=== PATIENT | male | born 1955 | race Caucasian/White ===

== ENCOUNTER 2017-08-27 14:07 | Inpatient (IN) | payer MEDICARE, MEDICAID, SELFPAY ==
[2017-08-27 14:42] VITALS: BMI 22.5; BMI 22.6
[2017-08-27 14:43] VITALS: BP 117/74; PULSE 88; RESP 20; TEMP 36.8; O2SAT 96
--- NOTE | 2017-08-27 15:26 | PCM.HP.STD ---
Problem List (1) Small and colonic ileus Status: Acute (2) Urine retention Status: Acute Comment: Possible due to bladder outlet obstruction secondary to BPH and postoperative (3) Debility Status: Chronic (4) Hip fracture Status: Acute (5) Status post total hip replacement, left Status: Acute (6) Autism Status: Chronic (7) BPH (benign prostatic hyperplasia) Status: Chronic Qualifiers: Lower urinary tract symptom presence: unspecified whether lower urinary tract symptoms present Qualified Code(s): N40.0 - Benign prostatic hyperplasia without lower urinary tract symptoms (8) GERD (gastroesophageal reflux disease) Status: Chronic Qualifiers: Esophagitis presence: esophagitis presence not specified Qualified Code(s): K21.9 - Gastro-esophageal reflux disease without esophagitis (9) HLD (hyperlipidemia) Status: Chronic Qualifiers: Hyperlipidemia type: unspecified Qualified Code(s): E78.5 - Hyperlipidemia, unspecified (10) HTN (hypertension) Status: Chronic Qualifiers: Hypertension type: essential hypertension Qualified Code(s): I10 - Essential (primary) hypertension (11) Seizure disorder Status: Chronic History of Present Illness Date of Admission: 08/27/17 Chief Complaint: Abdominal distention with discomfort. Constipation The patient is a 62 year old M with history of left subcapital displaced fracture, traumatic in nature due to fall status post left direct anterior total hip replacement on 08/25/[address] Shay was transferred to rehab on 08/26/2017 developed abdominal discomfort with distention after surgery. Patient did not had abdominal distention/pain prior to surgery and hip and pelvic x-ray does not show bowel ileus. [] Patient had abdominal distention on 08/26/2017 night along with dominant discomfort. Abdominal x-ray series was done and shows diffuse distention of the small bowel and colon but no obvious obstruction. NG tube was inserted and had notable improvement. Patient was also given Fleet enema but did not had bowel movement but passed gas. Vitals shows no tachycardia. Blood pressure on the lower side 98/50, 104/61. Currently pulse ox 94% on 2 L of oxygen. Patient was further transferred from acute rehab to [facility] floor. Past Medical History Past Medical History (Chronic Problems): Chronic Problems BPH (benign prostatic hyperplasia) (Chronic) HTN (hypertension) (Chronic) HLD (hyperlipidemia) (Chronic) Seizure disorder (Chronic) GERD (gastroesophageal reflux disease) (Chronic) Autism (Chronic) Debility (Chronic) Allergies No Known Allergies Allergy (Verified 08/24/17 20:55) Home Medications: Ambulatory Orders Medication Instructions Recorded Cholecalciferol (Vitamin D3) 5,000 unit PO DAILY 12/29/14 [Vitamin D3] Clomipramine HCl 100 mg PO QHS 12/29/14 Docusate Calcium 240 mg PO DAILY 12/29/14 Lisinopril [Zestril] 40 mg PO DAILY 12/29/14 Multivit-Min/FA/Lycopene/Lut 1 each PO DAILY 12/29/14 [Centrum Silver Tablet] [place]-3 Fatty Acids/Fish Oil [Fish 2 each PO DAILY 12/29/14 Oil 1,000 mg Capsule] Polyethylene Glycol 3350 [Miralax] 8.5 gm PO DAILY 12/29/14 Amlodipine [Norvasc] 2.5 mg PO DAILY 03/02/16 Tamsulosin HCl [Flomax] 0.8 mg PO DAILY 08/24/17 Acetaminophen [Tylenol] 500 mg PO Q8H PRN PRN 08/26/17 Oxycodone [Oxyir] 5 mg PO Q4H PRN PRN tablet 08/26/17 Rivaroxaban [Xarelto] 10 mg PO DAILY@0600 08/26/17 Senna/Docusate Sodium [Senokot-S] 2 tablet PO BID 08/26/17 Famotidine 20 mg PO 08/27/17 Finasteride [Proscar] 5 mg PO DAILY 08/27/17 Surgical History: appendectomy Psychiatric History: Anxiety, - - OCD tendencies. Smoking Status: Never smoker Review of Systems Constitutional: Reports: Weakness, Fatigue. Denies: Chills, Fever, Weight Change HEENT: Denies: Head Aches, Sinus Congestion, Sinus Drainage Cardiovascular: Denies: Chest Pain, Palpitations Respiratory: Denies: Cough, Shortness of breath at rest, Sputum production Gastrointestinal: Reports: Constipation, Nausea, - - Terminal distention. Denies: Vomiting Genitourinary: Reports: Retention - On Sims catheter. Denies: Dysuria Musculoskeletal: Reports: Joint Pain, Joint Tenderness Skin: Denies: Rash, Wounds Neurological: Denies: Numbness, Tingling, Focal weakness Psychiatric: Denies: Anxiety, Depression, Homicidal Ideations, Suicidal Ideations Hematologic/ Lymphatic: Denies: Easy Bruising, Easy Bleeding VTE Information - Inpt Only VTE Present on Admission: No VTE Mechan Device Prophylaxis: SCD's VTE Pharm Prophylaxis ordered?: Yes Patient Problems: Active and Suspected Problems Small and colonic ileus (Acute) Urine retention (Acute) Possible due to bladder outlet obstruction secondary to BPH and postoperative Objective: General: Alert, Cooperative, Lethargic, 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 Surgical dressing is dry. Expected mild postop tenderness - Physical Exam Vital Signs Temp Pulse Resp BP Pulse Ox 98.2 F 88 20 H 117/74 96 08/27/17 14:43 08/27/17 14:43 08/27/17 14:43 08/27/17 14:43 08/27/17 14:43 Oxygen Flow Rate 3 Oxygen Delivery Method Nasal Cannula Weight: 139 lb 12.369 oz Body Mass Index (BMI) 22.5 Assessment/Plan Active and Suspected Problems Small and colonic ileus (Acute) Urine retention (Acute) Possible due to bladder outlet obstruction secondary to BPH and postoperative The patient is a 62 year old M with history of left subcapital displaced fracture, traumatic in nature due to fall status post left direct anterior total hip replacement on 08/25/[address] Shay was transferred to rehab on 08/26/2017 developed abdominal discomfort with distention after surgery. Patient did not had abdominal distention/pain prior to surgery and hip and pelvic x-ray does not show bowel ileus. [] Patient had abdominal distention on 08/26/2017 night along with dominant discomfort. Abdominal x-ray series was done and shows diffuse distention of the small bowel and colon but no obvious obstruction. NG tube was inserted and had notable improvement. Patient was also given Fleet enema but did not had bowel movement but passed gas. Vitals shows no tachycardia. Blood pressure on the lower side 98/50, 104/61. Currently pulse ox 94% on 2 L of oxygen. Patient was further transferred from acute rehab to [facility] floor. (1) small bowel and colonic ileus most probably postoperative due to opioid and anesthetic agents: Patient is being transferred from acute rehab to the [facility] floor. Acute abdomen series shows diffusely gaseous distended bowel loops throughout the abdomen and pelvis Suggestive of diffuse ileus. distended stomach with retained gastric content. Discussed with surgeon, Dr. Lopez. NG tube ordered. Repeat abdominal series x-ray tomorrow morning. On IV fluid normal saline. On bowel regimen including enema and suppository. Keep the patient n.p.o. 2 ) General debility, Left hip pain s/p mechanical fall w/ left subcapital displaced fracture: Plain film noting left subcapital displaced fracture. Patient had left direct anterior total hip replacement by Dr. Shay on 08/25/2017. Postop day 2. Patient had orthopedic surgery consultation by Dr. Shay. Autism, OCD Tendencies: Maintain on home regimen clomipramine. (3) Hypertension: Patient was on home regimen including Norvasc, lisinopril, PRN hydralazine. Temporarily hold it until the bowel ileus clears up (4) Hyperlipidemia: Not on a statin. (5) BPH with possible bladder outlet obstruction with history of urine retention and Sims catheterization in the past: Currently patient has Sims catheter. Dark urine. UA is negative. Sims catheter was inserted and then removed on 08/26/2017. Patient had urine retention and Sims catheter was reinserted. Will resume dutasteride and Flomax after ileus is resolved. (6) GERD: On IV PPI (7) Hx Seizure disorder: Not on AED, remote, youth (12 years old per family, no marked recurrence). Discussed with the neurologist Dr. Monge. Patient is on clomipramine. On IV Ativan prn. (8) DVT Prophylaxis: SCDs, lovenox Code Visit Inpatient E&M: 03649 Init Hosp L3
--- NOTE | 2017-08-27 15:44 | NURSING ---
Lab staff arrives to collect blood samples.
[2017-08-27 15:59] LABS: Absolute Lymphocyte Count 1.48 X10^3/ul (0.83-4.51); Absolute Neutrophil Count 8.1 X10^3/uL (2.0-7.7); Basophil# 0.07 X10^3/uL; Basophil% 0.6 % (0-1); Eosinophil# 0.08 X10^3/uL; Eosinophils% 0.7 % (0-5); Hematocrit 25.2 % (40-54); Hemoglobin 8.4 g/dl (13.0-16.5); Lymphocyte # 1.48 X10^3/ul (4.0); Lymphocyte % 13.3 % (19-41); Mean Corp Hgb Conc 33.3 g/gl (32-36); Mean Corpuscular Hgb 30.9 pg (27.0-32.0); Mean Corpuscular Volume 92.6 fL (80-94); Mean Platelet Vol. 9.8 fl (6.2-12.0); Monocyte# 1.39 X10^3/uL; Monocyte% 12.5 % (0-10); Neutrophil # 8.06 X10^3/uL (2.7-7.7); Neutrophil % 72.8 % (47-70); POSITIVE DIFFERENTIAL NO; Platelet Count 191 K/mm3 (150-450); RBC Distribution Width CV 13.6 % (11.6-14.6); RBC Distribution Width SD 45.5 fl (35.1-43.9); Red Blood Count 2.72 M/mm3 (4.6-6.2); White Blood Count 11.1 K/mm3 (4.4-11.0)
[2017-08-27 16:00] LABS: POSITIVE COUNT NO; POSITIVE MORPHOLOGY NO
--- NOTE | 2017-08-27 16:09 | RAD_ITS ---
STUDY: X-RAY - ABDOMEN/PELVIS REASON FOR EXAM: Male, 62 years old. NG tube placement TECHNIQUE: Single AP view of the abdomen / pelvis. COMPARISON: Films of the abdomen earlier FINDINGS: NG tube noted with its tip in side port both within the stomach. Gaseous dilated stomach and loops of colon and possible small bowel. Large bowel demonstrates fecal retention. RAD/Abdomen Single View IMPRESSION: NG tube with tip and side-port in the stomach. Gaseous dilated small and large bowel. Electronically Signed: Branden Villeda DO at 17:33 EST Tel , Service support ,
[2017-08-27 16:13] LABS: ALB/GLOB Ratio 0.7 RATIO (0.9-2.4); AST(SGOT) 22 U/L (15-37); Alanine Aminotransfer ALT/SGPT 23 U/L (12-78); Albumin, Serum 2.4 g/dL (3.4-5.0); Alkaline Phosphatase 62 U/L (45-117); Anion Gap 7 (5-15); BUN 28 mg/dL (7-18); BUN/Creat Ratio 37.9 RATIO (10-20); Calcium,Total 8.2 mg/dL (8.5-10.1); Chloride 103 mmol/L (98-107); Creatinine, Serum 0.74 mg/dL (0.70-1.30); EST Glomerular Filtration Rate 115 mL/min (>60); Est Glom Filt Rate - Afr Amer 139 mL/min (>60); Globulin 3.5 g/dL (2.2-4.2); Glucose 103 mg/dL (70-110); Magnesium 1.9 mg/dL (1.6-2.6); Potassium 3.7 mmol/L (3.5-5.1); Protein, Total 5.9 g/dL (6.4-8.2); Sodium Level 136 mmol/L (136-145)
--- NOTE | 2017-08-27 16:21 | NURSING ---
radiology notified of readiness for xray to verify NG placement.
--- NOTE | 2017-08-27 17:26 | CON.PCM_ITS ---
Problem List (1) Postoperative ileus Status: Acute Reason for Consult Date of Consultation: 08/27/17 History of Present Illness: The patient is a 62 year old M who was readmitted to the hospital with a postoperative complication status post left total hip replacement. The patient was admitted by EUGENE Ferrell on August 25, 2017. He was seen in consultation by Dr. Shay and subsequently on August 25 underwent a left direct anterior total hip replacement. The patient postoperatively was provided a regular diet. He was discharged to the rehab unit where he had progressive postoperative distention. An NG tube was placed with some improvement. The patient was given a soapsuds enema here today with some result. The patient has autism and so getting information from him is challenged. Both parents are present in the room with him today. He currently is rehospitalized with an NG tube and Sims catheter in place. Abdominal x- rays that were obtained demonstrates significant gaseous distention of small and large bowel. There is distended stomach with a significant amount of retained gastric contents. His white blood cell count is 11.1 and he is significantly anemic with a hemoglobin of 8.4 and hematocrit of 25.2 and a platelet count of 191,000. There is a slight left shift with 72.8% neutrophils. His BUN is elevated at 28 and creatinine is 0.74. Albumin is low at 2.4. A repeat abdominal x-ray was taken to confirm NG tube placement. I believe I was given report that the patient removed his tube. Fortunately the current findings suggest that the gastric contents have diminished. There is still significant distention of the colon throughout with also still distended small bowel. Maximum colonic diameter is 10 cm. It is of note that family provides history that the patient has had BPH with outlet obstruction. He has been seen by . In addition the patient has chronic constipation. He takes routine daily MiraLAX which causes his stools to be quite loose and watery. If he does not utilize this he becomes severely constipated. I have evidence of a CT scan of the abdomen that was obtained March 02, 2016. That demonstrated marked dilatation of the small bowel and colon with large fecal residue in the descending colon sigmoid colon and rectum. Findings were concerning at that time for ileus versus rectal obstruction. According to family members the patient has a high pain tolerance. The only previous abdominal procedure that he has had was a remote open appendectomy. I have been asked to see this patient by Dr. Blank for general surgical consultation regarding abdominal distention and suspected postoperative ileus. An electronic copy of my consult will be included in the chart Past Medical History Past Medical History (Chronic Problems): Chronic Problems BPH (benign prostatic hyperplasia) (Chronic) HTN (hypertension) (Chronic) HLD (hyperlipidemia) (Chronic) Seizure disorder (Chronic) GERD (gastroesophageal reflux disease) (Chronic) Autism (Chronic) Debility (Chronic) Allergies No Known Allergies Allergy (Verified 08/24/17 20:55) Home Medications: Ambulatory Orders Medication Instructions Recorded Cholecalciferol (Vitamin D3) 5,000 unit PO DAILY 12/29/14 [Vitamin D3] Clomipramine HCl 100 mg PO QHS 12/29/14 Docusate Calcium 240 mg PO DAILY 12/29/14 Lisinopril [Zestril] 40 mg PO DAILY 12/29/14 Multivit-Min/FA/Lycopene/Lut 1 each PO DAILY 12/29/14 [Centrum Silver Tablet] [place]-3 Fatty Acids/Fish Oil [Fish 2 each PO DAILY 12/29/14 Oil 1,000 mg Capsule] Polyethylene Glycol 3350 [Miralax] 8.5 gm PO DAILY 12/29/14 Amlodipine [Norvasc] 2.5 mg PO DAILY 03/02/16 Tamsulosin HCl [Flomax] 0.8 mg PO DAILY 08/24/17 Acetaminophen [Tylenol] 500 mg PO Q8H PRN PRN 08/26/17 Oxycodone [Oxyir] 5 mg PO Q4H PRN PRN tablet 08/26/17 Rivaroxaban [Xarelto] 10 mg PO DAILY@0600 08/26/17 Senna/Docusate Sodium [Senokot-S] 2 tablet PO BID 08/26/17 Famotidine 20 mg PO 08/27/17 Finasteride [Proscar] 5 mg PO DAILY 08/27/17 Surgical History: appendectomy Psychiatric History: Anxiety, - - OCD tendencies. Smoking Status: Never smoker Review of Systems Gastrointestinal: Denies: Abdominal Pain Unable to obtain accurate/complete ROS d/t: Autism. Unable to obtain Patient Problems: Active and Suspected Problems Small and colonic ileus (Acute) Urine retention (Acute) Possible due to bladder outlet obstruction secondary to BPH and postoperative Postoperative ileus (Acute) - Physical Exam General: - - Patient is able to be aroused. He does not appear to be in acute distress and is resting comfortably. NG tube and Sims in place. Oral: Moist Mucosa Lungs: Clear to auscultation Cardiovascular: Regular rate Abdomen: Soft, Non Tender, Distended, - - Very few intermittent bowel sounds noted Well-healed transverse incision right lower quadrant No gross inguinal defects Extremities: No clubbing, No Calf Tenderness Vital Signs Temp Pulse Resp BP Pulse Ox 98.2 F 88 20 H 117/74 96 08/27/17 14:43 08/27/17 14:43 08/27/17 14:43 08/27/17 14:43 08/27/17 14:43 Oxygen Flow Rate 3 Oxygen Delivery Method Nasal Cannula Weight: 139 lb 12.369 oz Body Mass Index (BMI) 22.5 Laboratory Tests Past 24 Hrs 08/27/17 08/27/17 15:47 15:47 WBC 11.1 H RBC 2.72 L Hgb 8.4 L Hct 25.2 L MCV 92.6 MCH 30.9 MCHC 33.3 RDW 13.6 RDW Differential 45.5 H Plt Count 191 MPV 9.8 Immature Gran % (Auto) 0.100 Neut % (Auto) 72.8 H Lymph % (Auto) 13.3 L [place] % (Auto) 12.5 H Eos % (Auto) 0.7 Baso % (Auto) 0.6 Absolute Neuts (auto) 8.1 H Absolute Lymphs (auto) 1.48 Total Counted Not Reportable Sodium 136 Potassium 3.7 Chloride 103 Carbon Dioxide 26.0 Anion Gap 7 BUN 28 H Creatinine 0.74 Estim Creat Clear Calc 95.20 Est GFR (MDRD) Af Amer 139 Est GFR (MDRD) Non-Af 115 BUN/Creatinine Ratio 37.9 H Glucose 103 Calcium 8.2 L Magnesium 1.9 Total Bilirubin 0.40 AST 22 ALT 23 Alkaline Phosphatase 62 Total Protein 5.9 L Albumin 2.4 L Globulin 3.5 Albumin/Globulin Ratio 0.7 L Assessment/Plan Active and Suspected Problems Small and colonic ileus (Acute) Urine retention (Acute) Possible due to bladder outlet obstruction secondary to BPH and postoperative Postoperative ileus (Acute) 62-year-old gentleman with autism and history of chronic constipation consistent with institutionalized bowel. He is on chronic MiraLAX therapy. In 2016 he presented with what appears to have been severe left-sided constipation. On this occasion he had a traumatic hip fracture with surgical repair. Patient was provided narcotics. He was immediately initiated on a regular diet. Abdominal x-rays show findings of the very full stomach and ileus pattern. This will represent a combination of acute and chronic disease. Findings are consistent with postoperative ileus. There are no findings that would suggest bowel obstruction. I do not recommend providing either oral laxatives or rectal enemas at this time. I do believe that the patient should ambulate with assistance. Narcotics should be held. I will recheck abdominal x-rays in the morning. The patient likely chronically has a degree of colonic distention but will need to assess for critical colonic diameter. Currently he does not appear to have an acute surgical abdomen. Will follow with you. Andrez Lopez M.D., F.A.C.S.
--- NOTE | 2017-08-27 17:35 | NURSING ---
Charge nurse, Emy Lopez RN, notifies this nurse that patient has pulled out NG tube. Dr. Lopez notified.
[2017-08-27] MEDS: 0.9% NaCl Peripheral Flush Adult/Peds IV (18:47)
--- NOTE | 2017-08-27 18:48 | RAD_ITS ---
STUDY: X-RAY - ABDOMEN/PELVIS REASON FOR EXAM: Male, 62 years old. An NG tube TECHNIQUE: Single AP view of the abdomen / pelvis. COMPARISON: None. FINDINGS: Enteric tube is seen extending to the left upper abdomen/stomach. Diffuse gaseous distention throughout small bowel and proximal colon with some colonic fecal residue identified. Lower abdomen is not imaged. Degree of bowel dilation is mildly decreased as compared to prior study performed earlier today. There is no demonstrated free abdominal air. The visualized liver, spleen and kidneys are grossly normal in size and morphology. Normal soft tissue structures. There are diffuse degenerative changes of the visualized lumbar spine. RAD/Abdomen Single View (Portable) IMPRESSION: 1. Satisfactory position of enteric tube extending to the stomach. Persistent diffuse large and small bowel ileus. Distal obstruction is felt to be less likely. Electronically Signed: Tomer Awan MD at 21:44 EST , Service support ,
[2017-08-27 20:43] VITALS: BP 123/75; PULSE 80; RESP 20; TEMP 37; O2SAT 95
[2017-08-27 22:52] VITALS: O2SAT 95
--- NOTE | 2017-08-28 00:09 | RAD_ITS ---
STUDY: X-RAY - ABDOMEN/PELVIS REASON FOR EXAM: Male, 62 years old. Nasogastric tube placement. TECHNIQUE: Single AP view of the abdomen / pelvis. COMPARISON: Radiograph of the abdomen dated August 27, 2017. FINDINGS: Normal visualized lung bases. There is a large amount of bowel gas throughout the abdomen and pelvis with gaseous distention of small and large bowel. Enteric tube is present with the tip in the left upper quadrant, probably within the stomach. There is no obvious organomegaly, mass or pathologic calcifications. Normal soft tissue structures. The bones appear osteopenic. RAD/Abdomen Single View (Portable) IMPRESSION: 1. Enteric tube tip appears to be within the stomach. 2. Unchanged appearance of large amount of bowel gas. Electronically Signed: Lianne Tellez MD at 1:47 EST , Service support ,
[2017-08-28 02:43] VITALS: BP 138/73; PULSE 89; RESP 16; TEMP 36.9; O2SAT 93
--- NOTE | 2017-08-28 03:10 | NURSING ---
Up to bathroom with 1 assist and walker. Had large loose BM. Ambulated in [place] and assist back to bed. NG to LCWS. Denies pain.
--- NOTE | 2017-08-28 05:00 | RAD_ITS ---
STUDY: X-RAY - ABDOMEN/PELVIS REASON FOR EXAM: Male, 62 years old. Abdominal distention. TECHNIQUE: AP supine and upright views of the abdomen and pelvis. COMPARISON: Radiographs of the abdomen dated August 28, 2017. FINDINGS: Normal visualized lung bases. There is a large amount of bowel gas throughout small bowel and large bowel in the abdomen and pelvis. Enteric tube is visible within the left upper quadrant and probably in the stomach. There is no obvious organomegaly or mass. No pathologic calcifications are visualized. Normal soft tissue structures. Patient has had a total left hip orthoplasty. RAD/Abd Inc Decub and/or Erect IMPRESSION: Large amount of bowel gas, similar to previous study. Electronically Signed: Lianne Tellez MD at 5:43 EST , Service support ,
[2017-08-28 06:44] LABS: Absolute Lymphocyte Count 1.53 X10^3/ul (0.83-4.51); Absolute Neutrophil Count 7.1 X10^3/uL (2.0-7.7); Basophil# 0.06 X10^3/uL; Basophil% 0.6 % (0-1); Eosinophil# 0.11 X10^3/uL; Eosinophils% 1.1 % (0-5); Hematocrit 23.7 % (40-54); Hemoglobin 7.9 g/dl (13.0-16.5); Lymphocyte # 1.53 X10^3/ul (4.0); Lymphocyte % 15.3 % (19-41); Mean Corp Hgb Conc 33.3 g/gl (32-36); Mean Corpuscular Volume 92.9 fL (80-94); Mean Platelet Vol. 9.9 fl (6.2-12.0); Neutrophil # 7.09 X10^3/uL (2.7-7.7); Neutrophil % 70.7 % (47-70); Platelet Count 217 K/mm3 (150-450); RBC Distribution Width CV 13.6 % (11.6-14.6); RBC Distribution Width SD 46.5 fl (35.1-43.9); Red Blood Count 2.55 M/mm3 (4.6-6.2)
[2017-08-28 06:46] LABS: POSITIVE COUNT NO; POSITIVE DIFFERENTIAL NO; POSITIVE MORPHOLOGY NO
--- NOTE | 2017-08-28 07:05 | PN.SURG_ITS ---
Patient Problems: Active and Suspected Problems Small and colonic ileus (Acute) Urine retention (Acute) Possible due to bladder outlet obstruction secondary to BPH and postoperative Postoperative ileus (Acute) Subjective: Pt appears comfortable Report of very large stool this a.m. approx 3:30am AXRs no change--no enlargement of cecum - Physical Exam Abdomen: Bowel Sounds Present, Soft, Non Tender Vital Signs Temp Pulse Resp BP Pulse Ox 98.4 F 89 16 138/73 H 93 08/28/17 02:43 08/28/17 02:43 08/28/17 02:43 08/28/17 02:43 08/28/17 02:43 Oxygen Flow Rate 3 Oxygen Delivery Method Nasal Cannula Weight: 139 lb 12.369 oz Body Mass Index (BMI) 22.5 Intake and Output for Last 24 Hours 08/26/17 08/27/17 08/28/17 23:59 23:59 23:59 Intake Total 1085 / 1085 Output Total 1500 / 1500 Balance -415 / -415 Laboratory Tests Past 24 Hrs 08/27/17 08/27/17 08/28/17 15:47 15:47 05:48 WBC 11.1 H 10.0 RBC 2.72 L 2.55 L Hgb 8.4 L 7.9 L Hct 25.2 L 23.7 L MCV 92.6 92.9 MCH 30.9 31.0 MCHC 33.3 33.3 RDW 13.6 13.6 RDW Differential 45.5 H 46.5 H Plt Count 191 217 MPV 9.8 9.9 Immature Gran % (Auto) 0.100 0.300 Neut % (Auto) 72.8 H 70.7 H Lymph % (Auto) 13.3 L 15.3 L [place] % (Auto) 12.5 H 12.0 H Eos % (Auto) 0.7 1.1 Baso % (Auto) 0.6 0.6 Absolute Neuts (auto) 8.1 H 7.1 Absolute Lymphs (auto) 1.48 1.53 Total Counted Not Reportable Not Reportable Sodium 136 Potassium 3.7 Chloride 103 Carbon Dioxide 26.0 Anion Gap 7 BUN 28 H Creatinine 0.74 Estim Creat Clear Calc 95.20 Est GFR (MDRD) Af Amer 139 Est GFR (MDRD) Non-Af 115 BUN/Creatinine Ratio 37.9 H Glucose 103 Calcium 8.2 L Magnesium 1.9 Total Bilirubin 0.40 AST 22 ALT 23 Alkaline Phosphatase 62 Total Protein 5.9 L Albumin 2.4 L Globulin 3.5 Albumin/Globulin Ratio 0.7 L 08/28/17 05:48 WBC RBC Hgb Hct MCV MCH MCHC RDW RDW Differential Plt Count MPV Immature Gran % (Auto) Neut % (Auto) Lymph % (Auto) [place] % (Auto) Eos % (Auto) Baso % (Auto) Absolute Neuts (auto) Absolute Lymphs (auto) Total Counted Sodium Pending Potassium Pending Chloride Pending Carbon Dioxide Pending Anion Gap Pending BUN Pending Creatinine Pending Estim Creat Clear Calc Est GFR (MDRD) Af Amer Pending Est GFR (MDRD) Non-Af Pending BUN/Creatinine Ratio Pending Glucose Pending Calcium Pending Magnesium Total Bilirubin AST ALT Alkaline Phosphatase Total Protein Albumin Globulin Albumin/Globulin Ratio Assessment/Plan Active and Suspected Problems Small and colonic ileus (Acute) Urine retention (Acute) Possible due to bladder outlet obstruction secondary to BPH and postoperative Postoperative ileus (Acute) BS are now present and pt has has a non-stimulated large stool Will start clears and if tolerated then can advance as tolerated Can resume his routine miralax bowel regimen His xrays will never return to normal b/o his institutionalized bowel May discharge when tolerates p.o.
--- NOTE | 2017-08-28 07:15 | NURSING ---
NG tube removed per Dr. Baird order. Restraints removed. Bed alarm on.
[2017-08-28 07:20] VITALS: O2SAT 90
[2017-08-28 07:28] LABS: Anion Gap 9 (5-15); BUN 21 mg/dL (7-18); BUN/Creat Ratio 38.4 RATIO (10-20); Chloride 101 mmol/L (98-107); Creatinine, Serum 0.55 mg/dL (0.70-1.30); EST Glomerular Filtration Rate 162 mL/min (>60); Est Glom Filt Rate - Afr Amer 196 mL/min (>60); Estimated Creatinine Clearance 128.08 ml/min; Glucose 86 mg/dL (70-110); Potassium 3.7 mmol/L (3.5-5.1); Sodium Level 135 mmol/L (136-145)
[2017-08-28 07:58] VITALS: BP 135/80; PULSE 95; RESP 16; TEMP 37; O2SAT 90
--- NOTE | 2017-08-28 08:01 | PCM.PN.HOSP ---
Patient Problems: Active and Suspected Problems Small and colonic ileus (Acute) Urine retention (Acute) Possible due to bladder outlet obstruction secondary to BPH and postoperative Postoperative ileus (Acute) Subjective: Patient seen and examined in the presence of patient's father and brother. As per the nursing staff, patient has large loose BM or this morning. Patient ambulating in the oliveira in the morning. Vitals/I&O's: Vital Signs Temp Pulse Resp BP Pulse Ox 98.4 F 89 16 138/73 H 93 08/28/17 02:43 08/28/17 02:43 08/28/17 02:43 08/28/17 02:43 08/28/17 02:43 Oxygen Flow Rate 3 Oxygen Delivery Method Nasal Cannula Weight: 139 lb 12.369 oz Body Mass Index (BMI) 22.5 Intake and Output for Last 24 Hours 08/26/17 08/27/17 08/28/17 23:59 23:59 23:59 Intake Total 1085 / 1085 Output Total 1500 / 1500 Balance -415 / -415 General: Alert, Oriented x3, Cooperative HEENT: Atraumatic, PERRLA, EOMI, Normocephalic Neck: Supple, No JVD, Negative Carotid Bruits Lungs: Clear to auscultation, Normal air movement, No rhonchi, No wheeze, No rales Cardiovascular: Regular rate, Regular Rhythm, Normal S1, Normal S2, No murmurs Abdomen: Bowel Sounds Present, Soft, Non Tender, Non-Distended, Hypoactive Bowel Sounds Extremities: No edema, Capillary Refill Less than 3 Seconds Skin: No rashes, No breakdown Musculoskeletal: No Tenderness to Palpation of Joints or Extremities, - - No tenderness over the left hip present. Dressing is dry Neurological: Cranial nerves II-XII grossly intact Psych/Mental Status: Normal Affect, Appropriate Laboratory Results 08/27/17 15:47: WBC 11.1 H, RBC 2.72 L, Hgb 8.4 L, Hct 25.2 L, MCV 92.6, MCH 30.9, MCHC 33.3, RDW 13.6, RDW Differential 45.5 H, Plt Count 191, MPV 9.8, Immature Gran % (Auto) 0.100, Neut % (Auto) 72.8 H, Lymph % (Auto) 13.3 L, [place] % (Auto) 12.5 H, Eos % (Auto) 0.7, Baso % (Auto) 0.6, Absolute Neuts (auto) 8.1 H, Absolute Lymphs (auto) 1.48, Total Counted Not Reportable 08/27/17 15:47: Sodium 136, Potassium 3.7, Chloride 103, Carbon Dioxide 26.0, Anion Gap 7, BUN 28 H, Creatinine 0.74, Estim Creat Clear Calc 95.20, Est GFR (MDRD) Af Amer 139, Est GFR (MDRD) Non-Af 115, BUN/Creatinine Ratio 37.9 H, Glucose 103, Calcium 8.2 L, Magnesium 1.9, Total Bilirubin 0.40, AST 22, ALT 23, Alkaline Phosphatase 62, Total Protein 5.9 L, Albumin 2.4 L, Globulin 3.5, Albumin/Globulin Ratio 0.7 L 08/28/17 05:48: WBC 10.0, RBC 2.55 L, Hgb 7.9 L, Hct 23.7 L, MCV 92.9, MCH 31.0, MCHC 33.3, RDW 13.6, RDW Differential 46.5 H, Plt Count 217, MPV 9.9, Immature Gran % (Auto) 0.300, Neut % (Auto) 70.7 H, Lymph % (Auto) 15.3 L, [place] % (Auto) 12.0 H, Eos % (Auto) 1.1, Baso % (Auto) 0.6, Absolute Neuts (auto) 7.1, Absolute Lymphs (auto) 1.53, Total Counted Not Reportable 08/28/17 05:48: Sodium 135 L, Potassium 3.7, Chloride 101, Carbon Dioxide 25.0, Anion Gap 9, BUN 21 H, Creatinine 0.55 L, Estim Creat Clear Calc 128.08, Est GFR (MDRD) Af Amer 196, Est GFR (MDRD) Non-Af 162, BUN/Creatinine Ratio 38.4 H, Glucose 86, Calcium 8.0 L Current Medications Acetaminophen (Tylenol) 500 mg PO Q8H PRN PRN PRN Reason: mild/mod pain or fever Amlodipine Besylate (Norvasc) 2.5 mg PO DAILY COUNT INCLUDES [facility] Clomipramine HCl (Anafranil) 100 mg PO QHS [facility] Enoxaparin Sodium (Lovenox) 40 mg SC DAILY@1000 [facility] Finasteride (Proscar) 5 mg PO DAILY COUNT INCLUDES [facility] Hydralazine HCl (Apresoline) 10 mg IV Q4H PRN PRN PRN Reason: SBP>170 mmhg Potassium Chloride/Sodium Chloride () 1,000 mls @ 100 mls/hr IV .Q10H COUNT INCLUDES [facility] Last Admin: 08/28/17 07:11 Dose: 100 mls/hr Pantoprazole Sodium 40 mg/ (Sodium Chloride) 110 mls @ 330 mls/hr IV Q24 [facility] Last Admin: 08/27/17 18:41 Dose: 330 mls/hr Lisinopril (Zestril) 40 mg PO DAILY COUNT [facility]CLUDES [facility] Lorazepam (Ativan) 2 mg IV Q4H PRN PRN PRN Reason: Seizure Ondansetron HCl (Zofran) 4 mg IV Q4H PRN PRN PRN Reason: NAUSEA Polyethylene Glycol (Miralax) 8.5 gm PO DAILY COUNT INCLUDES [facility] Promethazine HCl (Phenergan (Ll)) 12.5 mg IV Q6H PRN PRN PRN Reason: NAUSEA/VOMITING Senna/Docusate Sodium (Senokot-S, Anastacia-Colace) 2 tablet PO BID COUNT [facility]CLUDES [facility] Sodium Chloride () 5 - 30 ml IV UD PRN PRN Reason: SALINE FLUSH Last Admin: 08/27/17 18:47 Dose: 5 ml Tamsulosin HCl (Flomax) 0.8 mg PO DAILY COUNT [facility]CLUDES [facility] Tramadol HCl (Ultram (G)) 50 mg PO Q6H PRN PRN PRN Reason: MODERATE PAIN (4-5/10) Tramadol HCl (Ultram (G)) 100 mg PO Q6H PRN PRN PRN Reason: severe pain Assessment/Plan Active and Suspected Problems Small and colonic ileus (Acute) Urine retention (Acute) Possible due to bladder outlet obstruction secondary to BPH and postoperative Postoperative ileus (Acute) The patient is a 62 year old M with history of left subcapital displaced fracture, traumatic in nature due to fall status post left direct anterior total hip replacement on 08/25/[address] Shay was transferred to rehab on 08/26/2017 developed abdominal discomfort with distention after surgery. Patient did not had abdominal distention/pain prior to surgery and hip and pelvic x-ray does not show bowel ileus. Patient has history of chronic constipation. He did move bowels for 7 days prior to admission. He also had history of marked dilatation of the small bowel and colon with large fecal residue descending colon, sigmoid colon and rectum as per the CT abdomen March 02, 2016. At that time, there was concern of rectal obstruction/ileus. [] Patient had abdominal distention on 08/26/2017 night along with dominant discomfort. Abdominal x-ray series was done and shows diffuse distention of the small bowel and colon but no obvious obstruction. NG tube was inserted and had notable improvement. Patient was also given Fleet enema but did not had bowel movement but passed gas. Vitals shows no tachycardia. Blood pressure on the lower side 98/50, 104/61. Currently pulse ox 94% on 2 L of oxygen. Patient was further transferred from acute rehab to [facility]. (1) small bowel and colonic ileus most probably postoperative due to opioid and anesthetic agents: Patient is being transferred from acute rehab to the [facility]. Acute abdomen series shows diffusely gaseous distended bowel loops throughout the abdomen and pelvis suggestive of diffuse ileus, distended stomach gas and retained gastric content. Discussed with surgeon, Dr. Lopez. NG tube was placed but patient removed. Repeat abdominal series x-ray was done today morning and shows large amount of bowel gas. Patient is responding well with Fleet enema and bowel regimen. Dr. Lopez consult reviewed and appreciated. On IV fluid normal saline. On bowel regimen senna S, MiraLAX including enema and suppository. The patient is started on clear liquid diet. Oral medications resumed. As per his father, BPH runs in his family has patient's grandfather, father all had TURP surgery. 2 ) General debility, Left hip pain s/p mechanical fall w/ left subcapital displaced fracture: Plain film noting left subcapital displaced fracture. Patient is doing good with the physical therapy Patient had left direct anterior total hip replacement by Dr. Shay on 08/25/2017. Postop day 3. Patient had orthopedic surgery consultation by Dr. Shay. Autism, OCD Tendencies: Maintain on home regimen clomipramine. (3) Hypertension: Patient was on home regimen including Norvasc, lisinopril, PRN hydralazine. Temporarily hold it until the bowel ileus clears up (4) Hyperlipidemia: Not on a statin. (5) BPH with possible bladder outlet obstruction with history of urine retention and Sims catheterization in the past: Currently patient has Sims catheter. Dark urine. UA is negative. Sims catheter was inserted and then removed on 08/26/2017. Patient had urine retention and Sims catheter was reinserted. Will resume dutasteride and Flomax after ileus is resolved. Patient follows Dr. Diehl. I think most probably will require Surgery as he still has urinary retention with bladder outlet obstruction on BPH medications. (6) GERD: On IV PPI (7) Hx Seizure disorder: Not on AED, remote, youth (12 years old per family, no marked recurrence). Discussed with the neurologist Dr. Monge. Patient is on clomipramine. On IV Ativan prn. (8) DVT Prophylaxis: SCDs, lovenox Overall, hospital course from the beginning including fall, left hip total replacement, rehab and small and colonic ileus management was discussed with the patient's father and his brother. All questions were answered. Discharge plan anticipate discharge to rehab in 1-2 days. Clinical Impression(s) from Imaging Studies KUB X-Ray 08/28/17 00:09 IMPRESSION: 1. Enteric tube tip appears to be within the stomach. 2. Unchanged appearance of large amount of bowel gas. Electronically Signed: Lianne Tellez MD at 1:47 EST , Service support , Abdomen X-Ray 08/28/17 05:00 IMPRESSION: Large amount of bowel gas, similar to previous study. Electronically Signed: Lianne Tellez MD at 5:43 EST , Service support , Laboratory Results 08/27/17 15:47: WBC 11.1 H, RBC 2.72 L, Hgb 8.4 L, Hct 25.2 L, MCV 92.6, MCH 30.9, MCHC 33.3, RDW 13.6, RDW Differential 45.5 H, Plt Count 191, MPV 9.8, Immature Gran % (Auto) 0.100, Neut % (Auto) 72.8 H, Lymph % (Auto) 13.3 L, [place] % (Auto) 12.5 H, Eos % (Auto) 0.7, Baso % (Auto) 0.6, Absolute Neuts (auto) 8.1 H, Absolute Lymphs (auto) 1.48, Total Counted Not Reportable 08/27/17 15:47: Sodium 136, Potassium 3.7, Chloride 103, Carbon Dioxide 26.0, Anion Gap 7, BUN 28 H, Creatinine 0.74, Estim Creat Clear Calc 95.20, Est GFR (MDRD) Af Amer 139, Est GFR (MDRD) Non-Af 115, BUN/Creatinine Ratio 37.9 H, Glucose 103, Calcium 8.2 L, Magnesium 1.9, Total Bilirubin 0.40, AST 22, ALT 23, Alkaline Phosphatase 62, Total Protein 5.9 L, Albumin 2.4 L, Globulin 3.5, Albumin/Globulin Ratio 0.7 L 08/28/17 05:48: WBC 10.0, RBC 2.55 L, Hgb 7.9 L, Hct 23.7 L, MCV 92.9, MCH 31.0, MCHC 33.3, RDW 13.6, RDW Differential 46.5 H, Plt Count 217, MPV 9.9, Immature Gran % (Auto) 0.300, Neut % (Auto) 70.7 H, Lymph % (Auto) 15.3 L, [place] % (Auto) 12.0 H, Eos % (Auto) 1.1, Baso % (Auto) 0.6, Absolute Neuts (auto) 7.1, Absolute Lymphs (auto) 1.53, Total Counted Not Reportable 08/28/17 05:48: Sodium 135 L, Potassium 3.7, Chloride 101, Carbon Dioxide 25.0, Anion Gap 9, BUN 21 H, Creatinine 0.55 L, Estim Creat Clear Calc 128.08, Est GFR (MDRD) Af Amer 196, Est GFR (MDRD) Non-Af 162, BUN/Creatinine Ratio 38.4 H, Glucose 86, Calcium 8.0 L This note was generated with [employer] software. Every effort was made to ensure accuracy, however computerized fire management specialist mistakes may persist. Code Visit Inpatient E&M: 15720 Subs Hosp L3
[2017-08-28 09:58] VITALS: BP 114/80; PULSE 88; RESP 16; TEMP 37.4; O2SAT 95
[2017-08-28] MEDS: Enoxaparin 40 MG/0.4 ML Syringe SC (10:07)
[2017-08-28] MEDS: Polyethylene Glycol 3350 17 GM PACKET 8.5 GM PO (10:07)
[2017-08-28] MEDS: amLODIPine 2.5 MG Tablet PO (10:07)
[2017-08-28] MEDS: Senna/Docusate Sodium 1 Tablet 2 TABLET PO (10:08)
[2017-08-28] MEDS: Lisinopril 40 MG Tablet PO (10:08)
[2017-08-28] MEDS: Finasteride 5 MG Tablet PO (10:11)
[2017-08-28 16:32] VITALS: BP 119/67; PULSE 88; RESP 16; TEMP 37; O2SAT 94
[2017-08-28] MEDS: Tamsulosin HCl 0.4 MG Capsule 0.8 MG PO (16:39)
[2017-08-28 20:30] VITALS: BP 130/76; PULSE 83; RESP 18; TEMP 36.9; O2SAT 94
[2017-08-29 02:30] VITALS: BP 130/79; PULSE 90; RESP 16; TEMP 36.2; O2SAT 94
--- NOTE | 2017-08-29 05:42 | PCM.PN.SRG ---
Patient Problems: Active and Suspected Problems Small and colonic ileus (Acute) Urine retention (Acute) Possible due to bladder outlet obstruction secondary to BPH and postoperative Postoperative ileus (Acute) Subjective: Pt appears very comfortable Report of liquid stool/diarrhea - Physical Exam General: Cooperative Abdomen: Bowel Sounds Present, Soft, Non Tender Vital Signs Temp Pulse Resp BP Pulse Ox 97.2 F L 90 16 130/79 H 94 08/29/17 02:30 08/29/17 02:30 08/29/17 02:30 08/29/17 02:30 08/29/17 02:30 Oxygen Flow Rate 2 Oxygen Delivery Method Room Air Weight: 139 lb 12.369 oz Body Mass Index (BMI) 22.5 Intake and Output for Last 24 Hours 08/27/17 08/28/17 08/29/17 23:59 23:59 23:59 Intake Total 2437 / 2437 1500 / 1500 Output Total 2225 / 2225 1350 / 1350 Balance 212 / 212 150 / 150 Laboratory Tests Past 24 Hrs 08/28/17 08/28/17 05:48 05:48 WBC 10.0 RBC 2.55 L Hgb 7.9 L Hct 23.7 L MCV 92.9 MCH 31.0 MCHC 33.3 RDW 13.6 RDW Differential 46.5 H Plt Count 217 MPV 9.9 Immature Gran % (Auto) 0.300 Neut % (Auto) 70.7 H Lymph % (Auto) 15.3 L [place] % (Auto) 12.0 H Eos % (Auto) 1.1 Baso % (Auto) 0.6 Absolute Neuts (auto) 7.1 Absolute Lymphs (auto) 1.53 Total Counted Not Reportable Sodium 135 L Potassium 3.7 Chloride 101 Carbon Dioxide 25.0 Anion Gap 9 BUN 21 H Creatinine 0.55 L Estim Creat Clear Calc 128.08 Est GFR (MDRD) Af Amer 196 Est GFR (MDRD) Non-Af 162 BUN/Creatinine Ratio 38.4 H Glucose 86 Calcium 8.0 L Assessment/Plan Active and Suspected Problems Small and colonic ileus (Acute) Urine retention (Acute) Possible due to bladder outlet obstruction secondary to BPH and postoperative Postoperative ileus (Acute) Ileus appears to have resolve Advance to reg diet and anticipate DC
[2017-08-29 08:15] VITALS: O2SAT 93
[2017-08-29 10:02] VITALS: BP 129/88; PULSE 85; RESP 16; TEMP 36.7; O2SAT 100
[2017-08-29] MEDS: Enoxaparin 40 MG/0.4 ML Syringe SC (10:09)
[2017-08-29] MEDS: amLODIPine 2.5 MG Tablet PO (10:09)
[2017-08-29] MEDS: Polyethylene Glycol 3350 17 GM PACKET 8.5 GM PO (10:09)
[2017-08-29] MEDS: Finasteride 5 MG Tablet PO (10:10)
[2017-08-29] MEDS: Lisinopril 40 MG Tablet PO (10:11)
[2017-08-29 13:18] VITALS: BP 128/79; PULSE 90; RESP 18; TEMP 36.7; O2SAT 92
--- NOTE | 2017-08-29 13:30 | CASEMGMT ---
Social Work Note Call from [facility] stating that the pt could be accepted back to the [facility] tomorrow, 08/30. Confirmed with pt's parents that the discharge plan once medically stable would be to return to . No further needs identified at this time. SW to continue to follow and assist with discharge planning. Plan: for continued therapy. RACHID LeeW
--- NOTE | 2017-08-29 15:31 | PCM.PN.HOSP ---
Patient Problems: Active and Suspected Problems Small and colonic ileus (Acute) Urine retention (Acute) Possible due to bladder outlet obstruction secondary to BPH and postoperative Postoperative ileus (Acute) Subjective: Feeling well. Tolerated breakfast today. Vitals/I&O's: Vital Signs Temp Pulse Resp BP Pulse Ox 36.7 C 90 18 128/79 H 92 08/29/17 13:18 08/29/17 13:18 08/29/17 13:18 08/29/17 13:18 08/29/17 13:18 Oxygen Flow Rate 2 Oxygen Delivery Method Room Air Weight: 63.4 kg Body Mass Index (BMI) 22.5 Intake and Output for Last 24 Hours 08/27/17 08/28/17 08/29/17 23:59 23:59 23:59 Intake Total 2437 / 2437 2336 / 2336 Output Total 2225 / 2225 2350 / 2350 Balance 212 / 212 -14 / -14 General: Alert, No apparent distress, - - A phasic. Afebrile. HEENT: Atraumatic, Normocephalic Neck: No Nodes, Thyroid Normal Size and Texture Lungs: Clear to auscultation, Normal air movement, No rhonchi, No wheeze Cardiovascular: Regular rate, Regular Rhythm, Normal S1, Normal S2, No murmurs Abdomen: Bowel Sounds Present, Soft, Non Tender, Non-Distended, No Hepato-splenomegaly, - - Catheter in place. Light hammad urine. Extremities: No edema, No Calf Tenderness Psych/Mental Status: Normal Affect, Appropriate Current Medications Acetaminophen (Tylenol) 500 mg PO Q8H PRN PRN PRN Reason: mild/mod pain or fever Amlodipine Besylate (Norvasc) 2.5 mg PO DAILY [facility] Last Admin: 08/29/17 10:09 Dose: 2.5 mg Clomipramine HCl (Anafranil) 100 mg PO QHS [facility] Last Admin: 08/28/17 22:00 Dose: 100 mg Enoxaparin Sodium (Lovenox) 40 mg SC DAILY@1000 [facility] Last Admin: 08/29/17 10:09 Dose: 40 mg Finasteride (Proscar) 5 mg PO DAILY [facility] Last Admin: 08/29/17 10:10 Dose: 5 mg Hydralazine HCl (Apresoline) 10 mg IV Q4H PRN PRN PRN Reason: SBP>170 mmhg Pantoprazole Sodium 40 mg/ (Sodium Chloride) 110 mls @ 330 mls/hr IV Q24 [facility] Last Admin: 08/29/17 10:17 Dose: 330 mls/hr Potassium Chloride/Sodium Chloride () 1,000 mls @ 30 mls/hr IV .[id number] [facility] Lisinopril (Zestril) 40 mg PO DAILY [facility] Last Admin: 08/29/17 10:11 Dose: 40 mg Lorazepam (Ativan) 2 mg IV Q4H PRN PRN PRN Reason: Seizure Ondansetron HCl (Zofran) 4 mg IV Q4H PRN PRN PRN Reason: NAUSEA Polyethylene Glycol (Miralax) 8.5 gm PO DAILY [facility] Last Admin: 08/29/17 10:09 Dose: 8.5 gm Promethazine HCl (Phenergan (Ll)) 12.5 mg IV Q6H PRN PRN PRN Reason: NAUSEA/VOMITING Senna/Docusate Sodium (Senokot-S, Anastacia-Colace) 2 tablet PO BID [facility] Last Admin: 08/29/17 10:10 Dose: Not Given Sodium Chloride () 5 - 30 ml IV UD PRN PRN Reason: SALINE FLUSH Last Admin: 08/27/17 18:47 Dose: 5 ml Tamsulosin HCl (Flomax) 0.8 mg PO DAILY@1730 [facility] Last Admin: 08/28/17 16:39 Dose: 0.8 mg Tramadol HCl (Ultram (G)) 50 mg PO Q6H PRN PRN PRN Reason: MODERATE PAIN (4-5/10) Tramadol HCl (Ultram (G)) 100 mg PO Q6H PRN PRN PRN Reason: severe pain Assessment/Plan Active and Suspected Problems Small and colonic ileus (Acute) Urine retention (Acute) Possible due to bladder outlet obstruction secondary to BPH and postoperative Postoperative ileus (Acute) 1. Ileus Resolved diet advanced 2. Urinary retention Likely due to BPH Remove catheter and check postvoid residual. Continue with finasteride and Flomax. Follow-up with Dr. Diehl as outpt. 3. Left femoral neck fracture Status post left direct anterior total hip replacement on the . Follow-up with Dr. Shay 4. DVT prophylaxis with Lovenox Plan is for the patient to be discharged back to rehab on the Discussed with patient's mother and caregiver at bedside. Code Visit Inpatient E&M: 33379 Subs Hosp L2
--- NOTE | 2017-08-29 15:37 | PN_ITS ---
Patient Problems: Active and Suspected Problems Small and colonic ileus (Acute) Urine retention (Acute) Possible due to bladder outlet obstruction secondary to BPH and postoperative Postoperative ileus (Acute) Subjective: Feeling well. Tolerated breakfast today. Vitals/I&O's: Vital Signs Temp Pulse Resp BP Pulse Ox 36.7 C 90 18 128/79 H 92 08/29/17 13:18 08/29/17 13:18 08/29/17 13:18 08/29/17 13:18 08/29/17 13:18 Oxygen Flow Rate 2 Oxygen Delivery Method Room Air Weight: 63.4 kg Body Mass Index (BMI) 22.5 Intake and Output for Last 24 Hours 08/27/17 08/28/17 08/29/17 23:59 23:59 23:59 Intake Total 2437 / 2437 2336 / 2336 Output Total 2225 / 2225 2350 / 2350 Balance 212 / 212 -14 / -14 General: Alert, No apparent distress, - - A phasic. Afebrile. HEENT: Atraumatic, Normocephalic Neck: No Nodes, Thyroid Normal Size and Texture Lungs: Clear to auscultation, Normal air movement, No rhonchi, No wheeze Cardiovascular: Regular rate, Regular Rhythm, Normal S1, Normal S2, No murmurs Abdomen: Bowel Sounds Present, Soft, Non Tender, Non-Distended, No Hepato- splenomegaly, - - Catheter in place. Light hammad urine. Extremities: No edema, No Calf Tenderness Psych/Mental Status: Normal Affect, Appropriate Current Medications Acetaminophen (Tylenol) 500 mg PO Q8H PRN PRN PRN Reason: mild/mod pain or fever Amlodipine Besylate (Norvasc) 2.5 mg PO DAILY [facility] Last Admin: 08/29/17 10:09 Dose: 2.5 mg Clomipramine HCl (Anafranil) 100 mg PO QHS [facility] Last Admin: 08/28/17 22:00 Dose: 100 mg Enoxaparin Sodium (Lovenox) 40 mg SC DAILY@1000 [facility] Last Admin: 08/29/17 10:09 Dose: 40 mg Finasteride (Proscar) 5 mg PO DAILY [facility] Last Admin: 08/29/17 10:10 Dose: 5 mg Hydralazine HCl (Apresoline) 10 mg IV Q4H PRN PRN PRN Reason: SBP>170 mmhg Pantoprazole Sodium 40 mg/ (Sodium Chloride) 110 mls @ 330 mls/hr IV Q24 [facility] Last Admin: 08/29/17 10:17 Dose: 330 mls/hr Potassium Chloride/Sodium Chloride () 1,000 mls @ 30 mls/hr IV .[id number] [facility] Lisinopril (Zestril) 40 mg PO DAILY [facility] Last Admin: 08/29/17 10:11 Dose: 40 mg Lorazepam (Ativan) 2 mg IV Q4H PRN PRN PRN Reason: Seizure Ondansetron HCl (Zofran) 4 mg IV Q4H PRN PRN PRN Reason: NAUSEA Polyethylene Glycol (Miralax) 8.5 gm PO DAILY [facility] Last Admin: 08/29/17 10:09 Dose: 8.5 gm Promethazine HCl (Phenergan (Ll)) 12.5 mg IV Q6H PRN PRN PRN Reason: NAUSEA/VOMITING Senna/Docusate Sodium (Senokot-S, Anastacia-Colace) 2 tablet PO BID [facility] Last Admin: 08/29/17 10:10 Dose: Not Given Sodium Chloride () 5 - 30 ml IV UD PRN PRN Reason: SALINE FLUSH Last Admin: 08/27/17 18:47 Dose: 5 ml Tamsulosin HCl (Flomax) 0.8 mg PO DAILY@1730 [facility] Last Admin: 08/28/17 16:39 Dose: 0.8 mg Tramadol HCl (Ultram (G)) 50 mg PO Q6H PRN PRN PRN Reason: MODERATE PAIN (4-5/10) Tramadol HCl (Ultram (G)) 100 mg PO Q6H PRN PRN PRN Reason: severe pain Assessment/Plan Active and Suspected Problems Small and colonic ileus (Acute) Urine retention (Acute) Possible due to bladder outlet obstruction secondary to BPH and postoperative Postoperative ileus (Acute) 1. Ileus Resolved diet advanced 2. Urinary retention Likely due to BPH Remove catheter and check postvoid residual. Continue with finasteride and Flomax. Follow-up with Dr. Diehl as outpt. 3. Left femoral neck fracture Status post left direct anterior total hip replacement on the . Follow-up with Dr. Shay 4. DVT prophylaxis with Lovenox Plan is for the patient to be discharged back to rehab on the Discussed with patient's mother and caregiver at bedside. Code Visit Inpatient E&M: 91563 Subs Hosp L2
[2017-08-29] MEDS: Tamsulosin HCl 0.4 MG Capsule 0.8 MG PO (17:09)
[2017-08-29 17:15] VITALS: BP 114/71; PULSE 79; RESP 16; TEMP 36.7; O2SAT 94
[2017-08-29 20:32] VITALS: BP 109/79; PULSE 82; RESP 16; TEMP 37.3; O2SAT 100
[2017-08-30 01:52] VITALS: BP 123/77; PULSE 86; RESP 16; TEMP 37.2; O2SAT 98
[2017-08-30] MEDS: Polyethylene Glycol 3350 17 GM PACKET 8.5 GM PO (09:53)
[2017-08-30] MEDS: Lisinopril 40 MG Tablet PO (09:53)
[2017-08-30] MEDS: Enoxaparin 40 MG/0.4 ML Syringe SC (09:53)
[2017-08-30] MEDS: Finasteride 5 MG Tablet PO (09:53)
[2017-08-30] MEDS: Pantoprazole Sodium 40 MG Tablet PO (09:53)
[2017-08-30] MEDS: amLODIPine 2.5 MG Tablet PO (09:53)
[2017-08-30 10:00] VITALS: BP 122/78; PULSE 82; RESP 16; TEMP 36.6; O2SAT 98
--- NOTE | 2017-08-30 10:27 | CASEMGMT ---
Social Work Note Pt stable for discharge this date according to attending physician. [facility] notified and pt to discharge this date. Plan: [facility] for continued therapy. Jinny Bentley, COMMODITIES MANAGER SECTION HAND HELPER
--- NOTE | 2017-08-30 11:03 | PCM.PN.HOSP ---
Patient Problems: Active and Suspected Problems Small and colonic ileus (Acute) Urine retention (Acute) Possible due to bladder outlet obstruction secondary to BPH and postoperative Postoperative ileus (Acute) Subjective: Patient had issues in regards to urinary retention. Required being straight cathed last night. Patient said that he voided though the nurse did not see anything this morning but patient was bladder scanned for 450 cc of urine. Vitals/I&O's: Vital Signs Temp Pulse Resp BP Pulse Ox 37.2 C 86 16 123/77 H 98 08/30/17 01:52 08/30/17 01:52 08/30/17 01:52 08/30/17 01:52 08/30/17 01:52 Oxygen Flow Rate 2 Oxygen Delivery Method Room Air Weight: 63.4 kg Body Mass Index (BMI) 22.5 Intake and Output for Last 24 Hours 08/28/17 08/29/17 08/30/17 23:59 23:59 23:59 Intake Total 2437 / 2437 2911 / 2911 Output Total 2225 / 2225 2825 / 2825 650 / 650 Balance 212 / 212 86 / 86 -650 / -650 General: Alert, - - Sepsis eye contact. Mumbles yes and no to questions appropriately. HEENT: Atraumatic, Normocephalic Abdomen: Bowel Sounds Present, Soft, - - Suprapubic tenderness. Bladder not palpable. Extremities: No edema, No Calf Tenderness Psych/Mental Status: Normal Affect, Appropriate Current Medications Acetaminophen (Tylenol) 500 mg PO Q8H PRN PRN PRN Reason: mild/mod pain or fever Amlodipine Besylate (Norvasc) 2.5 mg PO DAILY [facility] Last Admin: 08/30/17 09:53 Dose: 2.5 mg Clomipramine HCl (Anafranil) 100 mg PO QHS [facility] Last Admin: 08/29/17 21:13 Dose: 100 mg Enoxaparin Sodium (Lovenox) 40 mg SC DAILY@1000 [facility] Last Admin: 08/30/17 09:53 Dose: 40 mg Finasteride (Proscar) 5 mg PO DAILY [facility] Last Admin: 08/30/17 09:53 Dose: 5 mg Hydralazine HCl (Apresoline) 10 mg IV Q4H PRN PRN PRN Reason: SBP>170 mmhg Potassium Chloride/Sodium Chloride () 1,000 mls @ 30 mls/hr IV .[id number] [facility] Last Admin: 08/30/17 06:04 Dose: 30 mls/hr Lisinopril (Zestril) 40 mg PO DAILY [facility] Last Admin: 08/30/17 09:53 Dose: 40 mg Lorazepam (Ativan) 2 mg IV Q4H PRN PRN PRN Reason: Seizure Ondansetron HCl (Zofran) 4 mg IV Q4H PRN PRN PRN Reason: NAUSEA Pantoprazole Sodium (Protonix) 40 mg PO DAILY [facility] Last Admin: 08/30/17 09:53 Dose: 40 mg Polyethylene Glycol (Miralax) 8.5 gm PO DAILY [facility] Last Admin: 08/30/17 09:53 Dose: 8.5 gm Promethazine HCl (Phenergan (Ll)) 12.5 mg IV Q6H PRN PRN PRN Reason: NAUSEA/VOMITING Senna/Docusate Sodium (Senokot-S, Anastacia-Colace) 2 tablet PO BID [facility] Last Admin: 08/30/17 09:54 Dose: Not Given Sodium Chloride () 5 - 30 ml IV UD PRN PRN Reason: SALINE FLUSH Last Admin: 08/27/17 18:47 Dose: 5 ml Tamsulosin HCl (Flomax) 0.8 mg PO DAILY@1730 [facility] Last Admin: 08/29/17 17:09 Dose: 0.8 mg Tramadol HCl (Ultram (G)) 50 mg PO Q6H PRN PRN PRN Reason: MODERATE PAIN (4-5/10) Tramadol HCl (Ultram (G)) 100 mg PO Q6H PRN PRN PRN Reason: severe pain Assessment/Plan Active and Suspected Problems Small and colonic ileus (Acute) Urine retention (Acute) Possible due to bladder outlet obstruction secondary to BPH and postoperative Postoperative ileus (Acute) 1. Ileus Resolved diet advanced 2. Urinary retention Likely due to BPH Patient still with urinary retention after the catheter has been removed. We will replace Sims catheter. Continue with finasteride and Flomax. Follow-up with Dr. Diehl as outpt. 3. Left femoral neck fracture Status post left direct anterior total hip replacement on the . Follow-up with Dr. Shay 4. DVT prophylaxis with Lovenox Discharge to rehab today. Discussed with patient's mother and caregiver at bedside.
--- NOTE | 2017-08-30 11:07 | PN_ITS ---
Patient Problems: Active and Suspected Problems Small and colonic ileus (Acute) Urine retention (Acute) Possible due to bladder outlet obstruction secondary to BPH and postoperative Postoperative ileus (Acute) Subjective: Patient had issues in regards to urinary retention. Required being straight cathed last night. Patient said that he voided though the nurse did not see anything this morning but patient was bladder scanned for 450 cc of urine. Vitals/I&O's: Vital Signs Temp Pulse Resp BP Pulse Ox 37.2 C 86 16 123/77 H 98 08/30/17 01:52 08/30/17 01:52 08/30/17 01:52 08/30/17 01:52 08/30/17 01:52 Oxygen Flow Rate 2 Oxygen Delivery Method Room Air Weight: 63.4 kg Body Mass Index (BMI) 22.5 Intake and Output for Last 24 Hours 08/28/17 08/29/17 08/30/17 23:59 23:59 23:59 Intake Total 2437 / 2437 2911 / 2911 Output Total 2225 / 2225 2825 / 2825 650 / 650 Balance 212 / 212 86 / 86 -650 / -650 General: Alert, - - Sepsis eye contact. Mumbles yes and no to questions appropriately. HEENT: Atraumatic, Normocephalic Abdomen: Bowel Sounds Present, Soft, - - Suprapubic tenderness. Bladder not palpable. Extremities: No edema, No Calf Tenderness Psych/Mental Status: Normal Affect, Appropriate Current Medications Acetaminophen (Tylenol) 500 mg PO Q8H PRN PRN PRN Reason: mild/mod pain or fever Amlodipine Besylate (Norvasc) 2.5 mg PO DAILY [facility] Last Admin: 08/30/17 09:53 Dose: 2.5 mg Clomipramine HCl (Anafranil) 100 mg PO QHS [facility] Last Admin: 08/29/17 21:13 Dose: 100 mg Enoxaparin Sodium (Lovenox) 40 mg SC DAILY@1000 [facility] Last Admin: 08/30/17 09:53 Dose: 40 mg Finasteride (Proscar) 5 mg PO DAILY [facility] Last Admin: 08/30/17 09:53 Dose: 5 mg Hydralazine HCl (Apresoline) 10 mg IV Q4H PRN PRN PRN Reason: SBP>170 mmhg Potassium Chloride/Sodium Chloride () 1,000 mls @ 30 mls/hr IV .[id number] [facility] Last Admin: 08/30/17 06:04 Dose: 30 mls/hr Lisinopril (Zestril) 40 mg PO DAILY [facility] Last Admin: 08/30/17 09:53 Dose: 40 mg Lorazepam (Ativan) 2 mg IV Q4H PRN PRN PRN Reason: Seizure Ondansetron HCl (Zofran) 4 mg IV Q4H PRN PRN PRN Reason: NAUSEA Pantoprazole Sodium (Protonix) 40 mg PO DAILY [facility] Last Admin: 08/30/17 09:53 Dose: 40 mg Polyethylene Glycol (Miralax) 8.5 gm PO DAILY [facility] Last Admin: 08/30/17 09:53 Dose: 8.5 gm Promethazine HCl (Phenergan (Ll)) 12.5 mg IV Q6H PRN PRN PRN Reason: NAUSEA/VOMITING Senna/Docusate Sodium (Senokot-S, Anastacia-Colace) 2 tablet PO BID [facility] Last Admin: 08/30/17 09:54 Dose: Not Given Sodium Chloride () 5 - 30 ml IV UD PRN PRN Reason: SALINE FLUSH Last Admin: 08/27/17 18:47 Dose: 5 ml Tamsulosin HCl (Flomax) 0.8 mg PO DAILY@1730 [facility] Last Admin: 08/29/17 17:09 Dose: 0.8 mg Tramadol HCl (Ultram (G)) 50 mg PO Q6H PRN PRN PRN Reason: MODERATE PAIN (4-5/10) Tramadol HCl (Ultram (G)) 100 mg PO Q6H PRN PRN PRN Reason: severe pain Assessment/Plan Active and Suspected Problems Small and colonic ileus (Acute) Urine retention (Acute) Possible due to bladder outlet obstruction secondary to BPH and postoperative Postoperative ileus (Acute) 1. Ileus Resolved diet advanced 2. Urinary retention Likely due to BPH Patient still with urinary retention after the catheter has been removed. We will replace Sims catheter. Continue with finasteride and Flomax. Follow-up with Dr. Diehl as outpt. 3. Left femoral neck fracture Status post left direct anterior total hip replacement on the . Follow-up with Dr. Shay 4. DVT prophylaxis with Lovenox Discharge to rehab today. Discussed with patient's mother and caregiver at bedside.
--- NOTE | 2017-08-30 11:09 | PCM.DC ---
- Discharge Diagnoses Current Active Problems: Current Active and Chronic Problems Small and colonic ileus (Acute) Urine retention (Acute) Possible due to bladder outlet obstruction secondary to BPH and postoperative Postoperative ileus (Acute) You will use the following diet at home:: No restrictions Your food should be the consistency of: Regular Discharge Activity: Return to Normal Activity Weight Bearing Status: Weight bearing as tolerated Keep extremity elevated above heart level: Left Leg Call your doctor if your incision/area has: Continuous Slow Oozing, Increased Pain/ Swelling, Increased Redness Call your doctor if you observe: Fever of 101 or Higher, Shortness of breath, - - Worsening abdominal pain. Allergies/Adverse Reactions: Allergies No Known Allergies Allergy (Verified 08/24/17 20:55) Medications to take at Discharge Cholecalciferol (Vitamin D3) [Vitamin D3] 5,000 unit PO DAILY 12/29/14 Clomipramine HCl 100 mg PO QHS 12/29/14 Docusate Calcium 240 mg PO DAILY 12/29/14 Lisinopril [Zestril] 40 mg PO DAILY 12/29/14 Multivit-Min/FA/Lycopene/Lut [Centrum Silver Tablet] 1 each PO DAILY 12/29/14 [place]-3 Fatty Acids/Fish Oil [Fish Oil 1,000 mg Capsule] 2 each PO DAILY 12/29/14 Polyethylene Glycol 3350 [Miralax] 8.5 gm PO DAILY 12/29/14 Amlodipine [Norvasc] 2.5 mg PO DAILY 03/02/16 Tamsulosin HCl [Flomax] 0.8 mg PO DAILY 08/24/17 Acetaminophen [Tylenol] 500 mg PO Q8H PRN PRN 08/26/17 Senna/Docusate Sodium [Senokot-S] 2 tablet PO BID 08/26/17 Famotidine 20 mg PO 08/27/17 Finasteride [Proscar] 5 mg PO DAILY 08/27/17 Rivaroxaban [Xarelto] 10 mg PO DAILY@0600 #0 08/30/17 Primary Care Physician: Henrry Mcallister MD [Primary Care Provider] - Please Follow Up With: Alex Diehl MD When: 2 weeks Please Follow Up With: Chemo Shay MD When: 2 weeks Proposed Discharge Date: 08/30/17
--- NOTE | 2017-08-30 11:13 | PCM.DC.SUM ---
Discharge Date and Diagnosis - Problem List Patient Problems: Active and Suspected Problems Urinary retention (Acute) Ileus (Acute) Date of Admission: 08/27/17 Date of Discharge: 08/30/17 - Primary Discharge Diagnosis Active and Suspected Problems Urinary retention (Acute) Ileus (Acute) Small and colonic ileus (Acute) Urine retention (Acute) Possible due to bladder outlet obstruction secondary to BPH and postoperative Postoperative ileus (Acute) - Secondary Discharge Diagnosis Chronic Problems BPH (benign prostatic hyperplasia) (Chronic) HTN (hypertension) (Chronic) HLD (hyperlipidemia) (Chronic) Seizure disorder (Chronic) GERD (gastroesophageal reflux disease) (Chronic) Autism (Chronic) Debility (Chronic) Hospital Course and Treatment Imaging Results: Clinical Impression(s) from Imaging Studies KUB X-Ray 08/27/17 16:09 IMPRESSION: NG tube with tip and side-port in the stomach. Gaseous dilated small and large bowel. Electronically Signed: Branden Villeda DO at 17:33 EST Tel , Service support , KUB X-Ray 08/27/17 18:48 IMPRESSION: 1. Satisfactory position of enteric tube extending to the stomach. Persistent diffuse large and small bowel ileus. Distal obstruction is felt to be less likely. Electronically Signed: Tomer Awan MD at 21:44 EST , Service support , KUB X-Ray 08/28/17 00:09 IMPRESSION: 1. Enteric tube tip appears to be within the stomach. 2. Unchanged appearance of large amount of bowel gas. Electronically Signed: Lianne Tellez MD at 1:47 EST , Service support , Abdomen X-Ray 08/28/17 05:00 IMPRESSION: Large amount of bowel gas, similar to previous study. Electronically Signed: Lianne Tellez MD at 5:43 EST , Service support , Andrez Stearns Operations: None Procedures: None Summary of Care Provided: The patient is a 62 year old M who suffered a hip fracture previously and was sent to rehab. In rehab, patient presented with abdominal distention and discomfort. On patient was found to have a diffusely gaseous distention bowel loops throughout the abdomen pelvis. [place] to be an ileus. Patient had an NG placed. Patient was seen by general surgery. Patient did improve and NG was removed the patient's diet was advanced. Patient has continued to do well. Is unclear if there is any direct correlation with the patient's surgery or not but patient really had an ileus days after his surgery. Patient is doing well. Patient's course was comp gated by urinary retention. Catheter was placed and then removed the patient still continued to have urinary retention. Patient is on finasteride as well as tamsulosin prior. Patient will continue with catheter and follow-up with his urologist as outpatient to see if the catheter could be removed. No further workup is necessary for the patient's ileus at this time. [] Discharge Diet: No Restrictions Discharge Activity: Return to Normal Activity Weight Bearing Status: Weight bearing as tolerated Keep extremity elevated above heart level: Left Leg Call your doctor if your incision/area has: Continuous Slow Oozing, Increased Pain/ Swelling, Increased Redness Call your doctor if you observe: Fever of 101 or Higher, Shortness of breath, - - Worsening abdominal pain. Home Medications: Medications to take at Discharge Cholecalciferol (Vitamin D3) [Vitamin D3] 5,000 unit PO DAILY 12/29/14 Clomipramine HCl 100 mg PO QHS 12/29/14 Docusate Calcium 240 mg PO DAILY 12/29/14 Lisinopril [Zestril] 40 mg PO DAILY 12/29/14 Multivit-Min/FA/Lycopene/Lut [Centrum Silver Tablet] 1 each PO DAILY 12/29/14 [place]-3 Fatty Acids/Fish Oil [Fish Oil 1,000 mg Capsule] 2 each PO DAILY 12/29/14 Polyethylene Glycol 3350 [Miralax] 8.5 gm PO DAILY 12/29/14 Amlodipine [Norvasc] 2.5 mg PO DAILY 03/02/16 Tamsulosin HCl [Flomax] 0.8 mg PO DAILY 08/24/17 Acetaminophen [Tylenol] 500 mg PO Q8H PRN PRN 08/26/17 Senna/Docusate Sodium [Senokot-S] 2 tablet PO BID 08/26/17 Famotidine 20 mg PO 08/27/17 Finasteride [Proscar] 5 mg PO DAILY 08/27/17 Rivaroxaban [Xarelto] 10 mg PO DAILY@0600 #0 08/30/17 Primary Care Physician: Henrry Mcallister MD [Primary Care Provider] - Please Follow Up With: Alex Diehl MD When: 2 weeks Please Follow Up With: Chemo Shay MD When: 2 weeks Disposition: Inpt Rehab Unit/Facility Minutes spent on discharge:: 32 Patient Condition:: Fair Meaningful Use Info Meaningful Use Diagnoses (Choose all that apply): None applicable Code Visit Inpatient E&M: 80507 Disch Hosp
--- NOTE | 2017-08-30 11:18 | DS.PCM_ITS ---
Discharge Date and Diagnosis - Problem List Patient Problems: Active and Suspected Problems Urinary retention (Acute) Ileus (Acute) Date of Admission: 08/27/17 Date of Discharge: 08/30/17 - Primary Discharge Diagnosis Active and Suspected Problems Urinary retention (Acute) Ileus (Acute) Small and colonic ileus (Acute) Urine retention (Acute) Possible due to bladder outlet obstruction secondary to BPH and postoperative Postoperative ileus (Acute) - Secondary Discharge Diagnosis Chronic Problems BPH (benign prostatic hyperplasia) (Chronic) HTN (hypertension) (Chronic) HLD (hyperlipidemia) (Chronic) Seizure disorder (Chronic) GERD (gastroesophageal reflux disease) (Chronic) Autism (Chronic) Debility (Chronic) Hospital Course and Treatment Imaging Results: Clinical Impression(s) from Imaging Studies KUB X-Ray 08/27/17 16:09 IMPRESSION: NG tube with tip and side-port in the stomach. Gaseous dilated small and large bowel. Electronically Signed: Branden Villeda DO at 17:33 EST Tel , Service support , KUB X-Ray 08/27/17 18:48 IMPRESSION: 1. Satisfactory position of enteric tube extending to the stomach. Persistent diffuse large and small bowel ileus. Distal obstruction is felt to be less likely. Electronically Signed: Tomer Awan MD at 21:44 EST , Service support , KUB X-Ray 08/28/17 00:09 IMPRESSION: 1. Enteric tube tip appears to be within the stomach. 2. Unchanged appearance of large amount of bowel gas. Electronically Signed: Lianne Tellez MD at 1:47 EST , Service support , Abdomen X-Ray 08/28/17 05:00 IMPRESSION: Large amount of bowel gas, similar to previous study. Electronically Signed: Lianne Tellez MD at 5:43 EST , Service support , Andrez Stearns Operations: None Procedures: None Summary of Care Provided: The patient is a 62 year old M who suffered a hip fracture previously and was sent to rehab. In rehab, patient presented with abdominal distention and discomfort. On patient was found to have a diffusely gaseous distention bowel loops throughout the abdomen pelvis. [place] to be an ileus. Patient had an NG placed. Patient was seen by general surgery. Patient did improve and NG was removed the patient's diet was advanced. Patient has continued to do well. Is unclear if there is any direct correlation with the patient's surgery or not but patient really had an ileus days after his surgery. Patient is doing well. Patient's course was comp gated by urinary retention. Catheter was placed and then removed the patient still continued to have urinary retention. Patient is on finasteride as well as tamsulosin prior. Patient will continue with catheter and follow-up with his urologist as outpatient to see if the catheter could be removed. No further workup is necessary for the patient's ileus at this time. [] Discharge Diet: No Restrictions Discharge Activity: Return to Normal Activity Weight Bearing Status: Weight bearing as tolerated Keep extremity elevated above heart level: Left Leg Call your doctor if your incision/area has: Continuous Slow Oozing, Increased Pain/ Swelling, Increased Redness Call your doctor if you observe: Fever of 101 or Higher, Shortness of breath, - - Worsening abdominal pain. Home Medications: Medications to take at Discharge Cholecalciferol (Vitamin D3) [Vitamin D3] 5,000 unit PO DAILY 12/29/14 Clomipramine HCl 100 mg PO QHS 12/29/14 Docusate Calcium 240 mg PO DAILY 12/29/14 Lisinopril [Zestril] 40 mg PO DAILY 12/29/14 Multivit-Min/FA/Lycopene/Lut [Centrum Silver Tablet] 1 each PO DAILY 12/29/14 [place]-3 Fatty Acids/Fish Oil [Fish Oil 1,000 mg Capsule] 2 each PO DAILY Polyethylene Glycol 3350 [Miralax] 8.5 gm PO DAILY 12/29/14 Amlodipine [Norvasc] 2.5 mg PO DAILY 03/02/16 Tamsulosin HCl [Flomax] 0.8 mg PO DAILY 08/24/17 Acetaminophen [Tylenol] 500 mg PO Q8H PRN PRN 08/26/17 Senna/Docusate Sodium [Senokot-S] 2 tablet PO BID 08/26/17 Famotidine 20 mg PO 08/27/17 Finasteride [Proscar] 5 mg PO DAILY 08/27/17 Rivaroxaban [Xarelto] 10 mg PO DAILY@0600 #0 08/30/17 Primary Care Physician: Henrry Mcallister MD [Primary Care Provider] - Please Follow Up With: Alex Diehl MD When: 2 weeks Please Follow Up With: Chemo Shay MD When: 2 weeks Disposition: Inpt Rehab Unit/Facility Minutes spent on discharge:: 32 Patient Condition:: Fair Meaningful Use Info Meaningful Use Diagnoses (Choose all that apply): None applicable Code Visit Inpatient E&M: 80309 Disch Hosp
[2017-08-30 11:41] VITALS: O2SAT 96
== END 2017-08-30 15:54 | DRG 394 ==
PROVIDERS: Admitting Provider Internal Medicine; Family Provider Family Medicine; PCP Family Medicine
DX: K91.89 Other postprocedural complications and disorders of digestive system (principal); K56.7 Ileus, unspecified; F84.0 Autistic disorder; Z96.642 Presence of left artificial hip joint; I10 Essential (primary) hypertension; Z79.899 Other long term (current) drug therapy; N40.1 Benign prostatic hyperplasia with lower urinary tract symptoms; R33.8 Other retention of urine
CPT/HCPCS: 36415; 74018; 74019; 80048; 80053; 83735; 85025; 97110; 97116; 97162; 97166; 97530; A4216

== ENCOUNTER 2017-08-30 16:02 | Inpatient (IN) | payer MEDICARE, MEDICAID, SELFPAY ==
--- NOTE | 2017-08-30 16:31 | HP.PCM.COS_ITS ---
History of Present Illness Date of Admission: 08/30/17 Chief Complaint: Left Total Hip Replacement The patient is a 62 year old male who was admitted to the rehab unit for rehabilitation after sustaining a left hip fracture, after a mechanical fall at his intermediate. He has a PMH of HTN, HLD, Autism, OCD, GERD, Remote h/o seizures not on AEDs, He is Non verbal at baseline, he does follow commands. Per the patients family he does not have frequent falls at baseline, he does not use a cane or walker to ambulate, he may need some assistance with his ADLs , and there is a ramp at the intermediate to get into and there are steps in the house but there is no requirement to use the steps and they can be avoided altogether if they need to. He was admitted to the Rehab unit previously but was transferred to the medical floor on 08/27/17, on the night of 08/26/17, the patient developed acute abdominal pain with severe distention the patient was seen by Dr. Webber who obtained a KUB which showed distention of the small bowel and colon, thought to be due to possible ileus secondary, was placed on NGT with suction for decompression, and given fleet enema, with some relief, continued to be symptomatic the morning of 08/27/17, he was then transferred to [facility] inpatient for further surgical evaluation and management for acute abdominal distention. He lives in a intermediate, was previously functional and is admitted to the rehab unit in order to restore his previous level of functional independence. Past Medical History Past Medical History (Chronic Problems): Chronic Problems BPH (benign prostatic hyperplasia) (Chronic) HTN (hypertension) (Chronic) HLD (hyperlipidemia) (Chronic) Seizure disorder (Chronic) GERD (gastroesophageal reflux disease) (Chronic) Autism (Chronic) Debility (Chronic) Allergies No Known Allergies Allergy (Verified 08/24/17 20:55) Home Medications: Ambulatory Orders Medication Instructions Recorded Cholecalciferol (Vitamin D3) 5,000 unit PO DAILY 12/29/14 [Vitamin D3] Clomipramine HCl 100 mg PO QHS 12/29/14 Docusate Calcium 240 mg PO DAILY 12/29/14 Lisinopril [Zestril] 40 mg PO DAILY 12/29/14 Multivit-Min/FA/Lycopene/Lut 1 each PO DAILY 12/29/14 [Centrum Silver Tablet] [place]-3 Fatty Acids/Fish Oil [Fish 2 each PO DAILY 12/29/14 Oil 1,000 mg Capsule] Polyethylene Glycol 3350 [Miralax] 8.5 gm PO DAILY 12/29/14 Amlodipine [Norvasc] 2.5 mg PO DAILY 03/02/16 Tamsulosin HCl [Flomax] 0.8 mg PO DAILY 08/24/17 Acetaminophen [Tylenol] 500 mg PO Q8H PRN PRN 08/26/17 Senna/Docusate Sodium [Senokot-S] 2 tablet PO BID 08/26/17 Famotidine 20 mg PO DAILY 08/27/17 Finasteride [Proscar] 5 mg PO DAILY 08/27/17 Rivaroxaban [Xarelto] 10 mg PO DAILY@0600 #0 08/30/17 Surgical History: appendectomy Psychiatric History: Anxiety, - - OCD tendencies. Lives: - - Lives in a shelter Smoking Status: Never smoker Tobacco Use: Non-smoker Alcohol: None Drugs: None Review of Systems Constitutional: Denies: Chills, Fever, Weight Change HEENT: Denies: Head Aches, Sinus Congestion, Sinus Drainage Cardiovascular: Denies: Chest Pain, Palpitations Respiratory: Denies: Cough, Shortness of breath at rest, Sputum production Gastrointestinal: Denies: Abdominal Pain, Nausea, Vomiting Genitourinary: Denies: Dysuria Musculoskeletal: Denies: Joint Pain, Joint Tenderness Skin: Denies: Rash, Wounds Neurological: Denies: Numbness, Tingling, Focal weakness Psychiatric: Denies: Anxiety, Depression, Homicidal Ideations, Suicidal Ideations Hematologic/ Lymphatic: Denies: Easy Bruising, Easy Bleeding VTE Information - Inpt Only VTE Present on Admission: No VTE Mechan Device Prophylaxis: SCD's, Knee High TYRELL Hose VTE Pharm Prophylaxis ordered?: Yes Patient Problems: Active and Suspected Problems Urinary retention (Acute) Ileus (Acute) - Physical Exam General: Alert, Oriented x3, Cooperative HEENT: Atraumatic, PERRLA, EOMI, Normocephalic Neck: Supple, No JVD, Negative Carotid Bruits Lungs: Clear to auscultation, Normal air movement Cardiovascular: Regular rate, No murmurs Abdomen: Bowel Sounds Present, Soft, Non Tender Extremities: No edema, Capillary Refill Less than 3 Seconds Skin: No rashes, No breakdown Musculoskeletal: No Tenderness to Palpation of Joints or Extremities Neurological: Cranial nerves II-XII grossly intact Psych/Mental Status: Normal Affect, Appropriate Assessment/Plan Active and Suspected Problems Urinary retention (Acute) Ileus (Acute) Debility s/p left hip hip replacement. Goal of rehab is mormon of functional independence. Plan -PT for gait stability -OT for ADLs -Analgesics PRN for pain -Bowel protocol -Left hip replacement-further management per orthopedics recommendation. -Autism, Psychiatry issues and OCD- continue Anafranil 100 mg PO q hs -HTN-continue home medications Amlodipine and Lisinopril. Hold if SBP < 100 mmHg -HLD- not on any medication. Diet and life style modification. Medical management as outpatient per PCP, will defer to PCP. -Seizures- remote history, not on any AEDs -GERD-on Famotidine -BPH- continue Flomax -GI/DVT prophylaxis -On Xarelto per ortho for DVT prophylaxis -Fall precautions -Seizure precautions. -Follow up with orthopedics in 2 weeks as outpatient.
[2017-08-30 20:17] VITALS: O2SAT 94
[2017-08-30 20:54] VITALS: BP 148/92; PULSE 90; RESP 18; TEMP 36.7; O2SAT 98
[2017-08-30 21:10] VITALS: BP 144/86; PULSE 81; RESP 18; TEMP 36.8; O2SAT 98
[2017-08-30] MEDS: Senna/Docusate Sodium 1 Tablet 2 TABLET PO (21:13)
[2017-08-30] MEDS: Acetaminophen 500 MG Tablet PO (21:17)
[2017-08-31 06:05] LABS: Absolute Lymphocyte Count 1.48 X10^3/ul (0.83-4.51); Absolute Neutrophil Count 4.4 X10^3/uL (2.0-7.7); Basophil# 0.11 X10^3/uL; Basophil% 1.5 % (0-1); Eosinophil# 0.16 X10^3/uL; Eosinophils% 2.1 % (0-5); Hematocrit 22.9 % (40-54); Hemoglobin 7.7 g/dl (13.0-16.5); Lymphocyte # 1.48 X10^3/ul (4.0); Lymphocyte % 19.9 % (19-41); Mean Corp Hgb Conc 33.6 g/gl (32-36); Mean Corpuscular Hgb 31.6 pg (27.0-32.0); Mean Corpuscular Volume 93.9 fL (80-94); Mean Platelet Vol. 9.9 fl (6.2-12.0); Monocyte# 1.23 X10^3/uL; Monocyte% 16.5 % (0-10); Neutrophil # 4.44 X10^3/uL (2.7-7.7); Neutrophil % 59.6 % (47-70); Platelet Count 279 K/mm3 (150-450); RBC Distribution Width SD 42.2 fl (35.1-43.9); Red Blood Count 2.44 M/mm3 (4.6-6.2); White Blood Count 7.5 K/mm3 (4.4-11.0)
[2017-08-31 06:22] LABS: POSITIVE COUNT NO; POSITIVE DIFFERENTIAL NO; POSITIVE MORPHOLOGY NO
[2017-08-31 06:27] LABS: ALB/GLOB Ratio 0.6 RATIO (0.9-2.4); AST(SGOT) 16 U/L (15-37); Alanine Aminotransfer ALT/SGPT 19 U/L (12-78); Albumin, Serum 2.3 g/dL (3.4-5.0); Alkaline Phosphatase 64 U/L (45-117); Anion Gap 9 (5-15); BUN 13 mg/dL (7-18); BUN/Creat Ratio 23.6 RATIO (10-20); Calcium,Total 8.3 mg/dL (8.5-10.1); Chloride 104 mmol/L (98-107); Creatinine, Serum 0.55 mg/dL (0.70-1.30); EST Glomerular Filtration Rate 161 mL/min (>60); Est Glom Filt Rate - Afr Amer 195 mL/min (>60); Estimated Creatinine Clearance 120.95 ml/min; Globulin 3.9 g/dL (2.2-4.2); Glucose 86 mg/dL (70-110); Phosphorus 3.8 mg/dL (2.5-4.9); Potassium 3.6 mmol/L (3.5-5.1); Protein, Total 6.2 g/dL (6.4-8.2); Sodium Level 137 mmol/L (136-145)
[2017-08-31] MEDS: Rivaroxaban 10 MG Tablet PO (06:33)
[2017-08-31] MEDS: Acetaminophen 500 MG Tablet PO ×2 (06:40→21:04)
[2017-08-31] MEDS: Polyethylene Glycol 3350 17 GM PACKET 8.5 GM PO (08:25)
[2017-08-31] MEDS: Multivitamins,Ther W-Minerals Tablet 1 TABLET PO (08:26)
[2017-08-31] MEDS: Omega-3 Acid Ethyl Esters 1 GM Capsule 2 GM PO (08:26)
[2017-08-31] MEDS: Tamsulosin HCl 0.4 MG Capsule 0.8 MG PO (08:26)
[2017-08-31] MEDS: Famotidine 20 MG Tablet PO (08:27)
[2017-08-31] MEDS: amLODIPine 2.5 MG Tablet PO (08:27)
[2017-08-31 08:30] VITALS: O2SAT 98
[2017-08-31] MEDS: Finasteride 5 MG Tablet PO (08:30)
[2017-08-31] MEDS: Senna/Docusate Sodium 1 Tablet 2 TABLET PO ×2 (08:30→21:03)
[2017-08-31] MEDS: Lisinopril 40 MG Tablet PO (08:32)
[2017-08-31 08:39] VITALS: BP 131/80; PULSE 82; RESP 16; TEMP 36.7; O2SAT 95
--- NOTE | 2017-08-31 08:50 | NURSING ---
[employer] aware of labs.
--- NOTE | 2017-08-31 15:37 | PCM.PN.HOSP ---
Subjective: Is a 8-year-old white male who suffered a hip fracture and sent to rehab. While in rehab developed abdominal distention and subsequent found to have an ileus. NG was placed something removed as patient improved. Patient today is denying any complaints. States that he is eating. The patient is a very minimal in regards to his interaction overall. Vitals/I&O's: Vital Signs Temp Pulse Resp BP Pulse Ox 36.7 C 82 16 131/80 H 95 08/31/17 08:39 08/31/17 08:39 08/31/17 08:39 08/31/17 08:39 08/31/17 08:39 Oxygen Delivery Method Room Air Weight: 59.87 kg Body Mass Index (BMI) 20.0 Intake and Output for Last 24 Hours 08/29/17 08/30/17 08/31/17 23:59 23:59 23:59 Intake Total 480 / 480 1000 / 1000 Output Total 1025 / 1025 1625 / 1625 Balance -545 / -545 -625 / -625 General: Alert, Cooperative, No apparent distress HEENT: Atraumatic, Normocephalic Neck: No Nodes, Thyroid Normal Size and Texture Lungs: Clear to auscultation, Normal air movement, No rhonchi, No wheeze Cardiovascular: Regular rate, Regular Rhythm, Normal S1, Normal S2, No murmurs Abdomen: Bowel Sounds Present, Soft, Non Tender, No Hepato-splenomegaly, Distended Extremities: No edema, No Calf Tenderness Laboratory Results 08/31/17 05:45: WBC 7.5, RBC 2.44 L, Hgb 7.7 L, Hct 22.9 L, MCV 93.9, MCH 31.6, MCHC 33.6, RDW 13.0, RDW Differential 42.2, Plt Count 279, MPV 9.9, Immature Gran % (Auto) 0.400, Neut % (Auto) 59.6, Lymph % (Auto) 19.9, [place] % (Auto) 16.5 H, Eos % (Auto) 2.1, Baso % (Auto) 1.5 H, Absolute Neuts (auto) 4.4, Absolute Lymphs (auto) 1.48, Total Counted Not Reportable 08/31/17 05:45: Sodium 137, Potassium 3.6, Chloride 104, Carbon Dioxide 24.0, Anion Gap 9, BUN 13, Creatinine 0.55 L, Estim Creat Clear Calc 120.95, Est GFR (MDRD) Af Amer 195, Est GFR (MDRD) Non-Af 161, BUN/Creatinine Ratio 23.6 H, Glucose 86, Calcium 8.3 L, Phosphorus 3.8, Total Bilirubin 0.60, AST 16, ALT 19, Alkaline Phosphatase 64, Total Protein 6.2 L, Albumin 2.3 L, Globulin 3.9, Albumin/Globulin Ratio 0.6 L Current Medications Acetaminophen (Tylenol) 500 mg PO Q8H PRN PRN PRN Reason: mild/mod pain or fever Last Admin: 08/31/17 06:40 Dose: 500 mg Amlodipine Besylate (Norvasc) 2.5 mg PO DAILY [facility] Last Admin: 08/31/17 08:27 Dose: 2.5 mg Bisacodyl (Dulcolax) 10 mg RECTAL .PRN X 1 PRN PRN Reason: Constipation Calcium Carbonate (Os-Junior 500) [facility] Cholecalciferol (Vitamin D) 5,000 unit PO DAILY [facility] Last Admin: 08/31/17 08:28 Dose: 5,000 unit Clomipramine HCl (Anafranil) 100 mg PO QHS [facility] Last Admin: 08/30/17 21:13 Dose: 100 mg Docusate Calcium (Surfak) 240 mg PO DAILY [facility] Last Admin: 08/31/17 08:30 Dose: 240 mg Famotidine (Pepcid) 20 mg PO DAILY [facility] Last Admin: 08/31/17 08:27 Dose: 20 mg Finasteride (Proscar) 5 mg PO DAILY [facility] Last Admin: 08/31/17 08:30 Dose: 5 mg Lisinopril (Zestril) 40 mg PO DAILY [facility] Last Admin: 08/31/17 08:32 Dose: 40 mg Magnesium Hydroxide (Milk Of Magnesia) 30 ml PO .PRN X 1 PRN PRN Reason: Constipation Multivitamins/Minerals (Multivitamin With Minerals) [facility] Last Admin: 08/31/17 08:26 Dose: 1 tablet Aeoqk-5-Ipbh Ethyl Esters (Lovaza) 2 gm PO DAILY [facility] Last Admin: 08/31/17 08:26 Dose: 2 gm Polyethylene Glycol (Miralax) 8.5 gm PO DAILY [facility] Last Admin: 08/31/17 08:25 Dose: 8.5 gm Polysaccharide Iron Complex (Ferrex 150) [facility] Rivaroxaban (Xarelto) 10 mg PO DAILY@0600 [facility] Last Admin: 08/31/17 06:33 Dose: 10 mg Senna/Docusate Sodium (Senokot-S, Anastacia-Colace) 2 tablet PO BID [facility] Last Admin: 08/31/17 08:30 Dose: 2 tablet Tamsulosin HCl (Flomax) 0.8 mg PO DAILY [facility] Last Admin: 08/31/17 08:26 Dose: 0.8 mg Assessment/Plan 1. Ileus Resolved diet advanced 2. Urinary retention Likely due to BPH Patient still with urinary retention after the catheter has been removed. Sims catheter was removed during last hospitalization but had a replaced as patient still having urinary retention. Continue with finasteride and Flomax. Follow-up with Dr. Diehl as outpt. 3. Left femoral neck fracture Status post left direct anterior total hip replacement on the . Follow-up with Dr. Shay 4. DVT prophylaxis with Xarelto Code Visit Inpatient E&M: 92435 Subs Hosp L2
--- NOTE | 2017-08-31 17:10 | PCM.RU.PYE ---
Admission Information Status Changes from Prescreening?: No changes Identified Actual Problem List:: Falls, Pain, ALteration in Cmfrt, Cognitve Impr/Memory Loss, Bladder Incontinence, Mobility Impaired, Self Care Deficit, Ineffect.D/C Plan r/t Psy Potential Problem List:: DVT, Bleeding, Infection, UTI, Aspiration, Falls, Skin Integrity, Depression Risk of Complications DVT: LMWH, TYRELL Hose, Sequential Compression Device Bleeding: Monitor Lab Values, Nursing to Teach Precautions for anti-coagulation therapy., Wound, if applicable, to be assessed every shift., Stroke patients assessed for lethargy or change in status. Infection: Clinical Staff to Monitor for S/S of infection:, S/S of infection include fever, redness, warmth, etc. Urinary Tract Infection: Monitor for frequency, burning, discomfort, or incontinence., Nursing will obtain urine sample for urinalysis and C&S when ordered. Aspiration: Clinical staff will monitor for coughing, drooling, congestion., Speech will evaluate swallowing and dsyphasia., Nursing will monitor patient swallowing during meals. Falls: Patient will be evaluated for Fall Precautions, Patient will be placed on Fall Precautions as indicated per protocol. Skin Breakdown: Nursing will assess skin daily using assessment tool., Nursing will place on Skin Breakdown Precautions as indicated. Pain: Clinical staff will assess patient's pain level per protocol., Medications will be given, if needed, and the pain level reassessed., Other methods: Massage, distraction, decrease stimulus, etc. used PRN. Plan of Care Patient requires physician specializing in physical medicine and rehab oversight to provide close medical supervision of rehab issues including: Pain Management, Sleep Problems, Bowel and Bladder, Medical and co-morbidity Management, DVT prophylaxis, Rehabilitation Leadership, Coordination of treatment team Patient needs Physical Therapy: For a minimum of 1 hour, At least 5 out of 7 days Patient needs Physical Therapy to improve:: Mobility, Mobility, Mobility, Strengthening, Transfers, Stretching, ROM, Endurance, Stairs, Gait, Balance Patient needs Occupational Therapy: For a minimum of 1 hour, At least 5 out of 7 days Patient needs Occupational Therapy to improve ADL's incl.: Eating, Grooming, Bathing, Dressing, Toileting, Toilet transfers, Community Reintegration, Higher functioning activities, Household tasks, Adaptive Equipment, Splinting, Other activities as determined Patient requires speech therapy: For a minimum of 1 hour, At least 5 out of 7 days Patient requires speech therapy for: Swallowing, Cognition, Language Skills, Compensatory Strategies Patient requires 24/ Rehabilitation Nursing for: Pain Issues, Identifying and preventing risk factors, Monitoring and reporting current medical conditions, Assisting with ambulation, transfer, and all ADL's, Teaching patients about disease process and medications, Family teaching, Providing safe environment, Bowel and Bladder Issues, Skin integrity, Medication Management Patient needs Pole Truck Driver/ Case Management for: Discharge Planning, Arranging Home Equipment or Services, Family Interventions Patient needs Dietary and Nutrition Services for: Adequate Nutrition, Nutritional Supplements, Nutritional Education Goals Patient will remain: free from falls, or injury at time of discharge. Patient will perform bed mobility at: MOD I level of assist. Patient will complete transfers from bed to chair at: MOD I level of assist. Patient will ambulate: 100 feet, with MOD I assist, with LRD Patient will complete upper body dressing at: MOD I level of assist. Patient will complete lower body dressing at: MOD I level of assist. Patient will complete toileting at: MOD I level of assist. Patient will perform bathing at: MOD I level of assist. Patient will complete grooming at: MOD I level of assist. Patient will complete home management skills at: MOD I level of assist. Patient will achieve: 12 stairs, at MOD I assist Patient will have pain level of: of 3 or less Patient's skin will: remain intact, free from infection. Patient will receive: adequate nutrition. Discharge Planning Pt Prognosis for Sig. Practical Improv. w/in Reasonable Time: Good Anticipated D/C Destination: Home w/ family or friends Was Preadmission Assessment Accurate?: Yes
[2017-08-31] MEDS: Calcium (Elemental) 500 MG Tablet PO (17:17)
[2017-08-31 21:02] VITALS: BP 147/89; PULSE 90; RESP 16; TEMP 36.6; O2SAT 92
--- NOTE | 2017-09-01 02:52 | NURSING ---
REVIEWED AND AGREE WITH [employer] AND HANDOFF CHARTING.
[2017-09-01] MEDS: Acetaminophen 500 MG Tablet PO ×2 (05:23→21:00)
[2017-09-01] MEDS: Rivaroxaban 10 MG Tablet PO (05:45)
--- NOTE | 2017-09-01 07:32 | PCM.PN.BLA ---
Progress Note 62-year-old male who is in rehab for a broken hip, family and asked me to see him I did see him as an outpatient for urinary retention, chart reviewed continue with Flozurdo and and Proscar as currently done. Given his current situation I do not think any intervention such as a TURP would be advised as of yet I would want him to heal up completely. Agree with current management and he can follow-up with me as an outpatient after he is discharged.
[2017-09-01] MEDS: Polyethylene Glycol 3350 17 GM PACKET 8.5 GM PO (08:16)
[2017-09-01] MEDS: Senna/Docusate Sodium 1 Tablet 2 TABLET PO (08:16)
[2017-09-01] MEDS: Multivitamins,Ther W-Minerals Tablet 1 TABLET PO (08:17)
[2017-09-01] MEDS: Iron Polysaccharide Complex 150 MG CAPSULE PO (08:17)
[2017-09-01] MEDS: amLODIPine 2.5 MG Tablet PO (08:17)
[2017-09-01] MEDS: Omega-3 Acid Ethyl Esters 1 GM Capsule 2 GM PO (08:17)
[2017-09-01] MEDS: Finasteride 5 MG Tablet PO (08:20)
[2017-09-01] MEDS: Tamsulosin HCl 0.4 MG Capsule 0.8 MG PO (08:20)
[2017-09-01] MEDS: Calcium (Elemental) 500 MG Tablet PO ×2 (08:21→16:59)
[2017-09-01] MEDS: Famotidine 20 MG Tablet PO (08:21)
[2017-09-01] MEDS: Lisinopril 40 MG Tablet PO (08:22)
[2017-09-01 08:29] VITALS: BP 123/69; PULSE 83; RESP 17; TEMP 36.4; O2SAT 96
--- NOTE | 2017-09-01 12:27 | PN.NEURO_ITS ---
Subjective: Patient seen and examined. No issues over night. Tolerating therapy and doing very well, he is very cooperative. No issues with GI/. - Physical Exam General: Alert, Oriented x3, Cooperative HEENT: Atraumatic, PERRLA, EOMI, Normocephalic Neck: Supple, No JVD, Negative Carotid Bruits Lungs: Clear to auscultation, Normal air movement Cardiovascular: Regular rate, No murmurs Abdomen: Bowel Sounds Present, Soft, Non Tender Extremities: No edema, Capillary Refill Less than 3 Seconds Skin: No rashes, No breakdown Musculoskeletal: No Tenderness to Palpation of Joints or Extremities Neurological: Cranial nerves II-XII grossly intact Psych/Mental Status: Normal Affect, Appropriate Vital Signs Temp Pulse Resp BP Pulse Ox 97.5 F L 83 17 123/69 H 96 09/01/17 08:29 09/01/17 08:29 09/01/17 08:29 09/01/17 08:29 09/01/17 08:29 Oxygen Delivery Method Room Air Weight: 59.87 kg Body Mass Index (BMI) 20.0 Intake and Output for Last 24 Hours 08/30/17 08/31/17 09/01/17 23:59 23:59 23:59 Intake Total 480 / 480 1960 / 1960 880 / 880 Output Total 1025 / 1025 3500 / 3500 1300 / 1300 Balance -545 / -545 -1540 / -1540 -420 / -420 Active Medications Acetaminophen (Tylenol) 500 mg PO Q8H PRN PRN PRN Reason: mild/mod pain or fever Last Admin: 09/01/17 05:23 Dose: 500 mg Amlodipine Besylate (Norvasc) 2.5 mg PO DAILY [facility] Last Admin: 09/01/17 08:17 Dose: 2.5 mg Bisacodyl (Dulcolax) 10 mg RECTAL .PRN X 1 PRN PRN Reason: Constipation Calcium Carbonate (Os-Junior 500) 500 mg PO BIDCM [facility] Last Admin: 09/01/17 08:21 Dose: 500 mg Cholecalciferol (Vitamin D) 5,000 unit PO DAILY [facility] Last Admin: 09/01/17 08:17 Dose: 5,000 unit Clomipramine HCl (Anafranil) 100 mg PO QHS [facility] Last Admin: 08/31/17 21:03 Dose: 100 mg Docusate Calcium (Surfak) 240 mg PO DAILY [facility] Last Admin: 09/01/17 08:17 Dose: 240 mg Famotidine (Pepcid) 20 mg PO DAILY [facility] Last Admin: 09/01/17 08:21 Dose: 20 mg Finasteride (Proscar) 5 mg PO DAILY [facility] Last Admin: 09/01/17 08:20 Dose: 5 mg Lisinopril (Zestril) 40 mg PO DAILY [facility] Last Admin: 09/01/17 08:22 Dose: 40 mg Magnesium Hydroxide (Milk Of Magnesia) 30 ml PO .PRN X 1 PRN PRN Reason: Constipation Multivitamins/Minerals ([facility]) [facility] Last Admin: 09/01/17 08:17 Dose: 1 tablet Vunvy-8-Auiq Ethyl Esters (Lovaza) 2 gm PO DAILY [facility] Last Admin: 09/01/17 08:17 Dose: 2 gm Polyethylene Glycol (Miralax) 8.5 gm PO DAILY [facility] Last Admin: 09/01/17 08:16 Dose: 8.5 gm Polysaccharide Iron Complex (Ferrex 150) [facility] Last Admin: 09/01/17 08:17 Dose: 150 mg Rivaroxaban (Xarelto) 10 mg PO DAILY@0600 [facility] Last Admin: 09/01/17 05:45 Dose: 10 mg Senna/Docusate Sodium (Senokot-S, Anastacia-Colace) 2 tablet PO BID [facility] Last Admin: 09/01/17 08:16 Dose: 2 tablet Tamsulosin HCl (Flomax) 0.8 mg PO DAILY [facility] Last Admin: 09/01/17 08:20 Dose: 0.8 mg Assessment/Plan Debility s/p left hip hip replacement. Goal of rehab is religious of functional independence. Plan -PT for gait stability -OT for ADLs -Analgesics PRN for pain -Bowel protocol -Left hip replacement-further management per orthopedics recommendation. -Autism, Psychiatry issues and OCD- continue Anafranil 100 mg PO q hs -HTN-continue home medications Amlodipine and Lisinopril. Hold if SBP < 100 mmHg -HLD- not on any medication. Diet and life style modification. Medical management as outpatient per PCP, will defer to PCP. -Seizures- remote history, not on any AEDs -GERD-on Famotidine -BPH- continue Flomax -GI/DVT prophylaxis -On Xarelto per ortho for DVT prophylaxis -Fall precautions -Seizure precautions. -Follow up with orthopedics in 2 weeks as outpatient.
[2017-09-01 13:12] VITALS: O2SAT 97
[2017-09-01 21:04] VITALS: BP 133/85; PULSE 80; RESP 16; TEMP 36.7; O2SAT 93
[2017-09-02] MEDS: Rivaroxaban 10 MG Tablet PO (06:08)
[2017-09-02] MEDS: Acetaminophen 500 MG Tablet PO (06:10)
--- NOTE | 2017-09-02 06:13 | NURSING ---
reviewed and agreed with RN [facility] assessment and documentation.
[2017-09-02 08:51] VITALS: BP 116/69; PULSE 83; RESP 16; TEMP 36.5; O2SAT 95
[2017-09-02] MEDS: Polyethylene Glycol 3350 17 GM PACKET 8.5 GM PO (09:03)
[2017-09-02] MEDS: Omega-3 Acid Ethyl Esters 1 GM Capsule 2 GM PO (09:03)
[2017-09-02] MEDS: amLODIPine 2.5 MG Tablet PO (09:04)
[2017-09-02] MEDS: Iron Polysaccharide Complex 150 MG CAPSULE PO (09:04)
[2017-09-02] MEDS: Famotidine 20 MG Tablet PO (09:04)
[2017-09-02] MEDS: Tamsulosin HCl 0.4 MG Capsule 0.8 MG PO (09:04)
[2017-09-02] MEDS: Calcium (Elemental) 500 MG Tablet PO ×2 (09:04→18:51)
[2017-09-02] MEDS: Multivitamins,Ther W-Minerals Tablet 1 TABLET PO (09:05)
[2017-09-02] MEDS: Finasteride 5 MG Tablet PO (09:05)
[2017-09-02] MEDS: Senna/Docusate Sodium 1 Tablet 2 TABLET PO (09:05)
[2017-09-02] MEDS: Lisinopril 40 MG Tablet PO (10:43)
--- NOTE | 2017-09-02 13:58 | PCM.PN.NEU ---
Subjective: Patient seen and examined. No acute issues overnight. Tolerating therapy. Denies any shortness of breath or chest pains. No issues with GI/. - Physical Exam General: Alert, Oriented x3, Cooperative HEENT: Atraumatic, PERRLA, EOMI, Normocephalic Neck: Supple, No JVD, Negative Carotid Bruits Lungs: Clear to auscultation, Normal air movement Cardiovascular: Regular rate, No murmurs Abdomen: Bowel Sounds Present, Soft, Non Tender Extremities: No edema, Capillary Refill Less than 3 Seconds Skin: No rashes, No breakdown Musculoskeletal: No Tenderness to Palpation of Joints or Extremities Neurological: Cranial nerves II-XII grossly intact Psych/Mental Status: Normal Affect, Appropriate Vital Signs Temp Pulse Resp BP Pulse Ox 97.7 F L 83 16 116/69 95 09/02/17 08:51 09/02/17 08:51 09/02/17 08:51 09/02/17 08:51 09/02/17 08:51 Oxygen Delivery Method Room Air Weight: 59.87 kg Body Mass Index (BMI) 20.0 Intake and Output for Last 24 Hours 08/31/17 09/01/17 09/02/17 23:59 23:59 23:59 Intake Total 1960 / 1960 2270 / 2270 1050 / 1050 Output Total 3500 / 3500 2675 / 2675 1000 / 1000 Balance -1540 / -1540 -405 / -405 50 / 50 Active Medications Acetaminophen (Tylenol) 500 mg PO Q8H PRN PRN PRN Reason: mild/mod pain or fever Last Admin: 09/02/17 06:10 Dose: 500 mg Amlodipine Besylate (Norvasc) 2.5 mg PO DAILY [facility] Bisacodyl (Dulcolax) 10 mg RECTAL .PRN X 1 PRN PRN Reason: Constipation Calcium Carbonate (Os-Junior 500) 500 mg PO BIDCM [facility] Last Admin: 09/02/17 09:04 Dose: 500 mg Cholecalciferol (Vitamin D) 5,000 unit PO DAILY [facility] Last Admin: 09/02/17 09:05 Dose: 5,000 unit Clomipramine HCl (Anafranil) 100 mg PO QHS [facility] Last Admin: 09/01/17 20:59 Dose: 100 mg Docusate Calcium (Surfak) 240 mg PO DAILY [facility] Last Admin: 09/02/17 10:42 Dose: 240 mg Famotidine (Pepcid) 20 mg PO DAILY [facility] Last Admin: 09/02/17 09:04 Dose: 20 mg Fentanyl (Duragesic) 12 mcg TRANSDERM. Q3D [facility] Last Admin: 09/02/17 10:43 Dose: 12 mcg Finasteride (Proscar) 5 mg PO DAILY [facility] Last Admin: 09/02/17 09:05 Dose: 5 mg Lisinopril (Zestril) 40 mg PO DAILY [facility] Magnesium Hydroxide (Milk Of Magnesia) 30 ml PO .PRN X 1 PRN PRN Reason: Constipation Multivitamins/Minerals ([facility]it[facility] With Minerals) [facility] Last Admin: 09/02/17 09:05 Dose: 1 tablet Lhjxs-2-Vxsy Ethyl Esters (Lovaza) 2 gm PO DAILY [facility] Last Admin: 09/02/17 09:03 Dose: 2 gm Polyethylene Glycol (Miralax) 8.5 gm PO DAILY [facility] Last Admin: 09/02/17 09:03 Dose: 8.5 gm Polysaccharide Iron Complex (Ferrex 150) [facility] Last Admin: 09/02/17 09:04 Dose: 150 mg Rivaroxaban (Xarelto) 10 mg PO DAILY@0600 [facility] Last Admin: 09/02/17 06:08 Dose: 10 mg Senna/Docusate Sodium (Senokot-S, Anastacia-Colace) 2 tablet PO BID [facility] Last Admin: 09/02/17 09:05 Dose: 2 tablet Tamsulosin HCl (Flomax) 0.8 mg PO DAILY [facility] Last Admin: 09/02/17 09:04 Dose: 0.8 mg
--- NOTE | 2017-09-02 14:03 | PN.NEURO_ITS ---
Subjective: Patient seen and examined. No acute issues overnight. Tolerating therapy. Denies any shortness of breath or chest pains. No issues with GI/. - Physical Exam General: Alert, Oriented x3, Cooperative HEENT: Atraumatic, PERRLA, EOMI, Normocephalic Neck: Supple, No JVD, Negative Carotid Bruits Lungs: Clear to auscultation, Normal air movement Cardiovascular: Regular rate, No murmurs Abdomen: Bowel Sounds Present, Soft, Non Tender Extremities: No edema, Capillary Refill Less than 3 Seconds Skin: No rashes, No breakdown Musculoskeletal: No Tenderness to Palpation of Joints or Extremities Neurological: Cranial nerves II-XII grossly intact Psych/Mental Status: Normal Affect, Appropriate Vital Signs Temp Pulse Resp BP Pulse Ox 97.7 F L 83 16 116/69 95 09/02/17 08:51 09/02/17 08:51 09/02/17 08:51 09/02/17 08:51 09/02/17 08:51 Oxygen Delivery Method Room Air Weight: 59.87 kg Body Mass Index (BMI) 20.0 Intake and Output for Last 24 Hours 08/31/17 09/01/17 09/02/17 23:59 23:59 23:59 Intake Total 1960 / 1960 2270 / 2270 1050 / 1050 Output Total 3500 / 3500 2675 / 2675 1000 / 1000 Balance -1540 / -1540 -405 / -405 50 / 50 Active Medications Acetaminophen (Tylenol) 500 mg PO Q8H PRN PRN PRN Reason: mild/mod pain or fever Last Admin: 09/02/17 06:10 Dose: 500 mg Amlodipine Besylate (Norvasc) 2.5 mg PO DAILY [facility] Bisacodyl (Dulcolax) 10 mg RECTAL .PRN X 1 PRN PRN Reason: Constipation Calcium Carbonate (Os-Junior 500) 500 mg PO BIDCM [facility] Last Admin: 09/02/17 09:04 Dose: 500 mg Cholecalciferol (Vitamin D) 5,000 unit PO DAILY [facility] Last Admin: 09/02/17 09:05 Dose: 5,000 unit Clomipramine HCl (Anafranil) 100 mg PO QHS [facility] Last Admin: 09/01/17 20:59 Dose: 100 mg Docusate Calcium (Surfak) 240 mg PO DAILY [facility] Last Admin: 09/02/17 10:42 Dose: 240 mg Famotidine (Pepcid) 20 mg PO DAILY [facility] Last Admin: 09/02/17 09:04 Dose: 20 mg Fentanyl (Duragesic) 12 mcg TRANSDERM. Q3D [facility] Last Admin: 09/02/17 10:43 Dose: 12 mcg Finasteride (Proscar) 5 mg PO DAILY [facility] Last Admin: 09/02/17 09:05 Dose: 5 mg Lisinopril (Zestril) 40 mg PO DAILY [facility] Magnesium Hydroxide (Milk Of Magnesia) 30 ml PO .PRN X 1 PRN PRN Reason: Constipation Multivitamins/Minerals ([facility]ivitamin With Minerals) [facility] Last Admin: 09/02/17 09:05 Dose: 1 tablet Vmstd-5-Ghkt Ethyl Esters (Lovaza) 2 gm PO DAILY [facility] Last Admin: 09/02/17 09:03 Dose: 2 gm Polyethylene Glycol (Miralax) 8.5 gm PO DAILY [facility] Last Admin: 09/02/17 09:03 Dose: 8.5 gm Polysaccharide Iron Complex (Ferrex 150) [facility] Last Admin: 09/02/17 09:04 Dose: 150 mg Rivaroxaban (Xarelto) 10 mg PO DAILY@0600 [facility] Last Admin: 09/02/17 06:08 Dose: 10 mg Senna/Docusate Sodium (Senokot-S, Anastacia-Colace) 2 tablet PO BID [facility] Last Admin: 09/02/17 09:05 Dose: 2 tablet Tamsulosin HCl (Flomax) 0.8 mg PO DAILY [facility] Last Admin: 09/02/17 09:04 Dose: 0.8 mg
--- NOTE | 2017-09-02 15:49 | PN_ITS ---
Subjective: No new complaints. No leg pain. Tolerating PO. No abdominal pain. Vitals/I&O's: Vital Signs Temp Pulse Resp BP Pulse Ox 36.5 C L 83 16 116/69 95 09/02/17 08:51 09/02/17 08:51 09/02/17 08:51 09/02/17 08:51 09/02/17 08:51 Oxygen Delivery Method Room Air Weight: 59.87 kg Body Mass Index (BMI) 20.0 Intake and Output for Last 24 Hours 08/31/17 09/01/17 09/02/17 23:59 23:59 23:59 Intake Total 1960 / 1959 2270 / 2270 1050 / 1050 Output Total 3500 / 3500 2675 / 2675 2300 / 2300 Balance -1540 / -1540 -405 / -405 -1250 / -1250 General: Alert, Cooperative, No apparent distress HEENT: Atraumatic, Normocephalic Neck: No Nodes, Thyroid Normal Size and Texture Lungs: Clear to auscultation, Normal air movement, No rhonchi, No wheeze Cardiovascular: Regular rate, Regular Rhythm, Normal S1, Normal S2 Abdomen: Bowel Sounds Present, Soft, Non Tender, Non-Distended, No Hepato- splenomegaly Extremities: No edema, No Calf Tenderness Psych/Mental Status: Normal Affect, Appropriate Current Medications Acetaminophen (Tylenol) 500 mg PO Q8H PRN PRN PRN Reason: mild/mod pain or fever Last Admin: 09/02/17 06:10 Dose: 500 mg Amlodipine Besylate (Norvasc) 2.5 mg PO DAILY [facility] Bisacodyl (Dulcolax) 10 mg RECTAL .PRN X 1 PRN PRN Reason: Constipation Calcium Carbonate (Os-Junior 500) 500 mg PO BIDCM [facility] Last Admin: 09/02/17 09:04 Dose: 500 mg Cholecalciferol (Vitamin D) 5,000 unit PO DAILY [facility] Last Admin: 09/02/17 09:05 Dose: 5,000 unit Clomipramine HCl (Anafranil) 100 mg PO QHS [facility] Last Admin: 09/01/17 20:59 Dose: 100 mg Docusate Calcium (Surfak) 240 mg PO DAILY [facility] Last Admin: 09/02/17 10:42 Dose: 240 mg Famotidine (Pepcid) 20 mg PO DAILY [facility] Last Admin: 09/02/17 09:04 Dose: 20 mg Fentanyl (Duragesic) 12 mcg TRANSDERM. Q3D [facility] Last Admin: 09/02/17 10:43 Dose: 12 mcg Finasteride (Proscar) 5 mg PO DAILY [facility] Last Admin: 09/02/17 09:05 Dose: 5 mg Lisinopril (Zestril) 40 mg PO DAILY [facility] Magnesium Hydroxide (Milk Of Magnesia) 30 ml PO .PRN X 1 PRN PRN Reason: Constipation Multivitamins/Minerals (Multivitamin With Minerals) [facility] Last Admin: 09/02/17 09:05 Dose: 1 tablet Kjpll-5-Hilj Ethyl Esters (Lovaza) 2 gm PO DAILY [facility] Last Admin: 09/02/17 09:03 Dose: 2 gm Polyethylene Glycol (Miralax) 8.5 gm PO DAILY [facility] Last Admin: 09/02/17 09:03 Dose: 8.5 gm Polysaccharide Iron Complex (Ferrex 150) [facility] Last Admin: 09/02/17 09:04 Dose: 150 mg Rivaroxaban (Xarelto) 10 mg PO DAILY@0600 [facility] Last Admin: 09/02/17 06:08 Dose: 10 mg Senna/Docusate Sodium (Senokot-S, Anastacia-Colace) 2 tablet PO BID [facility] Last Admin: 09/02/17 15:04 Dose: Not Given Tamsulosin HCl (Flomax) 0.8 mg PO DAILY [facility] Last Admin: 09/02/17 09:04 Dose: 0.8 mg Assessment/Plan 1. Ileus Resolved diet advanced 2. Urinary retention Likely due to BPH Patient still with urinary retention after the catheter has been removed. Sims catheter was removed during last hospitalization but had a replaced as patient still having urinary retention. Continue with finasteride and Flomax. Follow-up with Dr. Diehl as outpt. 3. Left femoral neck fracture Status post left direct anterior total hip replacement on the . Follow-up with Dr. Shay 4. DVT prophylaxis with Xarelto Code Visit Inpatient E&M: 89744 Subs Hosp L2
[2017-09-02 21:20] VITALS: BP 122/76; PULSE 86; RESP 18; TEMP 36.6; O2SAT 97
--- NOTE | 2017-09-03 02:23 | NURSING ---
Reviewed and agree with TRAFFIC ANALYST Documentation
--- NOTE | 2017-09-03 02:26 | NURSING ---
Addendum entered by Karen Thompson 09/03/17 02:27: Bed alarm and PA reset Original Note: Pt set off alarm and bounded out of bed. Staff found pt getting up and took pt to toilet. Pt directed back to bed and staff repositioned pt in bed.
[2017-09-03] MEDS: Rivaroxaban 10 MG Tablet PO (06:42)
[2017-09-03 08:30] VITALS: BP 130/78; PULSE 80; RESP 18; TEMP 36.8; O2SAT 92
[2017-09-03] MEDS: Senna/Docusate Sodium 1 Tablet 2 TABLET PO ×2 (10:46→21:55)
[2017-09-03] MEDS: Tamsulosin HCl 0.4 MG Capsule 0.8 MG PO (10:46)
[2017-09-03] MEDS: Calcium (Elemental) 500 MG Tablet PO ×2 (10:46→16:27)
[2017-09-03] MEDS: Finasteride 5 MG Tablet PO (10:46)
[2017-09-03] MEDS: Lisinopril 40 MG Tablet PO (10:47)
[2017-09-03] MEDS: Iron Polysaccharide Complex 150 MG CAPSULE PO (10:47)
[2017-09-03] MEDS: amLODIPine 2.5 MG Tablet PO (10:48)
[2017-09-03] MEDS: Polyethylene Glycol 3350 17 GM PACKET 8.5 GM PO (10:49)
[2017-09-03] MEDS: Multivitamins,Ther W-Minerals Tablet 1 TABLET PO (10:50)
[2017-09-03] MEDS: Famotidine 20 MG Tablet PO (10:50)
[2017-09-03] MEDS: Omega-3 Acid Ethyl Esters 1 GM Capsule 2 GM PO (11:58)
[2017-09-03] MEDS: Acetaminophen 500 MG Tablet PO (16:30)
--- NOTE | 2017-09-03 17:00 | NURSING ---
Patient refused therapy several times today and did not want to get out of bed until 11am. Patient eventually completed his PT session but still refused OT. [employer] punch finisher reported that on Tuesday's he considers that his rest day and that is his home routine.
[2017-09-03 21:55] VITALS: BP 128/74; PULSE 84; RESP 18; TEMP 36.9; O2SAT 94
[2017-09-04] MEDS: Rivaroxaban 10 MG Tablet PO (06:29)
[2017-09-04 07:47] VITALS: BP 111/68; PULSE 90; RESP 16; TEMP 36.6; O2SAT 98
[2017-09-04] MEDS: Polyethylene Glycol 3350 17 GM PACKET 8.5 GM PO (07:54)
[2017-09-04] MEDS: Senna/Docusate Sodium 1 Tablet 2 TABLET PO (07:55)
[2017-09-04] MEDS: amLODIPine 2.5 MG Tablet PO (07:55)
[2017-09-04] MEDS: Calcium (Elemental) 500 MG Tablet PO ×2 (07:55→17:41)
[2017-09-04] MEDS: Lisinopril 40 MG Tablet PO (07:55)
[2017-09-04] MEDS: Famotidine 20 MG Tablet PO (07:55)
[2017-09-04] MEDS: Iron Polysaccharide Complex 150 MG CAPSULE PO (07:55)
[2017-09-04] MEDS: Multivitamins,Ther W-Minerals Tablet 1 TABLET PO (07:55)
[2017-09-04] MEDS: Finasteride 5 MG Tablet PO (07:55)
[2017-09-04] MEDS: Omega-3 Acid Ethyl Esters 1 GM Capsule 2 GM PO (07:55)
[2017-09-04] MEDS: Tamsulosin HCl 0.4 MG Capsule 0.8 MG PO (07:56)
--- NOTE | 2017-09-04 16:17 | NURSING ---
UP AND AMBULATED AROUND HALLS TODAY WITH WALKER AND CONTACT GUARD MULT TIMES.
[2017-09-04] MEDS: Acetaminophen 500 MG Tablet PO (19:17)
[2017-09-04 20:00] VITALS: PULSE 91; RESP 18; O2SAT 94
[2017-09-04 20:05] VITALS: BP 109/65; PULSE 91; RESP 18; TEMP 37.2; O2SAT 94
--- NOTE | 2017-09-05 00:35 | NURSING ---
REVIEWED AND AGREE WITH [facility]'S FIM AND HANDOFF CHARTING.
[2017-09-05] MEDS: Rivaroxaban 10 MG Tablet PO (05:12)
[2017-09-05 06:09] LABS: Hematocrit 26.7 % (40-54); Hemoglobin 8.5 g/dl (13.0-16.5); Mean Corp Hgb Conc 31.8 g/gl (32-36); Mean Corpuscular Hgb 30.6 pg (27.0-32.0); Mean Platelet Vol. 9.8 fl (6.2-12.0); Platelet Count 425 K/mm3 (150-450); RBC Distribution Width CV 15.1 % (11.6-14.6); RBC Distribution Width SD 51.4 fl (35.1-43.9); Red Blood Count 2.78 M/mm3 (4.6-6.2)
[2017-09-05 06:13] LABS: Scan Indicated on CBC? Y/N NO
[2017-09-05 08:13] VITALS: BP 100/59; PULSE 90; RESP 18; TEMP 36.7; O2SAT 96
[2017-09-05] MEDS: Omega-3 Acid Ethyl Esters 1 GM Capsule 2 GM PO (08:17)
[2017-09-05] MEDS: Calcium (Elemental) 500 MG Tablet PO ×2 (08:17→17:25)
[2017-09-05] MEDS: Finasteride 5 MG Tablet PO (08:17)
[2017-09-05] MEDS: Lisinopril 40 MG Tablet PO (08:17)
[2017-09-05] MEDS: amLODIPine 2.5 MG Tablet PO (08:17)
[2017-09-05] MEDS: Tamsulosin HCl 0.4 MG Capsule 0.8 MG PO (08:17)
[2017-09-05] MEDS: Famotidine 20 MG Tablet PO (08:17)
[2017-09-05] MEDS: Iron Polysaccharide Complex 150 MG CAPSULE PO (08:17)
[2017-09-05] MEDS: Multivitamins,Ther W-Minerals Tablet 1 TABLET PO (08:17)
[2017-09-05 10:30] LABS: Anion Gap 7 (5-15); BUN 24 mg/dL (7-18); BUN/Creat Ratio 37.3 RATIO (10-20); Calcium,Total 8.6 mg/dL (8.5-10.1); Chloride 103 mmol/L (98-107); Creatinine, Serum 0.64 mg/dL (0.70-1.30); EST Glomerular Filtration Rate 134 mL/min (>60); Est Glom Filt Rate - Afr Amer 163 mL/min (>60); Estimated Creatinine Clearance 103.94 ml/min; Glucose 97 mg/dL (70-110); Potassium 4.2 mmol/L (3.5-5.1); Sodium Level 137 mmol/L (136-145)
--- NOTE | 2017-09-05 13:29 | CASEMGMT ---
Team meeting held. Patient present as well as patient family. Patient has been approved 16 Medicare Days with a discharge on or before 09/15/17. Patient plans to discharge back to care home at time of discharge. Patient to continue with further care and treatment on the Inpatient Rehab Unit. No discharge date set at this time. Support given. Will continue to follow. Laverne ALEXANDER, TAG METER OPERATOR
--- NOTE | 2017-09-05 15:06 | PCM.PN.NEU ---
Subjective: Staffed in team meeting. Parents at bedside. Questions answered. With Physical therapy, he is able to ambulate about 400 feet with wheel walker. he is able to go up and down 15 steps at contact guard. He can go from sitting positions to a standing position at stand by assist. With Occupational therapy he is minimal assist to get in and out of the shower and to do personal care. With Nursing his Urine output is over 4,000cc in 24 hours, Na level was 137 on 08/31, a repeat today was again 137 will repeat in 3 days. Will continue to monitor I's and O's. WBC also trended up from 7.5 to 14.0, he is Afebrile, no SOB, Hip incision is C/D/I no redness or warmth to the area no swelling noted around the incision site. will recheck the WBC in three days. Will re-team on TuesdaySeptember 12, with discharge on September 15 if he remains stable. - Physical Exam General: Alert, Oriented x3, Cooperative HEENT: Atraumatic, PERRLA, EOMI, Normocephalic Neck: Supple, No JVD, Negative Carotid Bruits Lungs: Clear to auscultation, Normal air movement Cardiovascular: Regular rate, No murmurs Abdomen: Bowel Sounds Present, Soft, Non Tender Extremities: No edema, Capillary Refill Less than 3 Seconds Skin: No rashes, No breakdown Musculoskeletal: No Tenderness to Palpation of Joints or Extremities Neurological: Cranial nerves II-XII grossly intact Psych/Mental Status: Normal Affect, Appropriate Vital Signs Temp Pulse Resp BP Pulse Ox 98.0 F 90 18 100/59 L 96 09/05/17 08:13 09/05/17 08:13 09/05/17 08:13 09/05/17 08:13 09/05/17 08:13 Oxygen Delivery Method Room Air Weight: 59.87 kg Body Mass Index (BMI) 20.0 Intake and Output for Last 24 Hours 09/03/17 09/04/17 09/05/17 23:59 23:59 23:59 Intake Total 1380 / 1380 1800 / 1800 1020 / 1020 Output Total 1600 / 1600 4200 / 4200 1700 / 1700 Balance -220 / -220 -2400 / -2400 -680 / -680 Laboratory Tests Past 24 Hrs 09/05/17 09/05/17 05:19 05:19 WBC 14.0 H RBC 2.78 L Hgb 8.5 L Hct 26.7 L MCV 96.0 H MCH 30.6 MCHC 31.8 L RDW 15.1 H RDW Differential 51.4 H Plt Count 425 MPV 9.8 Sodium 137 Potassium 4.2 Chloride 103 Carbon Dioxide 27.0 Anion Gap 7 BUN 24 H Creatinine 0.64 L Estim Creat Clear Calc 103.94 Est GFR (MDRD) Af Amer 163 Est GFR (MDRD) Non-Af 134 BUN/Creatinine Ratio 37.3 H Glucose 97 Calcium 8.6 Active Medications Acetaminophen (Tylenol) 500 mg PO Q8H PRN PRN PRN Reason: mild/mod pain or fever Last Admin: 09/04/17 19:17 Dose: 500 mg Amlodipine Besylate (Norvasc) 2.5 mg PO DAILY [facility] Last Admin: 09/05/17 08:17 Dose: 2.5 mg Bisacodyl (Dulcolax) 10 mg RECTAL .PRN X 1 PRN PRN Reason: Constipation Calcium Carbonate (Os-Junior 500) [facility] Last Admin: 09/05/17 08:17 Dose: 500 mg Cholecalciferol (Vitamin D) 5,000 unit PO DAILY [facility] Last Admin: 09/05/17 08:17 Dose: 5,000 unit Clomipramine HCl (Anafranil) 100 mg PO QHS [facility] Last Admin: 09/04/17 20:01 Dose: 100 mg Docusate Calcium (Surfak) 240 mg PO DAILY [facility] Last Admin: 09/05/17 08:18 Dose: Not Given Famotidine (Pepcid) 20 mg PO DAILY [facility] Last Admin: 09/05/17 08:17 Dose: 20 mg Fentanyl (Duragesic) 12 mcg TRANSDERM. Q3D [facility] Last Admin: 09/05/17 08:19 Dose: 12 mcg Finasteride (Proscar) 5 mg PO DAILY [facility] Last Admin: 09/05/17 08:17 Dose: 5 mg Lisinopril (Zestril) 40 mg PO DAILY [facility] Last Admin: 09/05/17 08:17 Dose: 40 mg Magnesium Hydroxide (Milk Of Magnesia) 30 ml PO .PRN X 1 PRN PRN Reason: Constipation Multivitamins/Minerals (Multivitamin With Minerals) [facility] tablet [facility] Last Admin: 09/05/17 08:17 Dose: 1 tablet Sdlce-5-Kjbt Ethyl Esters (Lovaza) 2 gm PO DAILY [facility] Last Admin: 09/05/17 08:17 Dose: 2 gm Polyethylene Glycol (Miralax) 8.5 gm PO DAILY [facility] Last Admin: 09/05/17 08:18 Dose: Not Given Polysaccharide Iron Complex (Ferrex 150) [facility] Last Admin: 09/05/17 08:17 Dose: 150 mg Rivaroxaban (Xarelto) 10 mg PO DAILY@0600 [facility] Last Admin: 09/05/17 05:12 Dose: 10 mg Senna/Docusate Sodium (Senokot-S, Anastacia-Colace) 2 tablet PO BID [facility] Last Admin: 09/05/17 08:18 Dose: Not Given Tamsulosin HCl (Flomax) 0.8 mg PO DAILY [facility] Last Admin: 09/05/17 08:17 Dose: 0.8 mg Assessment/Plan Debility s/p left hip hip replacement. Goal of rehab is jehovah's witness of functional independence. Plan -PT for gait stability -OT for ADLs -Analgesics PRN for pain -Bowel protocol -Left hip replacement-further management per orthopedics recommendation. -Autism, Psychiatry issues and OCD- continue Anafranil 100 mg PO q hs -HTN-continue home medications Amlodipine and Lisinopril. Hold if SBP < 100 mmHg -HLD- not on any medication. Diet and life style modification. Medical management as outpatient per PCP, will defer to PCP. -Seizures- remote history, not on any AEDs -GERD-on Famotidine -BPH- continue Flomax -GI/DVT prophylaxis -On Xarelto per ortho for DVT prophylaxis -Fall precautions -Seizure precautions. -Follow up with orthopedics in 2 weeks as outpatient. - Check BMP in 3 days, to monitor NA levels - Monitor I's and O's - WBC trended up from 7.5 to 14.0 will recheck in 3 days, no S/S of infection, Afebrile, Incision site is C/D/I, no redness, warmth or swelling note around the incision site.
--- NOTE | 2017-09-05 15:16 | PN.NEURO_ITS ---
Subjective: Staffed in team meeting. Parents at bedside. Questions answered. With Physical therapy, he is able to ambulate about 400 feet with wheel walker. he is able to go up and down 15 steps at contact guard. He can go from sitting positions to a standing position at stand by assist. With Occupational therapy he is minimal assist to get in and out of the shower and to do personal care. With Nursing his Urine output is over 4,000cc in 24 hours, Na level was 137 on 08/31, a repeat today was again 137 will repeat in 3 days. Will continue to monitor I's and O's. WBC also trended up from 7.5 to 14.0, he is Afebrile, no SOB, Hip incision is C/D/I no redness or warmth to the area no swelling noted around the incision site. will recheck the WBC in three days. Will re-team on TuesdaySeptember 12, with discharge on September 15 if he remains stable. - Physical Exam General: Alert, Oriented x3, Cooperative HEENT: Atraumatic, PERRLA, EOMI, Normocephalic Neck: Supple, No JVD, Negative Carotid Bruits Lungs: Clear to auscultation, Normal air movement Cardiovascular: Regular rate, No murmurs Abdomen: Bowel Sounds Present, Soft, Non Tender Extremities: No edema, Capillary Refill Less than 3 Seconds Skin: No rashes, No breakdown Musculoskeletal: No Tenderness to Palpation of Joints or Extremities Neurological: Cranial nerves II-XII grossly intact Psych/Mental Status: Normal Affect, Appropriate Vital Signs Temp Pulse Resp BP Pulse Ox 98.0 F 90 18 100/59 L 96 09/05/17 08:13 09/05/17 08:13 09/05/17 08:13 09/05/17 08:13 09/05/17 08:13 Oxygen Delivery Method Room Air Weight: 59.87 kg Body Mass Index (BMI) 20.0 Intake and Output for Last 24 Hours 09/03/17 09/04/17 09/05/17 23:59 23:59 23:59 Intake Total 1380 / 1380 1800 / 1800 1020 / 1020 Output Total 1600 / 1600 4200 / 4200 1700 / 1700 Balance -220 / -220 -2400 / -2400 -680 / -680 Laboratory Tests Past 24 Hrs 09/05/17 09/05/17 05:19 05:19 WBC 14.0 H RBC 2.78 L Hgb 8.5 L Hct 26.7 L MCV 96.0 H MCH 30.6 MCHC 31.8 L RDW 15.1 H RDW Differential 51.4 H Plt Count 425 MPV 9.8 Sodium 137 Potassium 4.2 Chloride 103 Carbon Dioxide 27.0 Anion Gap 7 BUN 24 H Creatinine 0.64 L Estim Creat Clear Calc 103.94 Est GFR (MDRD) Af Amer 163 Est GFR (MDRD) Non-Af 134 BUN/Creatinine Ratio 37.3 H Glucose 97 Calcium 8.6 Active Medications Acetaminophen (Tylenol) 500 mg PO Q8H PRN PRN PRN Reason: mild/mod pain or fever Last Admin: 09/04/17 19:17 Dose: 500 mg Amlodipine Besylate (Norvasc) 2.5 mg PO DAILY [facility] Last Admin: 09/05/17 08:17 Dose: 2.5 mg Bisacodyl (Dulcolax) 10 mg RECTAL .PRN X 1 PRN PRN Reason: Constipation Calcium Carbon[facility] ([facility]Junior 500) [facility] Admin: 09/05/17 08:17 Dose: 500 mg Cholecalciferol (Vitamin D) 5,000 unit PO DAILY [facility] Last Admin: 09/05/17 08:17 Dose: 5,000 unit Clomipramine HCl (Anafranil) 100 mg PO QHS [facility] Last Admin: 09/04/17 20:01 Dose: 100 mg Docusate Calcium (Surfak) 240 mg PO DAILY [facility] Last Admin: 09/05/17 08:18 Dose: Not Given Famotidine (Pepcid) 20 mg PO DAILY [facility] Last Admin: 09/05/17 08:17 Dose: 20 mg Fentanyl (Duragesic) 12 mcg TRANSDERM. Q3D [facility] Last Admin: 09/05/17 08:19 Dose: 12 mcg Finasteride (Proscar) 5 mg PO DAILY [facility] Last Admin: 09/05/17 08:17 Dose: 5 mg Lisinopril (Zestril) 40 mg PO DAILY [facility] Last Admin: 09/05/17 08:17 Dose: 40 mg Magnesium Hydroxide (Milk Of Magnesia) 30 ml PO .PRN X 1 PRN PRN Reason: Constipation Multivitamins/Minerals ([facility]ivitamin With Minerals) [facility] Last Admin: 09/05/17 08:17 Dose: 1 tablet Ngyyv-[id number] Ethyl Esters (Lovaza) 2 gm PO DAILY [facility] Last Admin: 09/05/17 08:17 Dose: 2 gm Polyethylene Glycol (Miralax) 8.5 gm PO DAILY [facility] Last Admin: 09/05/17 08:18 Dose: Not Given Polysaccharide Iron Complex (Ferrex 150) [facility] Last Admin: 09/05/17 08:17 Dose: 150 mg Rivaroxaban (Xarelto) 10 mg PO DAILY@0600 [facility] Last Admin: 09/05/17 05:12 Dose: 10 mg Senna/Docusate Sodium (Senokot-S, Anastacia-Colace) 2 tablet PO BID [facility] Last Admin: 09/05/17 08:18 Dose: Not Given Tamsulosin HCl (Flomax) 0.8 mg PO DAILY [facility] Last Admin: 09/05/17 08:17 Dose: 0.8 mg Assessment/Plan Debility s/p left hip hip replacement. Goal of rehab is adventism of functional independence. Plan -PT for gait stability -OT for ADLs -Analgesics PRN for pain -Bowel protocol -Left hip replacement-further management per orthopedics recommendation. -Autism, Psychiatry issues and OCD- continue Anafranil 100 mg PO q hs -HTN-continue home medications Amlodipine and Lisinopril. Hold if SBP < 100 mmHg -HLD- not on any medication. Diet and life style modification. Medical management as outpatient per PCP, will defer to PCP. -Seizures- remote history, not on any AEDs -GERD-on Famotidine -BPH- continue Flomax -GI/DVT prophylaxis -On Xarelto per ortho for DVT prophylaxis -Fall precautions -Seizure precautions. -Follow up with orthopedics in 2 weeks as outpatient. - Check BMP in 3 days, to monitor NA levels - Monitor I's and O's - WBC trended up from 7.5 to 14.0 will recheck in 3 days, no S/S of infection, Afebrile, Incision site is C/D/I, no redness, warmth or swelling note around the incision site.
--- NOTE | 2017-09-05 16:24 | PCM.PN.HOSP ---
Subjective: Patient is a 62-year-old gentleman admitted with a left femoral neck fracture underwent direct anterior total hip replacement on 08/25/17 subsequently transferred to the inpatient rehab unit where patient is currently undergoing therapy stay complicated by ileus and urinary retention which has since resolved Objective: GENERAL: cooperative HEENT: Clear conjunctiva, NECK; supple, normal thyroid, CHEST: Diminished to auscultation bilaterally, HEART: Regular S1 S2, no audible murmurs ABDOMEN: soft, no normoactive bowel sounds, RECTAL: deferred EXTREMITIES: No edema, no clubbing, no cyanosis. [employer]: Awake, no lateralizing signs. Vitals/I&O's: Vital Signs Temp Pulse Resp BP Pulse Ox 98.0 F 90 18 100/59 L 96 09/05/17 08:13 09/05/17 08:13 09/05/17 08:13 09/05/17 08:13 09/05/17 08:13 Oxygen Delivery Method Room Air Weight: 59.87 kg Body Mass Index (BMI) 20.0 Intake and Output for Last 24 Hours 09/03/17 09/04/17 09/05/17 23:59 23:59 23:59 Intake Total 1380 / 1380 1800 / 1800 1020 / 1020 Output Total 1600 / 1600 4200 / 4200 1700 / 1700 Balance -220 / -220 -2400 / -2400 -680 / -680 Laboratory Results 09/05/17 05:19: WBC 14.0 H, RBC 2.78 L, Hgb 8.5 L, Hct 26.7 L, MCV 96.0 H, MCH 30.6, MCHC 31.8 L, RDW 15.1 H, RDW Differential 51.4 H, Plt Count 425, MPV 9.8 09/05/17 05:19: Sodium 137, Potassium 4.2, Chloride 103, Carbon Dioxide 27.0, Anion Gap 7, BUN 24 H, Creatinine 0.64 L, Estim Creat Clear Calc 103.94, Est GFR (MDRD) Af Amer 163, Est GFR (MDRD) Non-Af 134, BUN/Creatinine Ratio 37.3 H, Glucose 97, Calcium 8.6 Current Medications Acetaminophen (Tylenol) 500 mg PO Q8H PRN PRN PRN Reason: mild/mod pain or fever Last Admin: 09/04/17 19:17 Dose: 500 mg Amlodipine Besylate (Norvasc) 2.5 mg PO DAILY [facility] Last Admin: 09/05/17 08:17 Dose: 2.5 mg Bisacodyl (Dulcolax) 10 mg RECTAL .PRN X 1 PRN PRN Reason: Constipation [facility]ior 500) [facility] Last Admin: 09/05/17 08:17 Dose: 500 mg Cholecalciferol (Vitamin D) 5,000 unit PO DAILY [facility] Last Admin: 09/05/17 08:17 Dose: 5,000 unit Clomipramine HCl (Anafranil) 100 mg PO QHS [facility] Last Admin: 09/04/17 20:01 Dose: 100 mg Docusate Calcium (Surfak) 240 mg PO DAILY [facility] Last Admin: 09/05/17 08:18 Dose: Not Given Famotidine (Pepcid) 20 mg PO DAILY [facility] Last Admin: 09/05/17 08:17 Dose: 20 mg Fentanyl (Duragesic) 12 mcg TRANSDERM. Q3D [facility] Last Admin: 09/05/17 08:19 Dose: 12 mcg Finasteride (Proscar) 5 mg PO DAILY [facility] Last Admin: 09/05/17 08:17 Dose: 5 mg Lisinopril (Zestril) 40 mg PO DAILY [facility] Last Admin: 09/05/17 08:17 Dose: 40 mg Magnesium Hydroxide (Milk Of Magnesia) 30 ml PO .PRN X 1 PRN PRN Reason: Constipation Multivitamins/Minerals ([facility]ivitamin With Minerals) [facility] Last Admin: 09/05/17 08:17 Dose: 1 tablet Fpoye-0-Xwjx Ethyl Esters (Lovaza) 2 gm PO DAILY [facility] Last Admin: 09/05/17 08:17 Dose: 2 gm Polyethylene Glycol (Miralax) 8.5 gm PO DAILY [facility] Last Admin: 09/05/17 08:18 Dose: Not Given Polysaccharide Iron Complex (Ferrex 150) [facility] Last Admin: 09/05/17 08:17 Dose: 150 mg Rivaroxaban (Xarelto) 10 mg PO DAILY@0600 [facility] Last Admin: 09/05/17 05:12 Dose: 10 mg Senna/Docusate Sodium (Senokot-S, Anastacia-Colace) 2 tablet PO BID [facility] Last Admin: 09/05/17 08:18 Dose: Not Given Tamsulosin HCl (Flomax) 0.8 mg PO DAILY [facility] Last Admin: 09/05/17 08:17 Dose: 0.8 mg Assessment/Plan Patient is a 62-year-old gentleman admitted with a left femoral neck fracture underwent direct anterior total hip replacement on 08/25/17 subsequently transferred to the inpatient rehab unit where patient is currently undergoing therapy stay complicated by ileus and urinary retention which has since resolved 1. Left femoral neck fracture status post left direct anterior total hip replacement on 08/25/[address] Shay 2. BPH with obstruction (urinary retention) patient currently on finasteride and Flomax with 3. Ileus resolved 4. Hypertension-blood pressure controlled, home medications continued with dose adjustment as needed 5. DVT prophylaxis with Xarelto Code Visit Inpatient E&M: 29214 Subs Hosp L2
[2017-09-05 20:45] VITALS: BP 99/63; PULSE 85; PULSE 98; RESP 16; TEMP 36.7; O2SAT 94
[2017-09-05] MEDS: Senna/Docusate Sodium 1 Tablet 2 TABLET PO (21:28)
--- NOTE | 2017-09-06 02:16 | NURSING ---
Reviewed and agree with MANAGER ATHLETICS documentation.
[2017-09-06] MEDS: Rivaroxaban 10 MG Tablet PO (06:00)
[2017-09-06] MEDS: Iron Polysaccharide Complex 150 MG CAPSULE PO (07:39)
[2017-09-06] MEDS: Multivitamins,Ther W-Minerals Tablet 1 TABLET PO (07:40)
[2017-09-06] MEDS: Tamsulosin HCl 0.4 MG Capsule 0.8 MG PO (07:40)
[2017-09-06] MEDS: Calcium (Elemental) 500 MG Tablet PO ×2 (07:40→18:24)
[2017-09-06] MEDS: Omega-3 Acid Ethyl Esters 1 GM Capsule 2 GM PO (07:41)
[2017-09-06] MEDS: Finasteride 5 MG Tablet PO (07:41)
[2017-09-06] MEDS: Famotidine 20 MG Tablet PO (07:42)
[2017-09-06] MEDS: Senna/Docusate Sodium 1 Tablet 2 TABLET PO ×2 (07:42→19:58)
[2017-09-06 08:49] VITALS: BP 108/69; PULSE 94; RESP 16; TEMP 37.1; O2SAT 92
[2017-09-06] MEDS: Lisinopril 40 MG Tablet PO (09:19)
[2017-09-06] MEDS: amLODIPine 2.5 MG Tablet PO (09:19)
[2017-09-06] MEDS: Acetaminophen 500 MG Tablet PO ×2 (09:22→19:58)
--- NOTE | 2017-09-06 13:00 | NURSING ---
Patient received New order from Gia smith INSTALLATION TECH for UA C&S and new catheter placed in for specimen per this nurse and specimen obtained appropriately. Patient refused some therapy this AM and he did yesterday too per report and his mood has changed and he is more irritable. Patient denies any urinary symptoms but is aphasic due to autism and only says a few words. Urine in catheter tubing with sediment, mucous shreds, and is cloudy. Color yellow. WBC elevated per labs yesterday. Afebrile.
[2017-09-06 13:42] LABS: Bacteria 0 SEEN /hpf (None Seen); Mucous, Urine 0 SEEN /hpf (<or=2+)
[2017-09-06 13:45] LABS: Color, Urine Yellow (Yellow); Glucose, Dipstick Normal (Normal); Ketone-Dipstick Negative (Negative); Leukocyte Esterase-Dipstick 500 /ul (Negative); Nitrite-Dipstick Negative (Negative); Occult Blood-Urine 250 /ul (Negative); Protein-Dipstick 15 mg/dl (Negative); Urine Bilirubin Dipstick Negative (Negative); Urine Clarity Sl. Cloudy (Clear); Urine Urobilinogen Normal (Normal)
[2017-09-06 13:51] LABS: Red Blood Cells-Urine 25-50 SEEN /hpf (0-5); Squamous Epithelial Cells - UA 0-5 SEEN /hpf (0-5); White Blood Cells 25-50 SEEN /hpf (0-5)
--- NOTE | 2017-09-06 14:09 | PCM.PN.NEU ---
Subjective: Patient seen and examined. No acute events overnight. Patient still very lethargic, not wanting to participate in therapy. Urine is very Mucous and dark will send a urinalysis and culture. Patient has been refusing therapy over the last few days, he has not been able to do 3 hours of therapy over the last few days. Since he is Medicare he will have to be discharged tomorrow. - Physical Exam General: Alert, Oriented x3, Cooperative HEENT: Atraumatic, PERRLA, EOMI, Normocephalic Neck: Supple, No JVD, Negative Carotid Bruits Lungs: Clear to auscultation, Normal air movement Cardiovascular: Regular rate, No murmurs Abdomen: Bowel Sounds Present, Soft, Non Tender Extremities: No edema, Capillary Refill Less than 3 Seconds Skin: No rashes, No breakdown Musculoskeletal: No Tenderness to Palpation of Joints or Extremities Neurological: Cranial nerves II-XII grossly intact Psych/Mental Status: Normal Affect, Appropriate Vital Signs Temp Pulse Resp BP Pulse Ox 98.8 F 94 16 108/69 92 09/06/17 08:49 09/06/17 08:49 09/06/17 08:49 09/06/17 08:49 09/06/17 08:49 Oxygen Delivery Method Room Air Weight: 59.87 kg Body Mass Index (BMI) 20.0 Intake and Output for Last 24 Hours 09/04/17 09/05/17 09/06/17 23:59 23:59 23:59 Intake Total 1800 / 1800 1900 / 1900 600 / 600 Output Total 4200 / 4200 2600 / 2600 1750 / 1750 Balance -2400 / -2400 -700 / -700 -1150 / -1150 Laboratory Tests Past 24 Hrs 09/06/17 13:15 Urine Color Yellow Urine Clarity Sl. Cloudy Urine pH 6.0 Ur Specific [place] 1.010 Urine Protein 15 H Urine Glucose (UA) Normal Urine Ketones Negative Urine Occult Blood 250 H Urine Nitrite Negative Urine Bilirubin Negative Urine Urobilinogen Normal Ur Leukocyte Esterase 500 H Urine RBC 25-50 SEEN Urine WBC 25-50 SEEN Ur Squamous Epith Cells 0-5 SEEN Urine Bacteria 0 SEEN Urine Mucus 0 SEEN Active Medications Acetaminophen (Tylenol) 500 mg PO Q8H PRN PRN PRN Reason: mild/mod pain or fever Last Admin: 09/06/17 09:22 Dose: 500 mg Amlodipine Besylate (Norvasc) 2.5 mg PO DAILY [facility] Last Admin: 09/06/17 09:19 Dose: 2.5 mg Bisacodyl (Dulcolax) 10 mg RECTAL .PRN X 1 PRN PRN Reason: Constipation Calcium Carbonate ([facility]-Junior 500) [facility] Last Admin: 09/06/17 07:40 Dose: 500 mg Cholecalciferol (Vitamin D) 5,000 unit PO DAILY [facility] Last Admin: 09/06/17 07:40 Dose: 5,000 unit Ciprofloxacin HCl (Cipro) 500 mg PO BID [facility] Clomipramine HCl (Anafranil) 100 mg PO QHS [facility] Last Admin: 09/05/17 21:28 Dose: 100 mg Docusate Calcium (Surfak) 240 mg PO DAILY [facility] Last Admin: 09/06/17 07:41 Dose: 240 mg Famotidine (Pepcid) 20 mg PO DAILY [facility] Last Admin: 09/06/17 07:42 Dose: 20 mg Fentanyl (Duragesic) 12 mcg TRANSDERM. Q3D [facility] Last Admin: 09/05/17 08:19 Dose: 12 mcg Finasteride (Proscar) 5 mg PO DAILY [facility] Last Admin: 09/06/17 07:41 Dose: 5 mg Lisinopril (Zestril) 40 mg PO DAILY [facility] Last Admin: 09/06/17 09:19 Dose: 40 mg Magnesium Hydroxide (Milk Of Magnesia) 30 ml PO .PRN X 1 PRN PRN Reason: Constipation Multivitamins/Minerals (Multivitamin With Minerals) [facility] Last Admin: 09/06/17 07:40 Dose: 1 tablet Ixtcd-9-Lsqk Ethyl Esters (Lovaza) 2 gm PO DAILY [facility] Last Admin: 09/06/17 07:41 Dose: 2 gm Polyethylene Glycol (Miralax) 8.5 gm PO DAILY [facility] Last Admin: 09/06/17 09:27 Dose: Not Given Polysaccharide Iron Complex (Ferrex 150) [facility] Last Admin: 09/06/17 07:39 Dose: 150 mg Rivaroxaban (Xarelto) 10 mg PO DAILY@0600 [facility] Last Admin: 09/06/17 06:00 Dose: 10 mg Senna/Docusate Sodium (Senokot-S, Anastacia-Colace) 2 tablet PO BID [facility] Last Admin: 09/06/17 07:42 Dose: 2 tablet Tamsulosin HCl (Flomax) 0.8 mg PO DAILY [facility] Last Admin: 09/06/17 07:40 Dose: 0.8 mg Assessment/Plan Debility s/p left hip hip replacement. Goal of rehab is taoism of functional independence. Plan -PT for gait stability -OT for ADLs -Analgesics PRN for pain -Bowel protocol -Left hip replacement-further management per orthopedics recommendation. -Autism, Psychiatry issues and OCD- continue Anafranil 100 mg PO q hs -HTN-continue home medications Amlodipine and Lisinopril. Hold if SBP < 100 mmHg -HLD- not on any medication. Diet and life style modification. Medical management as outpatient per PCP, will defer to PCP. -Seizures- remote history, not on any AEDs -GERD-on Famotidine -BPH- continue Flomax -GI/DVT prophylaxis -On Xarelto per ortho for DVT prophylaxis -Fall precautions -Seizure precautions. -Follow up with orthopedics in 2 weeks as outpatient. - Check BMP in 3 days, to monitor NA levels - Monitor I's and O's - WBC trended up from 7.5 to 14.0 will recheck in 3 days, no S/S of infection, Afebrile, Incision site is C/D/I, no redness, warmth or swelling note around the incision site. - Possible UTI => Urinalysis and Culture sent, Urinalysis shows Leukocytosis started on Cipro 500mg BID x 7 days - Will be discharged tomorrow.
--- NOTE | 2017-09-06 14:24 | PN.NEURO_ITS ---
Subjective: Patient seen and examined. No acute events overnight. Patient still very lethargic, not wanting to participate in therapy. Urine is very Mucous and dark will send a urinalysis and culture. Patient has been refusing therapy over the last few days, he has not been able to do 3 hours of therapy over the last few days. Since he is Medicare he will have to be discharged tomorrow. - Physical Exam General: Alert, Oriented x3, Cooperative HEENT: Atraumatic, PERRLA, EOMI, Normocephalic Neck: Supple, No JVD, Negative Carotid Bruits Lungs: Clear to auscultation, Normal air movement Cardiovascular: Regular rate, No murmurs Abdomen: Bowel Sounds Present, Soft, Non Tender Extremities: No edema, Capillary Refill Less than 3 Seconds Skin: No rashes, No breakdown Musculoskeletal: No Tenderness to Palpation of Joints or Extremities Neurological: Cranial nerves II-XII grossly intact Psych/Mental Status: Normal Affect, Appropriate Vital Signs Temp Pulse Resp BP Pulse Ox 98.8 F 94 16 108/69 92 09/06/17 08:49 09/06/17 08:49 09/06/17 08:49 09/06/17 08:49 09/06/17 08:49 Oxygen Delivery Method Room Air Weight: 59.87 kg Body Mass Index (BMI) 20.0 Intake and Output for Last 24 Hours 09/04/17 09/05/17 09/06/17 23:59 23:59 23:59 Intake Total 1800 / 1800 1900 / 1900 600 / 600 Output Total 4200 / 4200 2600 / 2600 1750 / 1750 Balance -2400 / -2400 -700 / -700 -1150 / -1150 Laboratory Tests Past 24 Hrs 09/06/17 13:15 Urine Color Yellow Urine Clarity Sl. Cloudy Urine pH 6.0 Ur Specific [place] 1.010 Urine Protein 15 H Urine Glucose (UA) Normal Urine Ketones Negative Urine Occult Blood 250 H Urine Nitrite Negative Urine Bilirubin Negative Urine Urobilinogen Normal Ur Leukocyte Esterase 500 H Urine RBC 25-50 SEEN Urine WBC 25-50 SEEN Ur Squamous Epith Cells 0-5 SEEN Urine Bacteria 0 SEEN Urine Mucus 0 SEEN Active Medications Acetaminophen (Tylenol) 500 mg PO Q8H PRN PRN PRN Reason: mild/mod pain or fever Last Admin: 09/06/17 09:22 Dose: 500 mg Amlodipine Besylate (Norvasc) 2.5 mg PO DAILY [facility] Last Admin: 09/06/17 09:19 Dose: 2.5 mg Bisacodyl (Dulcolax) 10 mg RECTAL .PRN X 1 PRN PRN Reason: Constipation [facility]ior [facility] Last Admin: 09/06/17 07:40 Dose: 500 mg Cholecalciferol (Vitamin D) 5,000 unit PO DAILY [facility] Last Admin: 09/06/17 07:40 Dose: 5,000 unit Ciprofloxacin HCl (Cipro) 500 mg PO BID [facility] Clomipramine HCl (Anafranil) 100 mg PO QHS [facility] Last Admin: 09/05/17 21:28 Dose: 100 mg Docusate Calcium (Surfak) 240 mg PO DAILY [facility] Last Admin: 09/06/17 07:41 Dose: 240 mg Famotidine (Pepcid) 20 mg PO DAILY [facility] Last Admin: 09/06/17 07:42 Dose: 20 mg Fentanyl (Duragesic) 12 mcg TRANSDERM. Q3D [facility] Last Admin: 09/05/17 08:19 Dose: 12 mcg Finasteride (Proscar) 5 mg PO DAILY [facility] Last Admin: 09/06/17 07:41 Dose: 5 mg Lisinopril (Zestril) 40 mg PO DAILY [facility] Last Admin: 09/06/17 09:19 Dose: 40 mg Magnesium Hydroxide (Milk Of Magnesia) 30 ml PO .PRN X 1 PRN PRN Reason: Constipation Multivitamins/Minerals (Multivitamin With Minerals) [facility] Last Admin: 09/06/17 07:40 Dose: 1 tablet [id number] Ethyl Esters (Lovaza) 2 gm PO DAILY [facility] Last Admin: 09/06/17 07:41 Dose: 2 gm Polyethylene Glycol (Miralax) 8.5 gm PO DAILY [facility] Last Admin: 09/06/17 09:27 Dose: Not Given Polysaccharide Iron Complex (Ferrex 150) [facility] Last Admin: 09/06/17 07:39 Dose: 150 mg Rivaroxaban (Xarelto) 10 mg PO DAILY@0600 [facility] Last Admin: 09/06/17 06:00 Dose: 10 mg Senna/Docusate Sodium (Senokot-S, Anastacia-Colace) 2 tablet PO BID [facility] Last Admin: 09/06/17 07:42 Dose: 2 tablet Tamsulosin HCl (Flomax) 0.8 mg PO DAILY [facility] Last Admin: 09/06/17 07:40 Dose: 0.8 mg Assessment/Plan Debility s/p left hip hip replacement. Goal of rehab is mandaen of functional independence. Plan -PT for gait stability -OT for ADLs -Analgesics PRN for pain -Bowel protocol -Left hip replacement-further management per orthopedics recommendation. -Autism, Psychiatry issues and OCD- continue Anafranil 100 mg PO q hs -HTN-continue home medications Amlodipine and Lisinopril. Hold if SBP < 100 mmHg -HLD- not on any medication. Diet and life style modification. Medical management as outpatient per PCP, will defer to PCP. -Seizures- remote history, not on any AEDs -GERD-on Famotidine -BPH- continue Flomax -GI/DVT prophylaxis -On Xarelto per ortho for DVT prophylaxis -Fall precautions -Seizure precautions. -Follow up with orthopedics in 2 weeks as outpatient. - Check BMP in 3 days, to monitor NA levels - Monitor I's and O's - WBC trended up from 7.5 to 14.0 will recheck in 3 days, no S/S of infection, Afebrile, Incision site is C/D/I, no redness, warmth or swelling note around the incision site. - Possible UTI => Urinalysis and Culture sent, Urinalysis shows Leukocytosis started on Cipro 500mg BID x 7 days - Will be discharged tomorrow.
--- NOTE | 2017-09-06 16:40 | CASEMGMT ---
Social Work Telephone call from Nohemi, implementation project manager. Nohemi reporting that patient has not been participating fully in therapy for the past days, Medicare guidelines are that patient must participate in 3 hours of therapy 6 days week. Patient will need to discharge on 09/07/17 due to not meeting the criteria. Spoke with patient and patient manager lab, Alicia. Alicia voicing understanding about above information and plans to picker / packer patient on 09/07/17 for discharge back to the half-way setting. Alicia voicing a need for a walker to be set up, Alicia does not have a preference of [employer], [employer] to be utilized. Support given. Proposed discharge date: 09/07/17 Will continue to follow. PLAN: Discharge to half-way setting. Laverne ALEXANDER, BARBECUE COOK
[2017-09-06 19:30] VITALS: BP 109/70; PULSE 93; RESP 16; TEMP 36.9; O2SAT 91
[2017-09-06] MEDS: Ciprofloxacin 500 MG Tablet PO (19:58)
[2017-09-07] MEDS: Rivaroxaban 10 MG Tablet PO (05:44)
[2017-09-07] MEDS: Multivitamins,Ther W-Minerals Tablet 1 TABLET PO (08:11)
[2017-09-07] MEDS: amLODIPine 2.5 MG Tablet PO (08:11)
[2017-09-07] MEDS: Finasteride 5 MG Tablet PO (08:11)
[2017-09-07] MEDS: Omega-3 Acid Ethyl Esters 1 GM Capsule 2 GM PO (08:11)
[2017-09-07] MEDS: Calcium (Elemental) 500 MG Tablet PO ×2 (08:11→17:25)
[2017-09-07] MEDS: Senna/Docusate Sodium 1 Tablet 2 TABLET PO (08:11)
[2017-09-07] MEDS: Iron Polysaccharide Complex 150 MG CAPSULE PO (08:12)
[2017-09-07] MEDS: Tamsulosin HCl 0.4 MG Capsule 0.8 MG PO (08:14)
[2017-09-07] MEDS: Polyethylene Glycol 3350 17 GM PACKET 8.5 GM PO (08:15)
[2017-09-07] MEDS: Lisinopril 40 MG Tablet PO (08:16)
[2017-09-07] MEDS: Famotidine 20 MG Tablet PO (08:16)
--- NOTE | 2017-09-07 09:02 | CASEMGMT ---
Social Work Walker script faxed to [employer]. [facility] to deliver walker to patient room prior to discharge home. Proposed discharge date: 09/07/17 PLAN: Discharge back to longterm. Laverne ALEXANDER, COLD ROLL PACKER SHEET IRON
[2017-09-07] MEDS: Ciprofloxacin 500 MG Tablet PO ×2 (09:41→19:37)
--- NOTE | 2017-09-07 09:48 | PCM.RU.DC ---
Rehab Discharge Summary DATE OF ADMISSION: 08/30/17 DATE OF DISCHARGE: 09/07/17 - Rehab Diagnosis Total Hip replacement Discharge Diet: No Restrictions Discharge Activity: Return to Normal Activity - As tolerated, when cleared by Surgeon, May Shower, Use Walker, - - Do not soak in a Tub bath Return to work on:: 09/12/17 - If ok with Surgeon Weight Bearing Status: Weight bearing as tolerated Call your doctor if your incision/area has: Increased Pain/ Swelling, Increased Redness, Foul Smelling Discharge, Swelling at the incision site Call your doctor if you observe: Fever of 101 or Higher, Coldness, Increased Pain, Numbness or Tingling, Change in Color, Inability to urinate, Inability to have a bowel movement, Using more than one pad per hour, Shortness of breath, Dizziness, Fainting spells, Swelling in the ankles, Chest pain, Prolonged hiccoughing, Increased palpitations (irregular heartbeat), Calf discomfort, Uncontrolled pain Home Medications: Medications to take at Discharge Cholecalciferol (Vitamin D3) [Vitamin D3] 5,000 unit PO DAILY 12/29/14 Clomipramine HCl 100 mg PO QHS 12/29/14 Docusate Calcium 240 mg PO DAILY 12/29/14 Lisinopril [Zestril] 40 mg PO DAILY 12/29/14 Multivit-Min/FA/Lycopene/Lut [Centrum Silver Tablet] 1 each PO DAILY 12/29/14 [place]-3 Fatty Acids/Fish Oil [Fish Oil 1,000 mg Capsule] 2 each PO DAILY 12/29/14 Polyethylene Glycol 3350 [Miralax] 8.5 gm PO DAILY 12/29/14 Amlodipine [Norvasc] 2.5 mg PO DAILY 03/02/16 Tamsulosin HCl [Flomax] 0.8 mg PO DAILY 08/24/17 Famotidine 20 mg PO DAILY 08/27/17 Finasteride [Proscar] 5 mg PO DAILY 08/27/17 Acetaminophen [Tylenol] 500 mg PO Q8H PRN PRN tablet 09/07/17 Calcium (Elemental) [Os-Junior 500] 500 mg PO BIDCM tablet 09/07/17 Fentanyl [Duragesic] 12 mcg TRANSDERM. Q3D 6 Days #2 patch 09/07/17 Rivaroxaban [Xarelto] 10 mg PO DAILY@0600 19 Days #19 tab 09/07/17 Following Prescrptions Were Given to Patient: Fentanyl [Duragesic] 12 mcg TRANSDERM. Q3D 6 Days #2 patch Rivaroxaban [Xarelto] 10 mg PO DAILY@0600 19 Days #19 tab Primary Care Physician: Henrry Mcallister MD [Primary Care Provider] - Please Follow Up With: DR. Diehl Please Follow Up With: Chemo Shay MD Disposition: Home Minutes spent on discharge:: 40 Patient Condition:: Good Rehab Course The patient is a 62 year old male who was admitted to the rehab unit for rehabilitation after sustaining a left hip fracture, after a mechanical fall at his alf. He has a PMH of HTN, HLD, Autism, OCD, GERD, Remote h/o seizures not on AEDs, He is Non verbal at baseline, he does follow commands. Per the patients family he does not have frequent falls at baseline, he does not use a cane or walker to ambulate, he may need some assistance with his ADLs, and there is a ramp at the alf to get into and there are steps in the house but there is no requirement to use the steps and they can be avoided altogether if they need to. He was admitted to the Rehab unit previously but was transferred to the medical floor on 08/27/17, on the night of 08/26/17, the patient developed acute abdominal pain with severe distention the patient was seen by Dr. Webber who obtained a KUB which showed distention of the small bowel and colon, thought to be due to possible ileus secondary, was placed on NGT with suction for decompression, and given fleet enema, with some relief, continued to be symptomatic the morning of 08/27/17, he was then transferred to [facility] inpatient for further surgical evaluation and management for acute abdominal distention. With Physical therapy, he is able to ambulate about 400 feet with wheel walker. he is able to go up and down 15 steps at contact guard. He can go from sitting positions to a standing position at stand by assist. With Occupational therapy he is minimal assist to get in and out of the shower and to do personal care. With Nursing his Urine output is over 4,000cc in 24 hours, Na level was 137 on 08/31, a repeat today was again 137 will repeat in 3 days. Will continue to monitor I's and O's. WBC also trended up from 7.5 to 14.0, he is Afebrile, no SOB, Hip incision is C/D/I no redness or warmth to the area no swelling noted around the incision site. Urinalysis and culture was sent the patient has a UTI was started on Cipro 500mg BID, x 7 days, will follow up with his Urinologist in a week after discharge. Meaningful Use Info Meaningful Use Diagnoses (Choose all that apply): None applicable
--- NOTE | 2017-09-07 09:53 | DS.PCM_ITS ---
Rehab Discharge Summary DATE OF ADMISSION: 08/30/17 DATE OF DISCHARGE: 09/07/17 - Rehab Diagnosis Total Hip replacement Discharge Diet: No Restrictions Discharge Activity: Return to Normal Activity - As tolerated, when cleared by Surgeon, May Shower, Use Walker, - - Do not soak in a Tub bath Return to work on:: 09/12/17 - If ok with Surgeon Weight Bearing Status: Weight bearing as tolerated Call your doctor if your incision/area has: Increased Pain/ Swelling, Increased Redness, Foul Smelling Discharge, Swelling at the incision site Call your doctor if you observe: Fever of 101 or Higher, Coldness, Increased Pain, Numbness or Tingling, Change in Color, Inability to urinate, Inability to have a bowel movement, Using more than one pad per hour, Shortness of breath, Dizziness, Fainting spells, Swelling in the ankles, Chest pain, Prolonged hiccoughing, Increased palpitations (irregular heartbeat), Calf discomfort, Uncontrolled pain Home Medications: Medications to take at Discharge Cholecalciferol (Vitamin D3) [Vitamin D3] 5,000 unit PO DAILY 12/29/14 Clomipramine HCl 100 mg PO QHS 12/29/14 Docusate Calcium 240 mg PO DAILY 12/29/14 Lisinopril [Zestril] 40 mg PO DAILY 12/29/14 Multivit-Min/FA/Lycopene/Lut [Centrum Silver Tablet] 1 each PO DAILY 12/29/14 [place]-3 Fatty Acids/Fish Oil [Fish Oil 1,000 mg Capsule] 2 each PO DAILY Polyethylene Glycol 3350 [Miralax] 8.5 gm PO DAILY 12/29/14 Amlodipine [Norvasc] 2.5 mg PO DAILY 03/02/16 Tamsulosin HCl [Flomax] 0.8 mg PO DAILY 08/24/17 Famotidine 20 mg PO DAILY 08/27/17 Finasteride [Proscar] 5 mg PO DAILY 08/27/17 Acetaminophen [Tylenol] 500 mg PO Q8H PRN PRN tablet 09/07/17 Calcium (Elemental) [Os-Junior 500] 500 mg PO BIDCM tablet 09/07/17 Fentanyl [Duragesic] 12 mcg TRANSDERM. Q3D 6 Days #2 patch 09/07/17 Rivaroxaban [Xarelto] 10 mg PO DAILY@0600 19 Days #19 tab 09/07/17 Following Prescrptions Were Given to Patient: Fentanyl [Duragesic] 12 mcg TRANSDERM. Q3D 6 Days #2 patch Rivaroxaban [Xarelto] 10 mg PO DAILY@0600 19 Days #19 tab Primary Care Physician: Henrry Mcallister MD [Primary Care Provider] - Please Follow Up With: DR. Diehl Please Follow Up With: Chemo Shay MD Disposition: Home Minutes spent on discharge:: 40 Patient Condition:: Good Rehab Course The patient is a 62 year old male who was admitted to the rehab unit for rehabilitation after sustaining a left hip fracture, after a mechanical fall at his long term. He has a PMH of HTN, HLD, Autism, OCD, GERD, Remote h/o seizures not on AEDs, He is Non verbal at baseline, he does follow commands. Per the patients family he does not have frequent falls at baseline, he does not use a cane or walker to ambulate, he may need some assistance with his ADLs , and there is a ramp at the long term to get into and there are steps in the house but there is no requirement to use the steps and they can be avoided altogether if they need to. He was admitted to the Rehab unit previously but was transferred to the medical floor on 08/27/17, on the night of 08/26/17, the patient developed acute abdominal pain with severe distention the patient was seen by Dr. Webber who obtained a KUB which showed distention of the small bowel and colon, thought to be due to possible ileus secondary, was placed on NGT with suction for decompression, and given fleet enema, with some relief, continued to be symptomatic the morning of 08/27/17, he was then transferred to [facility] inpatient for further surgical evaluation and management for acute abdominal distention. With Physical therapy, he is able to ambulate about 400 feet with wheel walker. he is able to go up and down 15 steps at contact guard. He can go from sitting positions to a standing position at stand by assist. With Occupational therapy he is minimal assist to get in and out of the shower and to do personal care. With Nursing his Urine output is over 4,000cc in 24 hours, Na level was 137 on 08/31, a repeat today was again 137 will repeat in 3 days. Will continue to monitor I's and O's. WBC also trended up from 7.5 to 14.0, he is Afebrile, no SOB, Hip incision is C/D/I no redness or warmth to the area no swelling noted around the incision site. Urinalysis and culture was sent the patient has a UTI was started on Cipro 500mg BID, x 7 days, will follow up with his Urinologist in a week after discharge. Meaningful Use Info Meaningful Use Diagnoses (Choose all that apply): None applicable
--- NOTE | 2017-09-07 09:53 | PCM.DC ---
- Discharge Diagnoses Reason(s) for Visit for Discharge Instructions: Total Hip Replacement You will use the following diet at home:: Regular Your food should be the consistency of: Regular Your liquids should be the consistency of: Regular/Thin Discharge Activity: Return to Normal Activity - As tolerated, when cleared by Surgeon, May Shower, Use Walker, - - Do not soak in a Tub bath Return to work on:: 09/12/17 - If ok with Surgeon Weight Bearing Status: Weight bearing as tolerated Call your doctor if your incision/area has: Increased Pain/ Swelling, Increased Redness, Foul Smelling Discharge, Swelling at the incision site Call your doctor if you observe: Fever of 101 or Higher, Coldness, Increased Pain, Numbness or Tingling, Change in Color, Inability to urinate, Inability to have a bowel movement, Using more than one pad per hour, Shortness of breath, Dizziness, Fainting spells, Swelling in the ankles, Chest pain, Prolonged hiccoughing, Increased palpitations (irregular heartbeat), Calf discomfort, Uncontrolled pain Allergies/Adverse Reactions: Allergies No Known Allergies Allergy (Verified 08/24/17 20:55) Medications to take at Discharge Cholecalciferol (Vitamin D3) [Vitamin D3] 5,000 unit PO DAILY 12/29/14 Clomipramine HCl 100 mg PO QHS 12/29/14 Docusate Calcium 240 mg PO DAILY 12/29/14 Lisinopril [Zestril] 40 mg PO DAILY 12/29/14 Multivit-Min/FA/Lycopene/Lut [Centrum Silver Tablet] 1 each PO DAILY 12/29/14 [place]-3 Fatty Acids/Fish Oil [Fish Oil 1,000 mg Capsule] 2 each PO DAILY 12/29/14 Polyethylene Glycol 3350 [Miralax] 8.5 gm PO DAILY 12/29/14 Amlodipine [Norvasc] 2.5 mg PO DAILY 03/02/16 Tamsulosin HCl [Flomax] 0.8 mg PO DAILY 08/24/17 Famotidine 20 mg PO DAILY 08/27/17 Finasteride [Proscar] 5 mg PO DAILY 08/27/17 Acetaminophen [Tylenol] 500 mg PO Q8H PRN PRN tablet 09/07/17 Calcium (Elemental) [Os-Junior 500] 500 mg PO BIDCM tablet 09/07/17 Fentanyl [Duragesic] 12 mcg TRANSDERM. Q3D 6 Days #2 patch 09/07/17 Rivaroxaban [Xarelto] 10 mg PO DAILY@0600 19 Days #19 tab 09/07/17 The following prescriptions were given: Fentanyl [Duragesic] 12 mcg TRANSDERM. Q3D 6 Days #2 patch Rivaroxaban [Xarelto] 10 mg PO DAILY@0600 19 Days #19 tab Primary Care Physician: Henrry Mcallister MD [Primary Care Provider] - Please Follow Up With: DR. Diehl Please Follow Up With: Chemo Shay MD Proposed Discharge Date: 09/07/17
[2017-09-07 09:58] VITALS: BP 101/56; PULSE 92; RESP 17; TEMP 36.7; O2SAT 91
--- NOTE | 2017-09-07 11:12 | PCM.PN.HOSP ---
Subjective: Patient started on ciprofloxacin for a urinary tract infection urine culture so far positive for gram-negative rods Objective: GENERAL: cooperative HEENT: Clear conjunctiva, NECK; supple, normal thyroid, CHEST: Diminished to auscultation bilaterally, HEART: Regular S1 S2, no audible murmurs ABDOMEN: soft, no normoactive bowel sounds, RECTAL: deferred EXTREMITIES: No edema, no clubbing, no cyanosis. RESIDENTIAL BUILDER: Awake, no lateralizing signs. Vitals/I&O's: Vital Signs Temp Pulse Resp BP Pulse Ox 98.1 F 92 17 101/56 L 91 09/07/17 09:58 09/07/17 09:58 09/07/17 09:58 09/07/17 09:58 09/07/17 09:58 Oxygen Delivery Method Room Air Weight: 59.7 kg Body Mass Index (BMI) 20.0 Intake and Output for Last 24 Hours 09/05/17 09/06/17 09/07/17 23:59 23:59 23:59 Intake Total 1900 / 1900 1670 / 1670 440 / 440 Output Total 2600 / 2600 3950 / 3950 800 / 800 Balance -700 / -700 -2280 / -2280 -360 / -360 Microbiology Past 72 Hours 09/06/17 13:15 Urine Catheter - Catheter Urine Culture - Preliminary Gram negative edi Laboratory Results 09/06/17 13:15: Urine Color Yellow, Urine Clarity Sl. Cloudy, Urine pH 6.0, Ur Specific [place] 1.010, Urine Protein 15 H, Urine Glucose (UA) Normal, Urine Ketones Negative, Urine Occult Blood 250 H, Urine Nitrite Negative, Urine Bilirubin Negative, Urine Urobilinogen Normal, Ur Leukocyte Esterase 500 H, Urine RBC 25-50 SEEN, Urine WBC 25-50 SEEN, Ur Squamous Epith Cells 0-5 SEEN, Urine Bacteria 0 SEEN, Urine Mucus 0 SEEN Current Medications Acetaminophen (Tylenol) 500 mg PO Q8H PRN PRN PRN Reason: mild/mod pain or fever Last Admin: 09/06/17 19:58 Dose: 500 mg Amlodipine Besylate (Norvasc) 2.5 mg PO DAILY [facility] Last Admin: 09/07/17 08:11 Dose: 2.5 mg Bisacodyl (Dulcolax) 10 mg RECTAL .PRN X 1 PRN PRN Reason: Constipation [facility]ior 500) [facility] Last Admin: 09/07/17 08:11 Dose: 500 mg Cholecalciferol (Vitamin D) 5,000 unit PO DAILY [facility] Last Admin: 09/07/17 08:15 Dose: 5,000 unit Ciprofloxacin HCl (Cipro) 500 mg PO BID [facility] Last Admin: 09/07/17 09:41 Dose: 500 mg Clomipramine HCl (Anafranil) 100 mg PO QHS [facility] Last Admin: 09/06/17 19:59 Dose: 100 mg Docusate Calcium (Surfak) 240 mg PO DAILY [facility] Last Admin: 09/07/17 08:11 Dose: 240 mg Famotidine (Pepcid) 20 mg PO DAILY [facility] Last Admin: 09/07/17 08:16 Dose: 20 mg Fentanyl (Duragesic) 12 mcg TRANSDERM. Q3D [facility] Last Admin: 09/05/17 08:19 Dose: 12 mcg Finasteride (Proscar) 5 mg PO DAILY [facility] Last Admin: 09/07/17 08:11 Dose: 5 mg Lisinopril (Zestril) 40 mg PO DAILY [facility] Last Admin: 09/07/17 08:16 Dose: 40 mg Magnesium Hydroxide (Milk Of Magnesia) 30 ml PO .PRN X 1 PRN PRN Reason: Constipation Multivitamins/Minerals (Multivitamin With Minerals) [facility] Last Admin: 09/07/17 08:11 Dose: 1 tablet [id number] Ethyl Esters (Lovaza) 2 gm PO DAILY [facility] Last Admin: 09/07/17 08:11 Dose: 2 gm Polyethylene Glycol (Miralax) 8.5 gm PO DAILY [facility] Last Admin: 09/07/17 08:15 Dose: 8.5 gm Polysaccharide Iron Complex (Ferrex 150) [facility] Last Admin: 09/07/17 08:12 Dose: 150 mg Rivaroxaban (Xarelto) 10 mg PO DAILY@0600 [facility] Last Admin: 09/07/17 05:44 Dose: 10 mg Senna/Docusate Sodium (Senokot-S, Anastacia-Colace) 2 tablet PO BID [facility] Last Admin: 09/07/17 08:11 Dose: 2 tablet Tamsulosin HCl (Flomax) 0.8 mg PO DAILY [facility] Last Admin: 01/31/18 08:14 Dose: 0.8 mg Assessment/Plan Patient is a 62-year-old gentleman admitted with a left femoral neck fracture underwent direct anterior total hip replacement on 08/25/17 subsequently transferred to the inpatient rehab unit where patient is currently undergoing therapy stay complicated by ileus and urinary retention which has since resolved 1. Left femoral neck fracture status post left direct anterior total hip replacement on 08/25/[address] Shay 2. BPH with obstruction (urinary retention) patient currently on finasteride and Flomax with 3. Ileus resolved 4. Hypertension-blood pressure controlled, home medications continued with dose adjustment as needed 5. DVT prophylaxis with Xarelto Code Visit Inpatient E&M: 74106 Subs Hosp L2
[2017-09-07] MEDS: Acetaminophen 500 MG Tablet PO (17:26)
[2017-09-07 19:45] VITALS: BP 101/56; PULSE 92; RESP 17; TEMP 36.7; O2SAT 91
--- NOTE | 2017-09-07 19:45 | NURSING ---
Patient and caregiver from [facility] aware of dc instruct and verbalized understanding.
== END 2017-09-07 19:45 | disposition home or self-care (01) | DRG 560 ==
PROVIDERS: Nurse Practitioner Acute Care; Admitting Provider Psychiatry & Neurology Neurology; Family Provider Family Medicine; PCP Family Medicine; Visit Provider Psychiatry & Neurology Neurology
DX: S72.002D Fracture of unspecified part of neck of left femur, subsequent encounter for closed fracture with routine healing (principal); F84.0 Autistic disorder; K56.7 Ileus, unspecified; N39.0 Urinary tract infection, site not specified; E78.5 Hyperlipidemia, unspecified; F42.9 Obsessive-compulsive disorder, unspecified; W18.30XD Fall on same level, unspecified, subsequent encounter; I10 Essential (primary) hypertension; R33.8 Other retention of urine; N40.1 Benign prostatic hyperplasia with lower urinary tract symptoms; K21.9 Gastro-esophageal reflux disease without esophagitis; Z79.899 Other long term (current) drug therapy; Z96.642 Presence of left artificial hip joint
CPT/HCPCS: 36415; 80048; 80053; 81001; 84100; 85025; 85027; 87077; 87086; 87088; 87186; 92523; 97110; 97116; 97162; 97166; 97530; 97535

== ENCOUNTER 2017-09-28 20:07 | Emergency (ER) | payer MEDICARE, MEDICAID, SELFPAY ==
[2017-09-28 20:08] VITALS: BP 136/85; PULSE 81; RESP 16; TEMP 36.1; O2SAT 99; BMI 22.4
[2017-09-28 21:06] VITALS: BP 130/80; PULSE 75; RESP 14; O2SAT 99
--- NOTE | 2017-09-28 22:52 | ED.VISSUMM ---
- ER Visit Summary Date of Service: 09/28/17 Chief Complaint: Urinary retention History of Present Illness: The patient is a 62 M presenting for evaluation due to urinary retention. Patient's recently had urinary retention had a catheter removed yesterday at 9:30 in the morning. He was instructed by his urologist that if he did not produce any urine to come back to the emergency department. Patient has not produced any urine throughout the course the day today and is having suprapubic fullness. Physical Examination: Vital signs within normal limits. Well-nourished male no acute distress. Moist mucous membranes no JVD heart regular lungs clear abdomen soft nontender. No skin rashes. Patient alert. Test Results: None indicated Emergency Department Course and Treatment: Patient presented secondary to urinary retention. Sims catheter was replaced, patient was discharged with outpatient follow-up with urology. Disposition: Discharge Impression: 1. Urinary retention This note was generated with [employer] dictation software. It may contain incorrect words, spelling, and punctuation that were not noted in review of the chart prior to signing ED Disposition - Plan for ED Patient: Disposition: Home or Assisted Living Chief Complaint: Complaint Diagnosis: Urinary retention Instructions: ED Retention Urinary Male Referrals: Alex Diehl MD [STAFF PHYSICIAN] -
--- NOTE | 2017-09-28 22:59 | ED.RN ---
DISCHARGE INSTRUCTIONS GIVEN TO AND REVIEWED WITH [employer]AMP[employer] ATTENDANT, DENIES QUESTIONS OR CONCERNS AND VOICES UNDERSTANDING OF DISCHARGE INSTRUCTIONS. PT AMBULATES WITH WALKER OUT OF DEPARTMENT WITHOUT ISSUE.
== END 2017-09-28 23:00 | disposition home or self-care (01) ==
PROVIDERS: Emergency Provider Emergency Medicine; Family Provider Family Medicine; PCP Family Medicine
DX: R33.9 Retention of urine, unspecified (principal); N40.1 Benign prostatic hyperplasia with lower urinary tract symptoms; Z79.899 Other long term (current) drug therapy
CPT/HCPCS: 51702; 99283

== ENCOUNTER 2017-10-25 21:53 | Emergency (ER) | payer MEDICARE, MEDICAID, SELFPAY ==
[2017-10-25 21:54] VITALS: BP 117/80; PULSE 133; RESP 16; TEMP 36.8; O2SAT 95; BMI 23.1
--- NOTE | 2017-10-25 22:56 | CT_ITS ---
STUDY: CT ABDOMEN AND PELVIS WITHOUT CONTRAST REASON FOR EXAM: Male, 62 years old. Abdominal pain. Apparent groin discomfort. Catheter replaced tonight. RADIATION DOSAGE (If Supplied By Facility): CTDIvol = ( 8.03 ) mGy, DLP = ( 501.67 ) mGycm TECHNIQUE: Transaxial images were obtained from the dome of the diaphragm to the symphysis pubis without oral contrast, and without intravenous contrast. Sagittal and coronal images were reconstructed. Individualized dose optimization techniques were used for this CT. COMPARISON: March 02, 2016. FINDINGS: The visualized lung bases are unremarkable. The heart is not enlarged. Small pericardial effusion. Normal liver. Normal gallbladder and extrahepatic biliary system. Normal spleen. Normal pancreas. Normal bilateral adrenal glands. Normal right kidney. Normal left kidney. Normal visualized stomach. Normal small intestine. Normal colon. Stool is present throughout the colon which may represent fecal retention. There is non-visualization of the appendix. Normal abdominal aorta. Normal inferior vena cava. Normal retroperitoneum. No intra-abdominal free air. The bladder is distended. A catheter is present which terminates in the bulbar urethra. The catheter balloon is not inflated. Normal abdominal wall. Old compression fractures mild at T11, severe at T12 and mild to moderate at L2 and L3 unchanged. Total left hip arthroplasty in normal alignment. CT/Abdomen/Pelvis without Cont IMPRESSION: Proximal position of Sims catheter. Advance catheter at least 12 cm for placement in the bladder. Possible fecal retention. Small pericardial effusion. N.B. : The above information has been verbally conveyed by Omar Morel MD to Pascale Morales , Referring Physician, on 10/26/2017 01:19:55 (ET). Electronically Signed: Omar Morel MD at 1:20 EDT , Service support , N.B. : The above information has been verbally conveyed by Omar Morel MD to Pascale Morales , Referring Physician, on 10/26/2017 01:19:55 (ET).
[2017-10-25] MEDS: Morphine 4 MG/ML Syringe IV (23:18)
[2017-10-25] MEDS: 0.9% Normal Saline 1,000 ML 125 ML IV (23:18)
[2017-10-25] MEDS: Ondansetron 4 MG/2 ML Vial IV (23:18)
[2017-10-25 23:36] LABS: Absolute Lymphocyte Count 0.92 X10^3/ul (0.83-4.51); Absolute Neutrophil Count 13.9 X10^3/uL (2.0-7.7); Basophil# 0.04 X10^3/uL; Basophil% 0.2 % (0-1); Eosinophil# 0.01 X10^3/uL; Eosinophils% 0.1 % (0-5); Hematocrit 35.9 % (40-54); Hemoglobin 12.4 g/dl (13.0-16.5); Lymphocyte # 0.92 X10^3/ul (4.0); Lymphocyte % 5.5 % (19-41); Mean Corp Hgb Conc 34.5 g/gl (32-36); Mean Corpuscular Hgb 30.6 pg (27.0-32.0); Mean Corpuscular Volume 88.6 fL (80-94); Mean Platelet Vol. 9.5 fl (6.2-12.0); Monocyte# 1.66 X10^3/uL; Neutrophil # 13.91 X10^3/uL (2.7-7.7); Platelet Count 322 K/mm3 (150-450); RBC Distribution Width CV 13.9 % (11.6-14.6); RBC Distribution Width SD 44.2 fl (35.1-43.9); Red Blood Count 4.05 M/mm3 (4.6-6.2); White Blood Count 16.6 K/mm3 (4.4-11.0)
[2017-10-25 23:37] LABS: Differential Indicated SCAN CRITERIA MET; POSITIVE COUNT NO; POSITIVE DIFFERENTIAL YES; POSITIVE MORPHOLOGY NO
[2017-10-25 23:47] LABS: ALB/GLOB Ratio 0.9 RATIO (0.9-2.4); AST(SGOT) 13 U/L (15-37); Alanine Aminotransfer ALT/SGPT 15 U/L (16-61); Albumin, Serum 3.8 g/dL (3.2-5.0); Alkaline Phosphatase 122 U/L (45-117); Anion Gap 15 (5-15); BUN 15 mg/dL (7-18); BUN/Creat Ratio 16.9 RATIO (10-20); Calcium,Total 8.8 mg/dL (8.5-10.1); Chloride 93 mmol/L (98-107); Creatinine, Serum 0.88 mg/dL (0.70-1.30); EST Glomerular Filtration Rate 93 mL/min (>60); Est Glom Filt Rate - Afr Amer 113 mL/min (>60); Estimated Creatinine Clearance 80.56 ml/min; Globulin 4.4 g/dL (2.2-4.2); Glucose 118 mg/dL (74-106); Lipase 138 U/L (73-393); Potassium 3.4 mmol/L (3.5-5.1); Protein, Total 8.2 g/dL (6.4-8.2); Sodium Level 130 mmol/L (136-145)
[2017-10-25 23:51] LABS: Mucous, Urine 0 SEEN /hpf (<or=2+); Squamous Epithelial Cells - UA 0 SEEN /hpf (0-5)
[2017-10-25 23:56] LABS: Glucose, Dipstick Normal (Normal); Ketone-Dipstick Negative (Negative); Leukocyte Esterase-Dipstick 500 /ul (Negative); Nitrite-Dipstick Positive (Negative); Occult Blood-Urine 250 /ul (Negative); Protein-Dipstick 100 mg/dl (Negative); Urine Bilirubin Dipstick Negative (Negative); Urine Clarity Cloudy (Clear); Urine Urobilinogen Normal (Normal)
[2017-10-25 23:57] LABS: Differential Comment SCANNED
[2017-10-26] VITALS: BP 127/69; PULSE 74; RESP 16; O2SAT 96
[2017-10-26 00:03] LABS: Color, Urine SEE COMMENT BELOW (Yellow)
[2017-10-26 00:04] LABS: Bacteria 2+ /hpf (None Seen); Red Blood Cells-Urine 10-25 SEEN /hpf (0-5); White Blood Cells 25-50 SEEN /hpf (0-5)
--- NOTE | 2017-10-26 01:14 | ED.RN ---
THIS RN CALLED TO ROM BY FAMILY, PT BECOMING RESTLESS AGAIN, ASKING TO GO TO BATHROOM DESPITE HAVING SAUNDERS CATHETER. CAREGIVER STATES SAUNDERS HAS BEEN DRAINING TODAY, HOWEVER NOT NEARLY MUCH USUAL. PT BLADDER SCANNED, AMOUNT NOTED TO BE GREATER THAN 999 ML. BALLOON ON SAUNDERS DEFLATED, 4 ML IN BALLOON. SAUNDERS INSERTED FURTHER, LARGE AMOUNTS OF URINE OBSERVED FLOWING THROUGH TUBING. BALLOON REINFLATED WITH 10ML INDICATED ON SAUNDERS, CATH SECURE PUT IN PLACE. IMMEDIATE RETURN OF 1500 ML OR URINE. PT RESTING COMFORTABLY, AWARE.
--- NOTE | 2017-10-26 01:23 | ED.VISSUMM ---
- ER Visit Summary Date of Service: 10/26/17 Chief Complaint: [Pain] History of Present Illness: The patient is a 62 M [who presents the emergency department and pain. He is MRDD and does not speak. He did have a Sims catheter that was placed today. Family and caregiver states that he keeps trying to have to go to the bathroom. It is draining but not as much as it normally does. He is not vomiting. His belly does appear distended. He appears very agitated and uncomfortable. He does have a history of small bowel obstruction as well.] Physical Examination: [] Heart rate 133 other vitals within normal limits WN WD anxious PERRL EOMI MMM NECK supple and nontender, no masses RRR no murmur rub or gallop, no peripheral edema, symmetric radial pulses CTAB no respiratory distress ABDOMEN is distended in the upper portion of the abdomen patient is tender it seems mostly in the upper abdomen he has normal bowel sounds SKIN is warm and dry no rashes Alert and Oriented gait is normal for him he is anxious and fidgeting there is no focal deficits he does not speak No lymphadenopathy Test Results: [] Emergency Department Course and Treatment: [Screening labs show a leukocytosis at 16.6. Urine does appear infected. Urine culture was sent. CT of the abdomen was obtained for concern for bowel obstruction however shows the catheter in the penis. He has a very distended bladder. It was advanced. He had copious urine output and felt much better. Because of his leukocytosis and urine sample he will be placed on 5 days of Cipro. They will follow-up with their urologist.] Treatment Plan: [] Disposition: [Discharge] Impression: [Malplacement of urinary catheter with urinary retention 2. UTI] This note was generated with [employer] dictation software. It may contain incorrect words, spelling, and punctuation that were not noted in review of the chart prior to signing ED Disposition - Plan for ED Patient: Chief Complaint: Abd Pain Referrals: Henrry Mcallister MD [Primary Care Provider] -
--- NOTE | 2017-10-26 01:25 | ED.DEP ---
ED Disposition - Plan for ED Patient: Chief Complaint: Abd Pain Instructions: ED Catheter Care Sims, ED UTI Cystitis Male Referrals: Alex Diehl MD [STAFF PHYSICIAN] -
[2017-10-26 01:27] VITALS: BP 128/70; PULSE 69; RESP 14; O2SAT 95
[2017-10-26] MEDS: Ciprofloxacin 500 MG Tablet PO (01:36)
[2017-10-27 10:55] LABS: Pathologist Review Reviewed
== END 2017-10-26 01:42 | disposition home or self-care (01) ==
PROVIDERS: Emergency Provider Emergency Medicine; Family Provider Family Medicine; PCP Family Medicine
DX: T83.84XA Pain due to genitourinary prosthetic devices, implants and grafts, initial encounter (principal); R33.8 Other retention of urine; N39.0 Urinary tract infection, site not specified; D72.829 Elevated white blood cell count, unspecified; I10 Essential (primary) hypertension; E78.00 Pure hypercholesterolemia, unspecified; Z79.899 Other long term (current) drug therapy
CPT/HCPCS: 74176; 80053; 81001; 83690; 85025; 87077; 87086; 87088; 87186; 96361; 96374; 96375; 99284; J7030; A4216; J2405

== ENCOUNTER 2017-11-01 20:31 | Emergency (ER) | payer MEDICARE, MEDICAID, SELFPAY ==
[2017-11-01 20:32] VITALS: BP 172/108; PULSE 104; RESP 14; TEMP 37.2; O2SAT 98; BMI 21.3
--- NOTE | 2017-11-01 20:58 | ED.DCSUM_ITS ---
- ER Visit Summary Date of Service: 11/01/17 Chief Complaint: Hematuria History of Present Illness: The patient is a 62 M who has an indwelling Sims due to prostate issues. Patient came home from work tonight and the catheter had become dislodged from his thigh clamp. There was some blood in the urine. Caregiver states that it is unusual for him not to be making more urine. Physical Examination: Afebrile vital signs stable Gen: Well-nourished well-developed Head: Normocephalic atraumatic Eyes: Perrl EOMI ENT: TMs clear no rhinorrhea moist mucous membranes Neck: Supple no lymphadenopathy no JVD nontender CVS: Regular rate rhythm no murmurs normal S1-S2 Respiratory: No distress clear to auscultation bilaterally chest nontender Abdomen: Soft nontender nondistended normal bowel sounds no masses Back: Nontender Extremity: Nontender no edema Skin: Normal color no rash Neuro: alert ambulates with walker Psych: Normal affect normal mood Emergency Department Course and Treatment: Catheter was replaced. There is no difficulty inserting. No significant urinary retention was noted. Urinalysis shows hematuria. I believe this is most likely due to trauma from the catheter not being attached to the leg. There have been no clots in the bag. We will have the urine monitored and I would expect it to clear. Impression: 1. Hematuria This note was generated with [employer] dictation software. It may contain incorrect words, spelling, and punctuation that were not noted in review of the chart prior to signing ED Disposition - Plan for ED Patient: Disposition: Home or Assisted Living Chief Complaint: Sims C/O Instructions: Discharge Instructions: Caring for Your Indwelling Urinary Catheter Referrals: Alex Diehl MD [STAFF PHYSICIAN] - Keep Ry appointment
[2017-11-01 21:43] LABS: Bacteria 0 SEEN /hpf (None Seen); Mucous, Urine 0 SEEN /hpf (<or=2+); Squamous Epithelial Cells - UA 0 SEEN /hpf (0-5)
[2017-11-01 21:45] LABS: Color, Urine Red (Yellow); Glucose, Dipstick Normal (Normal); Ketone-Dipstick Negative (Negative); Leukocyte Esterase-Dipstick 500 /ul (Negative); Nitrite-Dipstick Negative (Negative); Occult Blood-Urine 250 /ul (Negative); Protein-Dipstick 30 mg/dl (Negative); Urine Bilirubin Dipstick Negative (Negative); Urine Clarity Cloudy (Clear); Urine Urobilinogen Normal (Normal)
[2017-11-01 21:51] LABS: Red Blood Cells-Urine > 100 SEEN /hpf (0-5); White Blood Cells 0-5 SEEN /hpf (0-5)
== END 2017-11-01 22:05 | disposition home or self-care (01) ==
PROVIDERS: Emergency Provider Emergency Medicine; Family Provider Family Medicine; PCP Family Medicine
DX: R31.9 Hematuria, unspecified (principal); K21.9 Gastro-esophageal reflux disease without esophagitis; I10 Essential (primary) hypertension; E78.00 Pure hypercholesterolemia, unspecified; Z79.899 Other long term (current) drug therapy
CPT/HCPCS: 51702; 81001; 99283

== ENCOUNTER 2019-05-25 09:08 | Emergency (ER) | payer MEDICARE, MEDICAID, SELFPAY ==
[2019-05-25 09:10] VITALS: BP 143/102; PULSE 93; RESP 16; TEMP 36.6; O2SAT 94; BMI 24.2
--- NOTE | 2019-05-25 09:21 | RAD_ITS ---
STUDY: X-RAY - ABDOMEN/PELVIS REASON FOR EXAM: Male, 64 years old. Unable to urinate. Constipation. TECHNIQUE: Single AP view of the abdomen / pelvis. COMPARISON: None. FINDINGS: Normal visualized lung bases. There is an abundance of fecal material throughout the colon. The visualized liver, spleen and kidneys are grossly normal in size and morphology. Normal soft tissue structures. Prior left total hip replacement. Deformity of the right femoral neck. RAD/Abdomen Single View IMPRESSION: Large amount of fecal material is seen in the colon. Electronically Signed: Syed Calderon, at 10:08 EDT , Service support ,
--- NOTE | 2019-05-25 09:27 | ED.VISSUMM ---
- ER Visit Summary Date of Service: 05/25/19 Chief Complaint: Constipation History of Present Illness: The patient is a 64 M presenting with constipation. Caregiver states that she believes his last bowel movement was on Tuesday. He has a history of constipation. She states in the past he has had difficulty urinating when he becomes constipated. This morning he was unable to urinate. He has a history of autism and mild MR. No fever. No other complaints. Physical Examination: Vitals are stable. Patient is afebrile. Alert no acute distress. HEENT exam is unremarkable. Neck is supple. Lungs are clear and equal bilaterally. Heart is regular rate and rhythm. Abdomen is soft nontender nondistended. No guarding or rebound Rectal: no stool impaction Extremities are unremarkable. Skin is warm and dry. Remainder of exam is unremarkable. Emergency Department Course and Treatment: Patient is able to urinate in the ED without difficulty. Abdominal x-ray shows large amount of fecal material is seen in the colon. He was given soapsuds enema with no relief. Patient is given mag citrate for home. Advised to follow-up with primary care physician. Advised return to ED for worsening complaints. Disposition: Discharge home Impression: Constipation This note was generated with [employer] dictation software. It may contain incorrect words, spelling, and punctuation that were not noted in review of the chart prior to signing ED Disposition - Plan for ED Patient: Instructions: CONSTIPATION (Adult) Referrals: Henrry Mcallister MD [NON-STAFF] -
--- NOTE | 2019-05-25 11:48 | ED.DEP ---
ED Disposition - Plan for ED Patient: Instructions: CONSTIPATION (Adult) Referrals: Henrry Mcallister MD [NON-STAFF] -
[2019-05-25 12:06] VITALS: BP 138/90; PULSE 77; RESP 16; O2SAT 98
[2019-05-25] MEDS: Magnesium Citrate 300 ML PO (12:10)
== END 2019-05-25 12:11 | disposition home or self-care (01) ==
LOC: ED 09:31
PROVIDERS: Emergency Provider Emergency Medicine; Family Provider Family Medicine; PCP Family Medicine
DX: K59.00 Constipation, unspecified (principal); F84.0 Autistic disorder
CPT/HCPCS: 74018; 99284

== ENCOUNTER 2024-01-14 11:42 | Emergency (ER) | payer MEDICARE, MEDICAID, SELFPAY ==
[2024-01-14 11:43] VITALS: BP 154/96; PULSE 89; RESP 16; TEMP 36.6; O2SAT 99; BMI 23.8
--- NOTE | 2024-01-14 12:02 | CT_ITS ---
STUDY: CT ABDOMEN AND PELVIS WITHOUT CONTRAST REASON FOR EXAM: Male, 68 years old. Abdominal pain RADIATION DOSAGE (If Supplied By Facility): CTDIvol = ( 13.55 ) mGy, DLP = ( 714.39 ) mGycm TECHNIQUE: Transaxial images were obtained from the dome of the diaphragm to the symphysis pubis without oral contrast, and without intravenous contrast. Sagittal and coronal images were reconstructed. Individualized dose optimization techniques were used for this CT. COMPARISON: October 25, 2017. FINDINGS: Mild lower lung airspace increased opacities. There are coronary artery calcifications. Normal liver. Normal gallbladder and extrahepatic biliary system. Normal spleen. Normal pancreas. Normal bilateral adrenal glands. Normal right kidney. Normal left kidney. Normal visualized stomach. Normal small intestine. Normal colon. There is abundant stool. There is non-visualization of the appendix. There is atherosclerotic calcification of the abdominal aorta, without a demonstrated aneurysm. Normal inferior vena cava. Normal retroperitoneum. Normal urinary bladder. There is no free fluid in the abdomen or pelvis. Normal abdominal wall. There is scoliosis and degenerative change of the spine. There are compression fractures in the thoracic and lumbar spine. There is left hip replacement. CT/Abdomen/Pelvis without Cont IMPRESSION: Abundant stool. No obstruction. Electronically Signed: Chirag Daniels MD at 13:09 EDT ,
--- NOTE | 2024-01-14 12:02 | EDS_ITS ---
HPI HPI - GI History of Present Illness Chief Complaint: Abd Pain Detail of Chief Complaint: Abdominal pain and possible constipation Narrative Narrative: Patient presents to the emergency department with caregiver from senior living with complaint of abdominal pain and possible constipation. Patient has history of autism and is relatively nonverbal. Apparently has been straining to have bowel movement several times today. He has complained of some abdominal pain. His last known bowel movement was about 3 days ago. Patient has had history of constipation in the past and takes MiraLAX. He has not had any fevers or chills or sweats. He had no vomiting. Currently he denies abdominal pain and shakes his head no. PFSH PFS Medical History (Updated 01/14/24 @ 13:[address] Radha Garner, DO) Urine retention Small and colonic ileus Home Medications ?Medication ?Instructions ?Recorded ?Last Taken ?Type cholecalciferol (vitamin D3) 125 5,000 unit PO DAILY supplement 12/29/14 Unknown History mcg (5,000 unit) capsule clomipramine 75 mg capsule 100 mg PO QHS ocd 12/29/14 08/26/17 21:20 History docusate calcium 240 mg capsule 240 mg PO DAILY laxative 12/29/14 Unknown History lisinopril 40 mg tablet (Zestril) 40 mg PO DAILY bp 12/29/14 Unknown History [id number] acid 0.4 1 ea PO DAILY supplement 12/29/14 Unknown History mg-lycopene 300 mcg-lutein 250 mcg tablet (Centrum Silver) omega-3 fatty acids-fish oil 340 2 ea PO DAILY supplement 12/29/14 Unknown History mg-1,000 mg capsule (Fish Oil) polyethylene glycol 3350 17 gram 8.5 g PO DAILY costipation 12/29/14 Unknown History oral powder packet amlodipine 2.5 mg tablet 2.5 mg PO DAILY bp 03/02/16 Unknown History tamsulosin 0.4 mg capsule 0.8 mg PO DAILY retention 08/24/17 Unknown History famotidine 20 mg tablet 20 mg PO DAILY gastric acid [place] [employer] 08/27/17 Unknown History finasteride 5 mg tablet 5 mg PO DAILY urine flow 08/27/17 Unknown History acetaminophen 500 mg tablet 500 mg PO Q8H PRN PRN mild/mod 09/07/17 Unknown Rx pain or fever calcium carbonate (Oyster Shell 500 mg PO BIDCM 09/07/17 Unknown Rx Calcium 500) Allergy/AdvReac Type Severity Reaction Status Date / Time No Known Allergies Allergy Verified 01/14/24 11:44 Social History Smoking Status: Never smoker ROS ROS ED Review of Systems ROS Unobtainable: other Constitutional Constitutional ED: Reports lethargy; Denies chills, fever(s), sweats or weight loss Eyes Eyes: Denies blurry vision, change in vision or diplopia ENT ENT ED: Denies rhinorrhea or sore throat Cardiovascular Cardiovascular: Denies chest pain, orthopnea or racing heartbeat Respiratory/Chest Respiratory/Chest: Denies cough, dyspnea, dyspnea on exertion, orthopnea or sputum Gastrointestinal Gastrointestinal: Reports abdominal pain and constipation; Denies diarrhea, nausea or vomiting Genitourinary Genitourinary ED: Denies dysuria, hematuria or urinary frequency Musculoskeletal Musculoskeletal: Denies arthralgias, back pain, myalgias or neck pain Integumentary Denies abscess, Abrasions or rash Neurologic Neurologic: Denies headache(s) or weakness Psychiatric Psychiatric: Denies anxiety, depression or suicidal thoughts Endocrine Endocrinology: Denies polydipsia, polyphagia or polyuria Hematologic/Lymphatic Hematologic/Lymphatic: Denies easy bleeding, easy bruising or lymphadenopathy Allergic/Immunologic Allergic/Immunologic ED: Denies mouth swelling, tongue swelling or urticaria EXAM Physical Exam Const Vital Signs: 01/14/24 11:43 Temperature 98 F Temperature Source Temporal Pulse Rate 89 Respiratory Rate 16 Blood Pressure 154/96 H Blood Pressure Mean 115 Pulse Ox 99 Oxygen Delivery Method Room Air Positive well nourished and well developed General Appearance ED: well developed and NAD HEENT Reports TM's clear and moist mucous membranes normocephalic and atraumatic; Negative for trauma or tenderness Tympanic Membrane ED: Yes TM's clear Eyes PERRL and EOMs intact bilaterally General Eye ED: Negative for pale conjunctiva or scleral icterus Neck no lymphadenopathy, supple and no JVD General: Negative for tenderness Chest Wall inspection of chest normal and palpation of chest normal Chest: Negative for tenderness Resp normal respiratory effort and clear to auscultation bilaterally Effort and Inspection: Negative for respiratory distress or pain with movement Auscultation: Negative for rhonchi, wheezes or diminished lung sounds Cardio regular rate, regular rhythm, S1 normal heart sound, S2 normal heart sound and no murmurs Peripheral Pulses: pulses 2+ throughout GI normal to inspection, nondistended, normoactive bowel sounds, soft to palpation, non-tender, non-distended and no masses GI Narrative: Rectal exam performed and there was no evidence of impaction and there was brown stool. No masses palpated. No fissures noted. Back/Spine no CVA tenderness and no thoracic nor lumbar tenderness Extremity normal to inspection General Extremety ED: Negative for edema General Extremity: Negative for edema Neuro oriented x3, CN's II-XII intact bilaterally, no sensory deficits noted and gait normal Sensorium / Orientation: awake, alert, oriented to person, oriented to place and oriented to time Motor Exam: strength 5/5 throughout and strength abnormal Psych mental status grossly normal Skin no rashes or lesions noted and no wounds MDM MDM MDM Narrative Medical decision making narrative: Patient presents with abdominal pain and possible constipation. Clinically looks well. On digital rectal exam there was no impaction. IV line established. CBC with differential obtained showed white count 11.7 with hemoglobin 13.6 and platelet count of 280. Chemistries unremarkable. LFTs were normal. Lipase was normal. Patient had a CT scan of the abdomen pelvis that showed stool throughout the colon and consistent with constipation. No bowel obstruction or other acute abnormality. Discussed results with caregiver. Discussed with patient and he does not want to do an enema. I will send him home with magnesium citrate. Advised to return if fever, vomiting, worsening pain, or condition should worsen anyway. Lab Data Attestation: I reviewed the patient's lab results. Labs: Laboratory Results - last 24 hr 01/14/24 12:25 WBC 11.7 H RBC 4.41 L Hgb 13.6 Hct 41.2 MCV 93.4 MCH 30.8 MCHC 33.0 RDW Std Deviation 44.3 H RDW Coeff of Abigail 12.9 Plt Count 280 MPV 9.5 Immature Gran % (Auto) 0.600 Neut % (Auto) 87.7 H Lymph % (Auto) 4.8 L [place] % (Auto) 6.6 Eos % (Auto) 0.0 Baso % (Auto) 0.3 Absolute Neuts (auto) 10.3 H Absolute Lymphs (auto) 0.56 L Nucleated RBC % 0 Sodium 132 L Potassium 3.7 Chloride 100 Carbon Dioxide 25.0 Anion Gap 7 BUN 14 Creatinine 0.87 Estim Creat Clear Calc 78.09 Est GFR (MDRD) Af Amer 113 Est GFR (MDRD) Non-Af 94 BUN/Creatinine Ratio 16.2 Glucose 137 H Calcium 9.0 Total Bilirubin 0.40 AST 17 ALT 24 Alkaline Phosphatase 93 Total Protein 7.8 Albumin 3.4 Globulin 4.4 H Albumin/Globulin Ratio 0.8 L Lipase 36 Radiography Diagnostic Testing: Clinical Impression(s) from Imaging Studies Abdomen/Pelvis CT 01/14/24 12:02 IMPRESSION: Abundant stool. No obstruction. Electronically Signed: Chirag Daniels MD at 13:09 EDT , Discharge Plan Triage Chief Complaint: Abd Pain ED Provider: Radha Garner Dx/Rx/DC Orders Clinical Impression: Abdominal pain, Constipation Instructions: ED Constipation (Adult) Prescriptions: No Action polyethylene glycol 3350 17 GM powder in packet 8.5 g PO DAILY Patient Comments: constipation clomipramine 75 MG capsule 100 mg PO QHS Patient Comments: OCD docusate calcium 240 MG capsule 240 mg PO DAILY Patient Comments: laxative lisinopril [Zestril] 40 MG tablet 40 mg PO DAILY Patient Comments: blood pressure cholecalciferol (vitamin D3) 5,000 UNIT capsule 5,000 unit PO DAILY Patient Comments: supplement [id number]-GG-lycopen-lutein [Centrum Silver] 1 EACH tablet 1 ea PO DAILY Patient Comments: supplement omega-3 fatty acids-fish oil [Fish Oil] 1 EACH capsule 2 ea PO DAILY Patient Comments: supplement amlodipine 2.5 MG tablet 2.5 mg PO DAILY Patient Comments: blood pressure tamsulosin 0.4 MG capsule 0.8 mg PO DAILY Patient Comments: retention famotidine 20 MG tablet 20 mg PO DAILY Patient Comments: gastric acid [place] finasteride 5 MG tablet 5 mg PO DAILY Patient Comments: improve urine flow acetaminophen 500 MG tablet 500 mg PO Q8H PRN PRN (Reason: mild/mod pain or fever) 0RF calcium carbonate [Oyster Shell Calcium 500] 500 MG tablet 500 mg PO BIDCM 0RF Primary Care Provider: Kyler Pena Referrals: Kyler Pena MD [Primary Care Provider] - 3-5 Days Print Language: Gambian Disposition Disposition: Home, Self Care
[2024-01-14 12:38] LABS: Absolute Lymphocyte Count 0.56 X10^3/uL (0.83-4.51); Absolute Neutrophil Count 10.3 X10^3/uL (2.0-7.7); Basophil# 0.04 X10^3/uL; Basophil% 0.3 % (0-1); Hematocrit 41.2 % (40-54); Hemoglobin 13.6 g/dL (13.0-16.5); Lymphocyte # 0.56 X10^3/ul (0.83-4.51); Lymphocyte % 4.8 % (19-41); Mean Corpuscular Hgb 30.8 pg (27.0-32.0); Mean Corpuscular Volume 93.4 fL (80-94); Mean Platelet Vol. 9.5 fl (6.2-12.0); Monocyte# 0.78 X10^3/uL; Monocyte% 6.6 % (0-10); NRBC Flagged by Analyzer 0 % (0-5); Neutrophil # 10.28 X10^3/uL (2.7-7.7); Neutrophil % 87.7 % (47-70); POSITIVE DIFFERENTIAL YES; Platelet Count 280 K/mm3 (150-450); RBC Distribution Width CV 12.9 % (11.6-14.6); RBC Distribution Width SD 44.3 fl (35.1-43.9); Red Blood Count 4.41 M/mm3 (4.6-6.2); White Blood Count 11.7 K/mm3 (4.4-11.0)
[2024-01-14 12:55] LABS: ALB/GLOB Ratio 0.8 RATIO (0.9-2.4); AST(SGOT) 17 U/L (15-37); Alanine Aminotransfer ALT/SGPT 24 U/L (16-61); Albumin, Serum 3.4 g/dL (3.2-5.0); Alkaline Phosphatase 93 U/L (45-117); Anion Gap 7 (5-15); BUN 14 mg/dL (7-18); BUN/Creat Ratio 16.2 RATIO (10-20); Chloride 100 mmol/L (98-107); Creatinine, Serum 0.87 mg/dL (0.70-1.30); EST Glomerular Filtration Rate 94 mL/min (>60); Est Glom Filt Rate - Afr Amer 113 mL/min (>60); Estimated Creatinine Clearance 78.09 ml/min; Globulin 4.4 g/dL (2.2-4.2); Glucose 137 mg/dL (74-106); Lipase 36 U/L (13-75); Potassium 3.7 mmol/L (3.5-5.1); Protein, Total 7.8 g/dL (6.4-8.2); Sodium Level 132 mmol/L (136-145)
[2024-01-14] MEDS: Magnesium Citrate 300 ML PO (13:24)
[2024-01-14 13:30] VITALS: BP 128/64; PULSE 72; RESP 16; TEMP 36.7; O2SAT 97
== END 2024-01-14 13:31 | disposition home or self-care (01) ==
PROVIDERS: Emergency Provider Emergency Medicine; PCP Family Medicine; Visit Provider Emergency Medicine
DX: R10.9 Unspecified abdominal pain (principal); K59.00 Constipation, unspecified; F84.0 Autistic disorder
CPT/HCPCS: 74176; 80053; 83690; 85025; 99283; A4216